=== PATIENT | female | born 1985 | race Caucasian/White ===

== ENCOUNTER 2018-01-29 12:08 | Emergency (ER) | payer OTHER, MEDICAID, SELFPAY ==
[2018-01-29 12:18] VITALS: BP 122/74; PULSE 92; RESP 24; TEMP 37.6; O2SAT 97
--- NOTE | 2018-01-29 12:18 | ED_ITS ---
HPI - Female Genitourinary <GALDINO Jason - Last Filed: 01/29/18 22:24> General Chief complaint: Urogenital-Female Stated complaint: BACK PAIN,FEVER,THINKS KIDNEY ISSUE Time Seen by Provider: 01/29/18 12:19 Source: patient Mode of arrival: ambulatory Limitations: no limitations History of Present Illness HPI Narrative: 32-year-old female with history of depression and is an every day smoker here for complaint of left flank pain and generalized abdominal pain over the last 4 days. She also reports that she has had low-grade fever and increased urinary frequency. Positive p.o. intake. Last bowel movement was One week ago. She states that this is not normal for her. she reports she has been using heroin Intravenously over the past couple of weeks. She denies any blood in her urine. She denies any trauma to the abdomen or the flank area. Related Data Previous Rx's Medication Instructions Recorded sertraline [Zoloft] 150 mg PO Q DAY #45 tab 06/12/16 ciprofloxacin HCl 500 mg PO BID #14 tab 01/29/18 hydrocodone-acetaminophen 1 tab PO Q4-6H PRN #10 tab 01/29/18 Allergies Allergy/AdvReac Type Severity Reaction Status Date / Time SULFA Allergy Severe HIVES Uncoded 08/19/17 12:28 Review of Systems <GALDINO Jason - Last Filed: 01/29/18 22:24> Constitutional Reports fever(s) Eyes Denies change in vision, Denies eye discharge, Denies irritation and Denies loss of vision ENT Ears, Nose, Mouth, and Throat: Denies change in voice, Denies neck pain and Denies sore throat Cardiovascular Denies chest pain, Denies irregular heart rhythm, Denies lightheadedness, Denies palpitations, Denies dyspnea, Denies dyspnea on exertion and Denies orthopnea Respiratory Denies cough, Denies dyspnea, Denies dyspnea on exertion and Denies wheezing Gastrointestinal Gastrointestinal: Reports abdominal pain Genitourinary Reports flank pain and Reports urinary urgency Musculoskeletal Denies neck pain Integumentary/Breasts Denies pruritus, Denies erythema, Denies rash and Denies wounds Neurologic Denies confusion and Denies loss of vision Psychiatric Denies anxiety, Denies confusion, Denies depression, Denies homicidal ideation and Denies suicidal ideation Endocrine Denies palpitations Hematologic/Lymphatic Denies easy bruising Allergic/Immunologic Denies wheezing Exam <GALDINO Jason - Last Filed: 01/29/18 22:24> Initial Vital Signs Initial Vital Signs: Vital Signs Temperature 99.6 F 01/29/18 12:18 Pulse Rate 92 H 01/29/18 12:18 Respiratory Rate 24 01/29/18 12:18 Blood Pressure 122/74 01/29/18 12:18 Pulse Oximetry 97 01/29/18 12:18 Const General: cooperative and well developed Nutritional Appearance: well nourished Orientation: alert, awake, oriented x3 and not confused HENPA Mouth: oral mucosae normal and oropharynx normal Eyes Conjunctivae: conjunctivae normal Sclera: sclerae normal Pupils: PERRL EOM: EOM intact bilaterally Resp Effort & Inspection: normal respiratory effort, able to speak in complete sentences, no respiratory distress and no use of accessory muscles Auscultation: clear to auscultation bilaterally, no rales, no rhonchi and no wheezes Cardio Rate: regular rate Rhythm: regular rhythm Heart Sounds: no click, no gallops, no murmurs and no rubs GI Inspection: non-distended Palpation: soft, no hepatosplenomegaly, No guarding, No pulsatile mass and tender ( Generalized tenderness) Auscultation: normal bowel sounds General: CVA tenderness ( left CVA tenderness) Skin General: no rashes or lesions noted, No jaundice and No petechiae Neuro General: alert, oriented x3, gait normal and no focal motor deficits Speech: speech normal <Arnav Schneider DO - Last Filed: 02/05/18 23:12> Initial Vital Signs Initial Vital Signs: Vital Signs Temperature 99.6 F 01/29/18 12:18 Pulse Rate 92 H 01/29/18 12:18 Respiratory Rate 24 01/29/18 12:18 Blood Pressure 122/74 01/29/18 12:18 Pulse Oximetry 97 01/29/18 12:18 Course <GALDINO Jason - Last Filed: 01/29/18 22:24> Orders Ordered: Discontinued Medications Hydromorphone HCl (Dilaudid) 0.5 mg IV NOW ONE Stop: 01/29/18 12:28 Last Admin: 01/29/18 12:42 Dose: 0.5 mg Hydromorphone HCl (Dilaudid) 1 mg IV NOW ONE Stop: 01/29/18 14:00 Last Admin: 01/29/18 14:27 Dose: 1 mg Sodium Chloride (Normal Saline 0.9%) 1,000 mls @ 1,000 mls/hr IV BOLUS ONE Stop: 01/29/18 13:26 Last Infusion: 01/29/18 15:41 Dose: 0 mls/hr Admin: 01/29/18 12:41 Dose: 1,000 mls/hr Ceftriaxone Sodium/Dextrose (Rocephin) 1 gm in 50 mls @ 100 mls/hr IV NOW ONE Stop: 01/29/18 13:52 Last Infusion: 01/29/18 14:31 Dose: 0 mls/hr Admin: 01/29/18 13:35 Dose: 100 mls/hr Ketorolac Tromethamine (Toradol) 30 mg IV NOW ONE Stop: 01/29/18 12:28 Last Admin: 01/29/18 12:42 Dose: 30 mg Ondansetron HCl (Zofran) 4 mg IV NOW ONE Stop: 01/29/18 12:28 Last Admin: 01/29/18 12:42 Dose: 4 mg Vital Signs - 8 hr 01/29/18 14:37 01/29/18 15:52 Temperature 98.4 F Pulse Rate 81 90 Respiratory Rate 18 16 Blood Pressure 100/68 Pulse Oximetry 100 99 <Arnav Schneider DO - Last Filed: 02/05/18 23:12> Orders Ordered: Discontinued Medications Hydromorphone HCl (Dilaudid) 0.5 mg IV NOW ONE Stop: 01/29/18 12:28 Last Admin: 01/29/18 12:42 Dose: 0.5 mg Hydromorphone HCl (Dilaudid) 1 mg IV NOW ONE Stop: 01/29/18 14:00 Last Admin: 01/29/18 14:27 Dose: 1 mg Sodium Chloride (Normal Saline 0.9%) 1,000 mls @ 1,000 mls/hr IV BOLUS ONE Stop: 01/29/18 13:26 Last Infusion: 01/29/18 15:41 Dose: 0 mls/hr Admin: 01/29/18 12:41 Dose: 1,000 mls/hr Ceftriaxone Sodium/Dextrose (Rocephin) 1 gm in 50 mls @ 100 mls/hr IV NOW ONE Stop: 01/29/18 13:52 Last Infusion: 01/29/18 14:31 Dose: 0 mls/hr Admin: 01/29/18 13:35 Dose: 100 mls/hr Ketorolac Tromethamine (Toradol) 30 mg IV NOW ONE Stop: 01/29/18 12:28 Last Admin: 01/29/18 12:42 Dose: 30 mg Ondansetron HCl (Zofran) 4 mg IV NOW ONE Stop: 01/29/18 12:28 Last Admin: 01/29/18 12:42 Dose: 4 mg Vital Signs - 8 hr 01/29/18 14:37 01/29/18 15:52 Temperature 98.4 F Pulse Rate 81 90 Respiratory Rate 18 16 Blood Pressure 100/68 Pulse Oximetry 100 99 MDM - Female Genitourinary <GALDINO Jason - Last Filed: 01/29/18 22:24> Lab Data Result diagrams: 01/29/18 12:25 01/29/18 12:25 Lab Results 01/29/18 01/29/18 01/29/18 Range/Units 12:25 12:25 12:25 WBC 15.2 H (4.5-11.0) X10^3/uL RBC 4.14 (4.0-5.2) X10^6/uL Hgb 12.7 (12.0-16.0) g/dL Hct 36.2 (36-46) % MCV 87.6 (80-100) fL MCH 30.7 (26-34) PG MCHC 35.0 (30-36) % RDW 13.4 (11.6-14.8) % Plt Count 254 (150-400) X10^3/uL Neut % (Auto) 83.5 H (50-75) % Lymph % (Auto) 7.4 L (25-40) % [place] % (Auto) 8.9 (3-14) % Eos % (Auto) 0.1 L (2-4) % Baso % (Auto) 0.1 (0-2) % Neut # (Auto) 79183 H (7896-9043) /uL Sodium 140 (137-145) mmol/L Potassium 3.5 (3.4-5.1) mmol/L Chloride 100 (98-107) mmol/L Carbon Dioxide 26 (22-32) mmol/L BUN 9 (7-17) mg/dL Creatinine 0.80 (0.52-1.04) mg/dL Estimated GFR > 60.0 (>60) mL/min BUN/Creatinine Ratio 11.3 (6-22) Glucose 155 H (70-100) mg/dL Lactate (0.7-2.1) mmol/L Calcium 8.8 (8.4-10.2) mg/dL Total Bilirubin 0.7 (0.2-1.3) mg/dL AST 18 (14-36) IU/L ALT 32 (9-52) IU/L Alkaline Phosphatase 89 (38-126) U/L Total Protein 7.5 (6.3-8.2) g/dL Albumin 4.3 (3.5-5.0) g/dL Globulin 3.2 (1.7-4.1) g/dL Albumin/Globulin Ratio 1.3 (1.0-2.8) Lipase < 10 L (23-300) U/L Procalcitonin 0.31 (<0.5) ng/mL Urine Color Urine Appearance Urine pH (4.5-8.0) Ur Specific [place] (1.000-1.035) Urine Protein (Negative) Urine Glucose (UA) (Normal) g/dL Urine Ketones (NEGATIVE) Urine Occult Blood (Negative) Urine Nitrate (Negative) Urine Bilirubin (NEGATIVE) Urine Urobilinogen (0.2) E.U./dL Ur Leukocyte Esterase (NEGATIVE) Urine RBC (0-5/HPF) Urine WBC (0-5/HPF) Ur Squamous Epith Cells Urine Bacteria (None) Ur Culture Indicated? Micro UA Comment 01/29/18 01/29/18 Range/Units 12:25 13:21 WBC (4.5-11.0) X10^3/uL RBC (4.0-5.2) X10^6/uL Hgb (12.0-16.0) g/dL Hct (36-46) % MCV (80-100) fL MCH (26-34) PG MCHC (30-36) % RDW (11.6-14.8) % Plt Count (150-400) X10^3/uL Neut % (Auto) (50-75) % Lymph % (Auto) (25-40) % [place] % (Auto) (3-14) % Eos % (Auto) (2-4) % Baso % (Auto) (0-2) % Neut # (Auto) (9557-5763) /uL Sodium (137-145) mmol/L Potassium (3.4-5.1) mmol/L Chloride (98-107) mmol/L Carbon Dioxide (22-32) mmol/L BUN (7-17) mg/dL Creatinine (0.52-1.04) mg/dL Estimated GFR (>60) mL/min BUN/Creatinine Ratio (6-22) Glucose (70-100) mg/dL Lactate 0.9 (0.7-2.1) mmol/L Calcium (8.4-10.2) mg/dL Total Bilirubin (0.2-1.3) mg/dL AST (14-36) IU/L ALT (9-52) IU/L Alkaline Phosphatase (38-126) U/L Total Protein (6.3-8.2) g/dL Albumin (3.5-5.0) g/dL Globulin (1.7-4.1) g/dL Albumin/Globulin Ratio (1.0-2.8) Lipase (23-300) U/L Procalcitonin (<0.5) ng/mL Urine Color Yellow Urine Appearance Cloudy Urine pH 5.0 (4.5-8.0) Ur Specific [place] 1.015 (1.000-1.035) Urine Protein 2+ H (Negative) Urine Glucose (UA) Negative (Normal) g/dL Urine Ketones Trace H (NEGATIVE) Urine Occult Blood 3+ H (Negative) Urine Nitrate Positive H (Negative) Urine Bilirubin Negative (NEGATIVE) Urine Urobilinogen 0.2 (0.2) E.U./dL Ur Leukocyte Esterase 2+ H (NEGATIVE) Urine RBC 1-5/hpf (0-5/HPF) Urine WBC >100/hpf H (0-5/HPF) Ur Squamous Epith Cells 1-5 /hpf Urine Bacteria Many (>30) H (None) Ur Culture Indicated? Specimen cultured Micro UA Comment Not Reportable Point of Care Testing Test Results Negative Urine Dip Bedside Urine Glucose Negative Bedside Urine Bilirubin - Negative Bedside Urine Ketone +/- 5 Urine Specific [place] 1.020 Bedside Urine Occult Blood ++ Bedside Urine pH 6.0 Bedside Urine Protein ++ 100 Bedside Urine Urobilinogen - Negative Bedside Urine Nitrite + Positive Bedside Urine Leukocytes +++ [address] scan - abdomen: Radiologist's impression: [address] [id number] [address] Scan Report Signed Patient: Macarena Banuelos MMR#: [id number] : 1985Acct:[id number] Age/Sex: 32 / FDate of Service: 01/29/18 Loc: ED Accession Number: [id number] Procedure: CT abdomen pelvis w con Ordering Provider: Fritz Youngblood PROCEDURE: CT ABDOMEN PELVIS W CON INDICATIONS: Generalized abdominal pain and left flank pain TECHNIQUE: After the administration of oral and intravenous contrast, 5 mm thick sections acquired from the diaphragms to the symphysis. 5 mm thick coronal and sagittal reformats were performed. For radiation dose reduction, the following was used: automated exposure control, adjustment of mA and/or kV according to patient size. COMPARISON: None. FINDINGS: Image quality: Diagnostic. ABDOMEN: Lung bases: There is mild atelectasis identified within the bilateral posterior lung bases. The heart is normal in size. There is no pericardial effusion. Heart size is normal. Solid organs: The liver is normal in size. The patient has had a prior cholecystectomy. There is mild intrahepatic and extrahepatic biliary dilatation, which may be within normal limits, given the patient's prior cholecystectomy. The spleen is mildly enlarged approximately 12.5 cm in AP dimension. No focal splenic lesions are evident. The pancreas and adrenals are unremarkable. The right kidney is within normal limits. There is perinephric edema identified about the left kidney with corresponding urothelial enhancement and mild prominence of the left ureter. There is a calcification identified near the expected location of the distal vesicoureteral junction, which may represent a phlebolith. However, the possibility of a small partially obstructing left ureteral calculus is difficult to exclude. Peritoneum and bowel: Stomach, small bowel, and colon loops are normal in caliber and wall thickness. No free fluid or air. No loculated fluid collections are evident. The appendix is not definitely seen and may be surgically absent. There is a large amount of residual stool identified within the colon. Nodes and vessels: No retroperitoneal or mesenteric adenopathy. Aorta and inferior vena cava are normal in caliber. Miscellaneous: No ventral hernias. PELVIS: Genitourinary: Bladder wall thickness is normal. The uterus and ovaries do not appear to be enlarged. Miscellaneous: No inguinal hernias or adenopathy. There is no free fluid or loculated fluid collection. Bones: No suspicious bony lesions. No vertebral body compression fractures. IMPRESSION: 1. Prominent left perinephric and periureteral edema is most suspicious for an ascending urinary tract infection/developing pyelonephritis. However, there is a calcification near the expected location of the vesicoureteral junction. The possibility of partially obstructing calculus with superimposed infection is difficult to exclude. Please correlate clinically. 2. Colonic constipation. 3. Mild bibasilar atelectasis. 4. Mild intrahepatic and extrahepatic biliary dilatation likely is related to previous cholecystectomy. 5. Mild splenomegaly. Dictated by: Carlos Golden M.D. on 01/29/2018 at 12:32 Approved by: Carlos Golden M.D. on 01/29/2018 at 12:40 MDM Narrative Medical decision making narrative: CT shows elevated white count of 15 K. Chem panel and lipase were obtained were unremarkable. Urinalysis indicates urinary tract infection. CT of the abdomen was obtained and shows some fat stranding and inflammation to the left kidney. There is a possible partial obstructing small stone. Discussed case with Urology at doctor enciso who feels the patient is safe to go home on oral antibiotics with close follow- up. She is instructed to return to the emergency room right away for worsening fever. Worsening pain or other complications. Follow up with primary care provider in the next few days for re-evaluation. Plenty of fluids. She is prescribed ciprofloxacin. Zofran for any nausea vomiting. And Colbert for pain. <Arnav Schneider, DO - Last Filed: 02/05/18 23:12> Lab Data Lab Results 01/29/18 01/29/18 01/29/18 Range/Units 12:25 12:25 12:25 WBC 15.2 H (4.5-11.0) X10^3/uL RBC 4.14 (4.0-5.2) X10^6/uL Hgb 12.7 (12.0-16.0) g/dL Hct 36.2 (36-46) % MCV 87.6 (80-100) fL MCH 30.7 (26-34) PG MCHC 35.0 (30-36) % RDW 13.4 (11.6-14.8) % Plt Count 254 (150-400) X10^3/uL Neut % (Auto) 83.5 H (50-75) % Lymph % (Auto) 7.4 L (25-40) % [place] % (Auto) 8.9 (3-14) % Eos % (Auto) 0.1 L (2-4) % Baso % (Auto) 0.1 (0-2) % Neut # (Auto) 26096 H (4503-1960) /uL Sodium 140 (137-145) mmol/L Potassium 3.5 (3.4-5.1) mmol/L Chloride 100 (98-107) mmol/L Carbon Dioxide 26 (22-32) mmol/L BUN 9 (7-17) mg/dL Creatinine 0.80 (0.52-1.04) mg/dL Estimated GFR > 60.0 (>60) mL/min BUN/Creatinine Ratio 11.3 (6-22) Glucose 155 H (70-100) mg/dL Lactate (0.7-2.1) mmol/L Calcium 8.8 (8.4-10.2) mg/dL Total Bilirubin 0.7 (0.2-1.3) mg/dL AST 18 (14-36) IU/L ALT 32 (9-52) IU/L Alkaline Phosphatase 89 (38-126) U/L Total Protein 7.5 (6.3-8.2) g/dL Albumin 4.3 (3.5-5.0) g/dL Globulin 3.2 (1.7-4.1) g/dL Albumin/Globulin Ratio 1.3 (1.0-2.8) Lipase < 10 L (23-300) U/L Procalcitonin 0.31 (<0.5) ng/mL Urine Color Urine Appearance Urine pH (4.5-8.0) Ur Specific [place] (1.000-1.035) Urine Protein (Negative) Urine Glucose (UA) (Normal) g/dL Urine Ketones (NEGATIVE) Urine Occult Blood (Negative) Urine Nitrate (Negative) Urine Bilirubin (NEGATIVE) Urine Urobilinogen (0.2) E.U./dL Ur Leukocyte Esterase (NEGATIVE) Urine RBC (0-5/HPF) Urine WBC (0-5/HPF) Ur Squamous Epith Cells Urine Bacteria (None) Ur Culture Indicated? Micro UA Comment 01/29/18 01/29/18 Range/Units 12:25 13:21 WBC (4.5-11.0) X10^3/uL RBC (4.0-5.2) X10^6/uL Hgb (12.0-16.0) g/dL Hct (36-46) % MCV (80-100) fL MCH (26-34) PG MCHC (30-36) % RDW (11.6-14.8) % Plt Count (150-400) X10^3/uL Neut % (Auto) (50-75) % Lymph % (Auto) (25-40) % [place] % (Auto) (3-14) % Eos % (Auto) (2-4) % Baso % (Auto) (0-2) % Neut # (Auto) (7395-6068) /uL Sodium (137-145) mmol/L Potassium (3.4-5.1) mmol/L Chloride (98-107) mmol/L Carbon Dioxide (22-32) mmol/L BUN (7-17) mg/dL Creatinine (0.52-1.04) mg/dL Estimated GFR (>60) mL/min BUN/Creatinine Ratio (6-22) Glucose (70-100) mg/dL Lactate 0.9 (0.7-2.1) mmol/L Calcium (8.4-10.2) mg/dL Total Bilirubin (0.2-1.3) mg/dL AST (14-36) IU/L ALT (9-52) IU/L Alkaline Phosphatase (38-126) U/L Total Protein (6.3-8.2) g/dL Albumin (3.5-5.0) g/dL Globulin (1.7-4.1) g/dL Albumin/Globulin Ratio (1.0-2.8) Lipase (23-300) U/L Procalcitonin (<0.5) ng/mL Urine Color Yellow Urine Appearance Cloudy Urine pH 5.0 (4.5-8.0) Ur Specific [place] 1.015 (1.000-1.035) Urine Protein 2+ H (Negative) Urine Glucose (UA) Negative (Normal) g/dL Urine Ketones Trace H (NEGATIVE) Urine Occult Blood 3+ H (Negative) Urine Nitrate Positive H (Negative) Urine Bilirubin Negative (NEGATIVE) Urine Urobilinogen 0.2 (0.2) E.U./dL Ur Leukocyte Esterase 2+ H (NEGATIVE) Urine RBC 1-5/hpf (0-5/HPF) Urine WBC >100/hpf H (0-5/HPF) Ur Squamous Epith Cells 1-5 /hpf Urine Bacteria Many (>30) H (None) Ur Culture Indicated? Specimen cultured Micro UA Comment Not Reportable Point of Care Testing Test Results Negative Urine Dip Bedside Urine Glucose Negative Bedside Urine Bilirubin - Negative Bedside Urine Ketone +/- 5 Urine Specific [place] 1.020 Bedside Urine Occult Blood ++ Bedside Urine pH 6.0 Bedside Urine Protein ++ 100 Bedside Urine Urobilinogen - Negative Bedside Urine Nitrite + Positive Bedside Urine Leukocytes +++ 500 Esterase Discharge Plan Departure Patient Disposition: Home Clinical Impression: Pyelonephritis Discharge Date/Time: 01/29/18 15:55 Interventions: ED Discharge Assessment Last Done: 01/29/18 15:52 Instructions: DI for Kidney Infection Activity Restrictions/Additional Instructions: laboratory results indicate elevated white count and urinalysis indicates urinary tract infection. CT of the abdomen shows inflammation to the left kidney area indicating a kidney infection. You have been placed on an antibiotic called ciprofloxacin use as directed. UR also prescribed Zofran to help with any nausea also use as directed. Colbert is prescribed for pain no driving while on the Col[place]. Follow up with her primary care provider in the next couple days for re-evaluation. Plenty of fluids and rest. For any worsening symptoms return to the emergency room. Prescriptions: New hydrocodone-acetaminophen 5-325 mg tablet 1 tab PO Q4-6H PRN (Reason: pain) Qty: 10 RF: 0 ciprofloxacin HCl 500 mg tablet 500 mg PO BID Qty: 14 RF: 0 No Action sertraline [Zoloft] 100 MG tablet 150 mg PO Q DAY Qty: 45 RF: 3 Referrals: Lisa pSann PA-C [Primary Care Provider] - <Arnav Schneider DO - Last Filed: 02/05/18 23:12> Cosign ED Attending Cosignature Attestation: I was immediately available in the department for consultation. Documentation has been reviewed. I agree with assessment and plan.
[2018-01-29] MEDS: SODIUM CHLORIDE 0.9% 1,000 ML 1000 ML IV (12:41)
[2018-01-29 12:42] LABS: Add Manual Diff / Slide Review NO; Basophils Percent Auto 0.1 % (0-2); Eosinophils Percent Auto 0.1 % (2-4); Hematocrit 36.2 % (36-46); Hemoglobin 12.7 g/dL (12.0-16.0); Lymphocytes Percent Auto 7.4 % (25-40); Mean Corpuscular Hemoglobin 30.7 PG (26-34); Mean Corpuscular Volume 87.6 fL (80-100); Monocytes Percent Auto 8.9 % (3-14); Neutrophils Absolute Auto 12700 /uL (3000-5900); Neutrophils Percent Auto 83.5 % (50-75); Platelet Count 254 X10^3/uL (150-400); Red Blood Cell Count 4.14 X10^6/uL (4.0-5.2); Red Cell Distribution Width 13.4 % (11.6-14.8); White Blood Cell Count 15.2 X10^3/uL (4.5-11.0)
[2018-01-29] MEDS: KETOROLAC 60 MG/2 ML VIAL 30 MG IV (12:42)
[2018-01-29] MEDS: ONDANSETRON 4 MG/2 ML INJ IV (12:42)
[2018-01-29] MEDS: HYDROMORPHONE 1 MG INJ 0.5 MG IV (12:42)
[2018-01-29 12:58] LABS: Alanine Aminotransferase 32 IU/L (9-52); Albumin 4.3 g/dL (3.5-5.0); Albumin Globulin Ratio 1.3 (1.0-2.8); Alkaline Phosphatase 89 U/L (38-126); Aspartate Aminotransferase 18 IU/L (14-36); BUN Creatinine Ratio 11.3 (6-22); Bilirubin Total 0.7 mg/dL (0.2-1.3); Blood Urea Nitrogen 9 mg/dL (7-17); Calcium 8.8 mg/dL (8.4-10.2); Carbon Dioxide 26 mmol/L (22-32); Chloride 100 mmol/L (98-107); Estimated Glomerular Filt Rate > 60.0 mL/min (>60); Globulin 3.2 g/dL (1.7-4.1); Glucose 155 mg/dL (70-100); HEMOLYSIS < 15 (0-50); Potassium 3.5 mmol/L (3.4-5.1); Sodium 140 mmol/L (137-145); Total Protein 7.5 g/dL (6.3-8.2)
[2018-01-29 13:00] LABS: Lipase < 10 U/L (23-300)
--- NOTE | 2018-01-29 13:11 | DI.CT.S_ITS ---
PROCEDURE: CT ABDOMEN PELVIS W CON INDICATIONS: Generalized abdominal pain and left flank pain TECHNIQUE: After the administration of oral and intravenous contrast, 5 mm thick sections acquired from the diaphragms to the symphysis. 5 mm thick coronal and sagittal reformats were performed. For radiation dose reduction, the following was used: automated exposure control, adjustment of mA and/or kV according to patient size. COMPARISON: None. FINDINGS: Image quality: Diagnostic. ABDOMEN: Lung bases: There is mild atelectasis identified within the bilateral posterior lung bases. The heart is normal in size. There is no pericardial effusion. Heart size is normal. Solid organs: The liver is normal in size. The patient has had a prior cholecystectomy. There is mild intrahepatic and extrahepatic biliary dilatation, which may be within normal limits, given the patient's prior cholecystectomy. The spleen is mildly enlarged approximately 12.5 cm in AP dimension. No focal splenic lesions are evident. The pancreas and adrenals are unremarkable. The right kidney is within normal limits. There is perinephric edema identified about the left kidney with corresponding urothelial enhancement and mild prominence of the left ureter. There is a calcification identified near the expected location of the distal vesicoureteral junction, which may represent a phlebolith. However, the possibility of a small partially obstructing left ureteral calculus is difficult to exclude. Peritoneum and bowel: Stomach, small bowel, and colon loops are normal in caliber and wall thickness. No free fluid or air. No loculated fluid collections are evident. The appendix is not definitely seen and may be surgically absent. There is a large amount of residual stool identified within the colon. Nodes and vessels: No retroperitoneal or mesenteric adenopathy. Aorta and inferior vena cava are normal in caliber. Miscellaneous: No ventral hernias. PELVIS: Genitourinary: Bladder wall thickness is normal. The uterus and ovaries do not appear to be enlarged. Miscellaneous: No inguinal hernias or adenopathy. There is no free fluid or loculated fluid collection. Bones: No suspicious bony lesions. No vertebral body compression fractures. IMPRESSION: 1. Prominent left perinephric and periureteral edema is most suspicious for an ascending urinary tract infection/developing pyelonephritis. However, there is a calcification near the expected location of the vesicoureteral junction. The possibility of partially obstructing calculus with superimposed infection is difficult to exclude. Please correlate clinically. 2. Colonic constipation. 3. Mild bibasilar atelectasis. 4. Mild intrahepatic and extrahepatic biliary dilatation likely is related to previous cholecystectomy. 5. Mild splenomegaly. Dictated by: Carlos Golden M.D. on 01/29/2018 at 12:32 Approved by: Carlos Golden M.D. on 01/29/2018 at 12:40
[2018-01-29 13:32] LABS: Appearance Urine UA CLOUDY; Bilirubin Urine UA NEGATIVE (NEGATIVE); Color Urine UA YELLOW; Glucose Urine UA NEGATIVE (Normal); Ketones Urine UA TRACE (NEGATIVE); Leukocyte Esterase Urine UA 2+ (NEGATIVE); Nitrite Urine UA POSITIVE (Negative); Occult Blood Urine UA 3+ (Negative); Protein Urine UA 2+ (Negative); Specific Gravity Urine UA 1.015 (1.000-1.035); Urobilinogen Urine UA 0.2 E.U./dL (0.2)
[2018-01-29] MEDS: CEFTRIAXONE 1 GM/50 ML FROZ.PIGGY IV (13:35)
[2018-01-29 13:42] LABS: Bacteria Urine Many (>30); Culture Indicated Urine Specimen Cultured; RBC Urine 1-5/HPF (0-5/HPF); Squamous Epithelial Cell Urine 1-5 /HPF; WBC Urine >100/HPF (0-5/HPF)
[2018-01-29 13:42] LABS: Lactate (Lactic Acid) 0.9 mmol/L (0.7-2.1)
[2018-01-29 13:57] LABS: Procalcitonin 0.31 ng/mL (<0.5)
[2018-01-29] MEDS: HYDROMORPHONE 1 MG INJ IV (14:27)
[2018-01-29 14:37] VITALS: PULSE 81; RESP 18; O2SAT 100
[2018-01-29 15:52] VITALS: BP 100/68; PULSE 90; RESP 16; TEMP 36.9; O2SAT 99
== END 2018-01-29 15:55 | disposition home or self-care (01) ==
PROVIDERS: Emergency Provider Nurse Practitioner Family; Family Provider Nurse Practitioner Family; PCP Physician Assistant
DX: N12 Tubulo-interstitial nephritis, not specified as acute or chronic (principal)
CPT/HCPCS: 36415; 36591; 74177; 80053; 81001; 81003; 81025; 83605; 83690; 84145; 85025; 87040; 87077; 87086; 87186; 96361; 96365; 96375; 96376; 99283; 99285; J1170; J1885; J2405; Q9967

== ENCOUNTER 2018-02-12 04:19 | Emergency (ER) | payer OTHER, MEDICAID, SELFPAY ==
[2018-02-12 04:29] VITALS: BP 139/90; PULSE 95; RESP 18; TEMP 36.6; O2SAT 97; BMI 29.2
--- NOTE | 2018-02-12 04:58 | ED.SKABFB ---
HPI - Skin/Abscess/Foreign Bdy General Chief complaint: Skin/Abscess/Foreign Body Stated complaint: right forearm swollen, abscess Time Seen by Provider: 02/12/18 04:25 Source: patient Mode of arrival: ambulatory Limitations: no limitations History of Present Illness HPI narrative: patient is a 32-year-old female here for evaluation of which he thinks is an abscess on her right forearm and also in her genital area. She states that the abscess in the right forearm has been there for approximately 4 days. She does admit to be a IV drug user and did inject herself at that site. Has never had an abscess that has needed to be drained in the past. She states that the abscess in her groin has been there for the past couple days. She states that this is unrelated to any injections. She states that this abscess has been draining green material for the past day or so. No fevers. Related Data Previous Rx's Medication Instructions Recorded sertraline [Zoloft] 150 mg PO Q DAY #45 tab 06/12/16 ciprofloxacin HCl 500 mg PO BID #14 tab 01/29/18 hydrocodone-acetaminophen 1 tab PO Q4-6H PRN #10 tab 01/29/18 doxycycline monohydrate 100 mg PO BID 7 Days #14 cap 02/12/18 Allergies Allergy/AdvReac Type Severity Reaction Status Date / Time SULFA Allergy Severe HIVES Uncoded 08/19/17 12:28 Review of Systems Constitutional Denies fever(s) and Denies headache(s) ENT Ears, Nose, Mouth, and Throat: Denies headache(s) Cardiovascular Denies chest pain and Denies dyspnea Respiratory Denies dyspnea Gastrointestinal Gastrointestinal: Denies abdominal pain, Denies nausea and Denies vomiting Genitourinary Denies dysuria and Denies vaginal discharge Musculoskeletal Denies myalgias and Denies arthralgias Integumentary/Breasts Comments: Abscess and redness to the right forearm and also to the groin Neurologic Denies headache(s) Hematologic/Lymphatic Denies easy bleeding and Denies easy bruising [facility] Medical History Drug abuse (Acute) Surgical History No pertinent past surgical history (Acute) Social History (Reviewed 02/12/18 @ 05:00 by KATHARINE Judge Smoking Status: Current every day smoker Exam Initial Vital Signs Initial Vital Signs: Vital Signs Temperature 98 F 02/12/18 04:29 Pulse Rate 95 H 02/12/18 04:29 Respiratory Rate 18 02/12/18 04:29 Blood Pressure 139/90 02/12/18 04:29 Pulse Oximetry 97 02/12/18 04:29 Const General: cooperative, comfortable, well developed, well groomed and No acute distress Orientation: alert, awake and oriented x3 Resp Effort & Inspection: normal respiratory effort Skin Other: patient with a 3 cm round indurated red area on the volar aspect of the right forearm just distal to the elbow. Has a 20-25 cm area of surrounding erythema. Patient with a 4 cm area of induration on the right labia majora. Has a 0.5 cm area that is spontaneously draining. No surrounding erythema. Procedures Abscess I/D Site: upper extremity Side (if applicable): right Sedation/analgesia: none Local Anesthetic: lidocaine 1% and with epi Amount of anesthesia used (mL): 6 Technique: other ( Fifteen blade) Amount of fluid expressed (mL): 20 Irrigation: No Packing used?: iodoform Complications: pain Course Vital Signs - 8 hr 02/12/18 04:29 Temperature 98 F Pulse Rate 95 H Respiratory Rate 18 Blood Pressure 139/90 Pulse Oximetry 97 MDM - Skin/Abscess/Foreign Bdy MDM Narrative Medical decision making narrative: bedside ultrasound shows the right forearm abscess. This was incised and drained as described above. Patient tolerated procedure well. The right labia majora abscess was also incised with a 15 blade. Only a small amount of purulent material returned. No packing was used in this area. Patient tolerated this procedure well. This was anesthetized with approximately 3 cc of 1% lidocaine with epinephrine. Secondary to the surrounding cellulitis of the right forearm abscess will start the patient on antibiotics. Also sent home with the short course of pain medication. Patient was given care instructions. She was instructed she needed to contact her primary care doctor for a follow-up. She was given return instructions. She expressed understanding and agreement with plan. Discharge Plan Departure Patient Disposition: Home Clinical Impression: Abscess of skin or subcutaneous tissue Instructions: Drug Abuse and Drug Addiction, Incision and Drainage of a Skin Abscess Activity Restrictions/Additional Instructions: the packing in the incision of her right forearm does need to be removed/ changed in 48 hr. This can be done by her primary doctor. Call your primary doctor for a follow-up. You can shower like normal. You can use soap and water like normal. Take all the medications as directed. Return to the emergency department for any new or worsening symptoms Prescriptions: New doxycycline monohydrate 100 mg capsule 100 mg PO BID 7 Days Qty: 14 RF: 0 No Action sertraline [Zoloft] 100 MG tablet 150 mg PO Q DAY Qty: 45 RF: 3 hydrocodone-acetaminophen 5-325 mg tablet 1 tab PO Q4-6H PRN (Reason: pain) Qty: 10 RF: 0 ciprofloxacin HCl 500 mg tablet 500 mg PO BID Qty: 14 RF: 0
[2018-02-12] MEDS: HYDROCODONE/ACET 5/325 PREPACK 1 BOTTLE MISC (05:13)
--- NOTE | 2018-02-18 15:37 | PC.NURSE ---
Pt called for follow up,pts condition improving. Pt did not feel like we could have done anything to improve visit.
== END 2018-02-12 05:18 | disposition home or self-care (01) ==
PROVIDERS: Emergency Provider Emergency Medicine; Family Provider Nurse Practitioner Family; PCP Physician Assistant
DX: L02.413 Cutaneous abscess of right upper limb (principal)
CPT/HCPCS: 10060; 99282

== ENCOUNTER 2018-03-23 16:50 | Emergency (ER) | payer OTHER, MEDICAID, SELFPAY ==
[2018-03-23 16:57] VITALS: BP 121/82; PULSE 111; RESP 20; TEMP 37.1; O2SAT 99; BMI 26.6
--- NOTE | 2018-03-23 18:26 | PC.NURSE ---
pt given ice pack for arm in waiting room.
--- NOTE | 2018-03-23 19:15 | PC.NURSE ---
pt not in waiting room, walked out to parking lot no sign of pt. pin attacher aware.
--- NOTE | 2018-03-23 19:59 | PC.NURSE ---
pt returned to ER, explained to pt in order to be seen they must be present in waiting room when called. Pt verbalized understanding. hot metal charger aware.
[2018-03-23 21:12] LABS: Alanine Aminotransferase 40 IU/L (9-52); Albumin 3.9 g/dL (3.5-5.0); Albumin Globulin Ratio 1.3 (1.0-2.8); Alkaline Phosphatase 88 U/L (38-126); Aspartate Aminotransferase 43 IU/L (14-36); Bilirubin Total 0.5 mg/dL (0.2-1.3); Blood Urea Nitrogen 6 mg/dL (7-17); Calcium 8.5 mg/dL (8.4-10.2); Carbon Dioxide 27 mmol/L (22-32); Chloride 100 mmol/L (98-107); Estimated Glomerular Filt Rate > 60.0 mL/min (>60); Glucose 87 mg/dL (70-100); HEMOLYSIS 31 (0-50); Potassium 3.8 mmol/L (3.4-5.1); Sodium 140 mmol/L (137-145); Total Protein 6.9 g/dL (6.3-8.2)
[2018-03-23 21:14] LABS: Add Manual Diff / Slide Review NO; Basophils Percent Auto 0.6 % (0-2); Eosinophils Percent Auto 1.4 % (2-4); Hematocrit 35.9 % (36-46); Lymphocytes Percent Auto 17.4 % (25-40); Mean Corpuscular HGB Conc 33.4 % (30-36); Mean Corpuscular Hemoglobin 29.4 PG (26-34); Mean Corpuscular Volume 88.1 fL (80-100); Monocytes Percent Auto 7.8 % (3-14); Neutrophils Absolute Auto 8800 /uL (3000-5900); Neutrophils Percent Auto 72.8 % (50-75); Platelet Count 338 X10^3/uL (150-400); Red Blood Cell Count 4.08 X10^6/uL (4.0-5.2); Red Cell Distribution Width 13.8 % (11.6-14.8)
--- NOTE | 2018-03-23 22:08 | DI.US.S_ITS ---
PROCEDURE: US EXTREMELY NONVASC UPPER RT INDICATIONS: abscess, appears over vascular area TECHNIQUE: Real-time scanning was performed of the right antecubital fossa, with image documentation. COMPARISON: [facility], US, US EXTREMITY NONVASC UPPER LT, 03/23/2018, 23:30. FINDINGS: 3.9 x 1.5 x 4.1 cm region of ill-defined heterogeneous mass within the right antecubital fossa corresponding to the palpable abnormality. Color flow Doppler demonstrates internal vascularity. IMPRESSION: Findings suggestive of right antecubital fossa phlegmon and no drainable fluid collection seen at this time. Note: These findings are concordant with the preliminary interpretation. Dictated by: Torito COLLINS Interpreted: Parisa Garcia MD on 03/24/2018 at 8:04 Approved by: Parisa Garcia M.D. on 03/24/2018 at 15:38
--- NOTE | 2018-03-23 22:08 | DI.US.S_ITS ---
PROCEDURE: US EXTREMITY NONVASC UPPER LT INDICATIONS: ANTECUBITAL FOSSA MASS; POSSIBLE ABSCESS TECHNIQUE: Real-time scanning was performed of the left antecubital fossa, with image documentation. COMPARISON: [facility], US, US EXTREMELY NONVASC UPPER RT, 03/23/2018, 23:33. [facility], CT, CT ABDOMEN PELVIS W CON, 01/29/2018, 13:04. FINDINGS: 5.5 x 2.5 x 4.4 cm complex, ill-defined soft tissue mass present corresponding to the palpable abnormality. Color Doppler demonstrates internal vascularity. IMPRESSION: Findings suggesting phlegmon involving the left antecubital fossa and no drainable fluid collection is seen at this time. Note: These findings are concordant with the preliminary interpretation. Dictated by: Torito COLLINS Interpreted: Parisa Garcia MD on 03/24/2018 at 8:02 Approved by: Praisa Garcia M.D. on 03/24/2018 at 15:38
--- NOTE | 2018-03-23 22:09 | ED.SKABFB ---
HPI - Skin/Abscess/Foreign Bdy General Chief complaint: Skin/Abscess/Foreign Body Stated complaint: STATES ABSCESSES ON BOTH ARMS Time Seen by Provider: 03/23/18 21:58 Source: patient Mode of arrival: ambulatory Limitations: no limitations History of Present Illness HPI narrative: This is a 32-year-old female comes to the emergency department with complaint of abscesses in her bilateral upper extremities. Patient states that she injected about 4 5 days ago on both sides. She started having swelling signs of infection. She may have had some fevers, she has had some nausea and vomiting. No chest pain, no shortness of breath. No new GI or urinary symptoms. She is having quite a bit of pain in her upper extremities and in the area of the swelling. No numbness or tingling, no weakness or difficulty with litigation services manager. She denies any other medical history. She denies any prior surgeries. She has an allergy to sulfa antibiotics. Related Data Previous Rx's Medication Instructions Recorded sertraline [Zoloft] 150 mg PO Q DAY #45 tab 06/12/16 clindamycin HCl 300 mg PO QID #40 cap 03/24/18 meloxicam [Mobic] 7.5 mg PO BID #10 tab 03/24/18 Allergies Allergy/AdvReac Type Severity Reaction Status Date / Time Sulfa (Sulfonamide Allergy Verified 03/23/18 17:00 Antibiotics) Review of Systems Review of Systems All systems reviewed & are unremarkable except as noted in HPI and below Constitutional Reports chills, Denies fever(s) and Denies weakness Cardiovascular Denies chest pain and Denies dyspnea Respiratory Denies dyspnea Gastrointestinal Gastrointestinal: Denies abdominal pain, Reports nausea and Reports vomiting Genitourinary Denies urinary frequency Musculoskeletal Denies tingling Integumentary/Breasts Reports erythema, Reports skin swelling and Reports wounds Neurologic Denies focal weakness, Denies tingling and Denies weakness [facility] Medical History Drug abuse (Acute) Surgical History No pertinent past surgical history (Acute) Social History Smoking Status: Current every day smoker Exam Narrative Exam Narrative: GENERAL: Alert and oriented x three, Obese, well-appearing female in moderate distress. HEENT: Head normocephalic, atraumatic, EOMI, pupils reactive, face symmetric, moist mucous membranes NECK: Supple, full range of motion CARDIOVASCULAR: Regular rate and rhythm without murmurs, rubs or gallops. RESPIRATORY: Breath sounds equal bilaterally, no wheezes rales or rhonchi. ABDOMEN: Soft, nontender. Normoactive bowel sounds all 4 quadrants. No guarding or rebound, rigidity, no mass : No CVA tenderness EXTREMITIES: Normal range of motion, no clubbing, Patient has a a large abscess on both the right and left inner elbow, Um over the area where her brachial artery would be. It is erythematous, both or fluctuant, the Um left has some skin breakdown adjacent, there is no circumferential erythema but it is extending about 4 5 cm out. Um on the right patient has a small area of 4 cm, there is fluctuance also over the area where the brachial artery would be.. Neurovascularly intact. Patient has 2+ radial pulses bilaterally. She has full range of motion although she does not wish to flex and bend her elbows. NEUROLOGICAL: Cranial nerves II through XII grossly intact. Moving all extremities SKIN: Warm, dry, no petechiae, no rashes or lesions. Initial Vital Signs Initial Vital Signs: Vital Signs Temperature 98.7 F 03/23/18 16:57 Pulse Rate 111 H 03/23/18 16:57 Respiratory Rate 20 03/23/18 16:57 Blood Pressure 121/82 03/23/18 16:57 Pulse Oximetry 99 03/23/18 16:57 Procedures Abscess I/D Site: upper extremity (left forearm) Side (if applicable): left Local Anesthetic: lidocaine 1% Amount of anesthesia used (mL): 6 Technique: incised with #11 blade Amount of fluid expressed (mL): 15 Packing used?: iodoform [facility] Procedure Name of Procedure: I and D #2. right forearm/elbow. Area was prepped. 4 cc of lidocaine was injected into the site. No blood was aspirated prior to injection. Abscess was incised with a[11] blade. There was moderate purulent drainage. Area was probed to break up loculations, abscess was packed with iodoform cultures were obtained. Hemostasis was achieved. Course Orders Ordered: ED Orders 03/23/18 20:50 Complete Blood Count AUTO DIFF Stat Comprehensive Metabolic Panel Stat 03/23/18 22:08 US extremity nonvasc upper lt Stat US extremity nonvasc upper rt Stat 03/24/18 02:44 Abscess Culture Stat Discontinued Medications Clindamycin HCl (Cleocin) 300 mg PO NOW ONE Stop: 03/24/18 01:56 Last Admin: 03/24/18 02:03 Dose: 300 mg Diphtheria/Tetanus/Acell Pertussis (Adacel) 0.5 ml IM .ONCE ONE Stop: 03/24/18 01:56 Last Admin: 03/24/18 02:03 Dose: 0.5 ml Hydromorphone HCl (Dilaudid) 1 mg IV NOW ONE Stop: 03/23/18 22:08 Last Admin: 03/23/18 22:36 Dose: 1 mg Hydromorphone HCl (Dilaudid) 1 mg IV NOW ONE Stop: 03/24/18 00:11 Last Admin: 03/24/18 00:26 Dose: 1 mg Hydromorphone HCl (Dilaudid) 1 mg IV NOW ONE Stop: 03/24/18 01:56 Last Admin: 03/24/18 02:03 Dose: 1 mg Vancomycin HCl 1,500 mg/ (Sodium Chloride) 500 mls @ 333.333 mls/hr IV NOW ONE Stop: 03/23/18 22:08 Last Infusion: 03/24/18 00:47 Dose: 0 mls/hr Admin: 03/23/18 22:36 Dose: 333.333 mls/hr Vital Signs - 8 hr 03/23/18 22:57 03/23/18 23:12 Temperature 98.4 F Pulse Rate 86 Respiratory Rate 20 Blood Pressure [Right Arm] 108/65 Pulse Oximetry 96 MDM - Skin/Abscess/Foreign Bdy Lab Data Result diagrams: 03/23/18 20:50 03/23/18 20:50 Lab Results 03/23/18 03/23/18 Range/Units 20:50 20:50 WBC 12.0 H (4.5-11.0) X10^3/uL RBC 4.08 (4.0-5.2) X10^6/uL Hgb 12.0 (12.0-16.0) g/dL Hct 35.9 L (36-46) % MCV 88.1 (80-100) fL MCH 29.4 (26-34) PG MCHC 33.4 (30-36) % RDW 13.8 (11.6-14.8) % Plt Count 338 (150-400) X10^3/uL Neut % (Auto) 72.8 (50-75) % Lymph % (Auto) 17.4 L (25-40) % [place] % (Auto) 7.8 (3-14) % Eos % (Auto) 1.4 L (2-4) % Baso % (Auto) 0.6 (0-2) % Neut # (Auto) 8800 H (4862-1351) /uL Sodium 140 (137-145) mmol/L Potassium 3.8 (3.4-5.1) mmol/L Chloride 100 (98-107) mmol/L Carbon Dioxide 27 (22-32) mmol/L BUN 6 L (7-17) mg/dL Creatinine 0.50 L (0.52-1.04) mg/dL Estimated GFR > 60.0 (>60) mL/min BUN/Creatinine Ratio 12.0 (6-22) Glucose 87 (70-100) mg/dL Calcium 8.5 (8.4-10.2) mg/dL Total Bilirubin 0.5 (0.2-1.3) mg/dL AST 43 H (14-36) IU/L ALT 40 (9-52) IU/L Alkaline Phosphatase 88 (38-126) U/L Total Protein 6.9 (6.3-8.2) g/dL Albumin 3.9 (3.5-5.0) g/dL Globulin 3.0 (1.7-4.1) g/dL Albumin/Globulin Ratio 1.3 (1.0-2.8) Imaging Data upper ext US b/l: Radiologist's impression: right upper extremity has a 3.9 x 1.5 x 4.1 cm complex mixed echo focus with increased vascularity may represent earlier forming abscess or phlegmon. Left forearm shows a 5.5 x 2.5 x 4.4 cm mixed echo focus in the antecubital fossa with increased vascularity may representing early or forming abscess. MDM Narrative Medical decision making narrative: Patient started on vancomycin here in the emergency department. Ultrasound was ordered as the abscesses appear over the area of the brachial artery and when she do an incision and drainage if she has a blood vessel through the abscess. Patient has not had fever, no signs of sepsis at this time. WBC is 12. Patient has bilateral abscess with surrounding cellulitis but not extensive. Plan for recheck in 6-8 hours and will re-assess regarding continued IV abx and/or further treatment of abscess. Culture was sent. Patient given first dose of clindamycin to take this morning and rx for antibiotics and mobic sent to pharmacy. Discharge Plan Departure Patient Disposition: Home Clinical Impression: Abscess of multiple sites Instructions: DI for Skin Abscess Activity Restrictions/Additional Instructions: Return between 8 and 9:00 a.m. today for recheck and possible additional IV antibiotics. Wound Care: Keep wound(s) clean and dry. Wash daily with soap and water only. Do not use over the counter products (alcohol or peroxide)on the wounds unless instructed by a physician. If wound condition worsens (increased/expanding redness, developing fluid blisters, or worsening pain), either contact your doctor for an urgent re-assessment , or return to the Emergency Department. Return to the Emergency Department for any new or worsening symptoms. Return to the ED, urgent care, or vist a primary care doctor for removal packing removal. Return if fever greater than 100.4 Fahrenheit, increased swelling, increasing pain or worsening symptoms such as increased discharge or spreading redness. Use warm compresses 3 times daily for 20 minutes to the affected area. If there is packing in place do not pull it out, if it falls out do not try to replace it. return for rapidly increasing swelling, new numbness, weakness or inability to litigation services manager remove your arms, rapidly increasing pain or other new or concerning symptoms. Prescriptions: New clindamycin HCl 300 mg capsule 300 mg PO QID Qty: 40 RF: 0 meloxicam [Mobic] 7.5 mg tablet 7.5 mg PO BID Qty: 10 RF: 0 No Action sertraline [Zoloft] 100 MG tablet 150 mg PO Q DAY Qty: 45 RF: 3
--- NOTE | 2018-03-23 22:12 | ED_ITS ---
HPI - Skin/Abscess/Foreign Bdy General Chief complaint: Skin/Abscess/Foreign Body Stated complaint: STATES ABSCESSES ON BOTH ARMS Time Seen by Provider: 03/23/18 21:58 Source: patient Mode of arrival: ambulatory Limitations: no limitations History of Present Illness HPI narrative: This is a 32-year-old female comes to the emergency department with complaint of abscesses in her bilateral upper extremities. Patient states that she injected about 4 5 days ago on both sides. She started having swelling signs of infection. She may have had some fevers, she has had some nausea and vomiting. No chest pain, no shortness of breath. No new GI or urinary symptoms. She is having quite a bit of pain in her upper extremities and in the area of the swelling. No numbness or tingling, no weakness or difficulty with group care worker. She denies any other medical history. She denies any prior surgeries. She has an allergy to sulfa antibiotics. Related Data Previous Rx's Medication Instructions Recorded sertraline [Zoloft] 150 mg PO Q DAY #45 tab 06/12/16 clindamycin HCl 300 mg PO QID #40 cap 03/24/18 meloxicam [Mobic] 7.5 mg PO BID #10 tab 03/24/18 Allergies Allergy/AdvReac Type Severity Reaction Status Date / Time Sulfa (Sulfonamide Allergy Verified 03/23/18 17:00 Antibiotics) Review of Systems Review of Systems All systems reviewed & are unremarkable except as noted in HPI and below Constitutional Reports chills, Denies fever(s) and Denies weakness Cardiovascular Denies chest pain and Denies dyspnea Respiratory Denies dyspnea Gastrointestinal Gastrointestinal: Denies abdominal pain, Reports nausea and Reports vomiting Genitourinary Denies urinary frequency Musculoskeletal Denies tingling Integumentary/Breasts Reports erythema, Reports skin swelling and Reports wounds Neurologic Denies focal weakness, Denies tingling and Denies weakness ON LICENSE OF [facility] Medical History Drug abuse (Acute) Surgical History No pertinent past surgical history (Acute) Social History Smoking Status: Current every day smoker Exam Narrative Exam Narrative: GENERAL: Alert and oriented x three, Obese, well-appearing female in moderate distress. HEENT: Head normocephalic, atraumatic, EOMI, pupils reactive, face symmetric, moist mucous membranes NECK: Supple, full range of motion CARDIOVASCULAR: Regular rate and rhythm without murmurs, rubs or gallops. RESPIRATORY: Breath sounds equal bilaterally, no wheezes rales or rhonchi. ABDOMEN: Soft, nontender. Normoactive bowel sounds all 4 quadrants. No guarding or rebound, rigidity, no mass : No CVA tenderness EXTREMITIES: Normal range of motion, no clubbing, Patient has a a large abscess on both the right and left inner elbow, Um over the area where her brachial artery would be. It is erythematous, both or fluctuant, the Um left has some skin breakdown adjacent, there is no circumferential erythema but it is extending about 4 5 cm out. Um on the right patient has a small area of 4 cm , there is fluctuance also over the area where the brachial artery would be.. Neurovascularly intact. Patient has 2+ radial pulses bilaterally. She has full range of motion although she does not wish to flex and bend her elbows. NEUROLOGICAL: Cranial nerves II through XII grossly intact. Moving all extremities SKIN: Warm, dry, no petechiae, no rashes or lesions. Initial Vital Signs Initial Vital Signs: Vital Signs Temperature 98.7 F 03/23/18 16:57 Pulse Rate 111 H 03/23/18 16:57 Respiratory Rate 20 03/23/18 16:57 Blood Pressure 121/82 03/23/18 16:57 Pulse Oximetry 99 03/23/18 16:57 Procedures Abscess I/D Site: upper extremity (left forearm) Side (if applicable): left Local Anesthetic: lidocaine 1% Amount of anesthesia used (mL): 6 Technique: incised with #11 blade Amount of fluid expressed (mL): 15 Packing used?: iodoform [facility] [place] Procedure Name of Procedure: I and D #2. right forearm/elbow. Area was prepped. 4 cc of lidocaine was injected into the site. No blood was aspirated prior to injection. Abscess was incised with a[11] blade. There was moderate purulent drainage. Area was probed to break up loculations, abscess was packed with iodoform cultures were obtained. Hemostasis was achieved. Course Orders Ordered: ED Orders 03/23/18 20:50 Complete Blood Count AUTO DIFF Stat Comprehensive Metabolic Panel Stat 03/23/18 22:08 US extremity nonvasc upper lt Stat US extremity nonvasc upper rt Stat 03/24/18 02:44 Abscess Culture Stat Discontinued Medications Clindamycin HCl (Cleocin) 300 mg PO NOW ONE Stop: 03/24/18 01:56 Last Admin: 03/24/18 02:03 Dose: 300 mg Diphtheria/Tetanus/Acell Pertussis (Adacel) 0.5 ml IM .ONCE ONE Stop: 03/24/18 01:56 Last Admin: 03/24/18 02:03 Dose: 0.5 ml Hydromorphone HCl (Dilaudid) 1 mg IV NOW ONE Stop: 03/23/18 22:08 Last Admin: 03/23/18 22:36 Dose: 1 mg Hydromorphone HCl (Dilaudid) 1 mg IV NOW ONE Stop: 03/24/18 00:11 Last Admin: 03/24/18 00:26 Dose: 1 mg Hydromorphone HCl (Dilaudid) 1 mg IV NOW ONE Stop: 03/24/18 01:56 Last Admin: 03/24/18 02:03 Dose: 1 mg Vancomycin HCl 1,500 mg/ (Sodium Chloride) 500 mls @ 333.333 mls/hr IV NOW ONE Stop: 03/23/18 22:08 Last Infusion: 03/24/18 00:47 Dose: 0 mls/hr Admin: 03/23/18 22:36 Dose: 333.333 mls/hr Vital Signs - 8 hr 03/23/18 22:57 03/23/18 23:12 Temperature 98.4 F Pulse Rate 86 Respiratory Rate 20 Blood Pressure [Right Arm] 108/65 Pulse Oximetry 96 MDM - Skin/Abscess/Foreign Bdy Lab Data Result diagrams: 03/23/18 20:50 03/23/18 20:50 Lab Results 03/23/18 03/23/18 Range/Units 20:50 20:50 WBC 12.0 H (4.5-11.0) X10^3/uL RBC 4.08 (4.0-5.2) X10^6/uL Hgb 12.0 (12.0-16.0) g/dL Hct 35.9 L (36-46) % MCV 88.1 (80-100) fL MCH 29.4 (26-34) PG MCHC 33.4 (30-36) % RDW 13.8 (11.6-14.8) % Plt Count 338 (150-400) X10^3/uL Neut % (Auto) 72.8 (50-75) % Lymph % (Auto) 17.4 L (25-40) % [place] % (Auto) 7.8 (3-14) % Eos % (Auto) 1.4 L (2-4) % Baso % (Auto) 0.6 (0-2) % Neut # (Auto) 8800 H (6110-1399) /uL Sodium 140 (137-145) mmol/L Potassium 3.8 (3.4-5.1) mmol/L Chloride 100 (98-107) mmol/L Carbon Dioxide 27 (22-32) mmol/L BUN 6 L (7-17) mg/dL Creatinine 0.50 L (0.52-1.04) mg/dL Estimated GFR > 60.0 (>60) mL/min BUN/Creatinine Ratio 12.0 (6-22) Glucose 87 (70-100) mg/dL Calcium 8.5 (8.4-10.2) mg/dL Total Bilirubin 0.5 (0.2-1.3) mg/dL AST 43 H (14-36) IU/L ALT 40 (9-52) IU/L Alkaline Phosphatase 88 (38-126) U/L Total Protein 6.9 (6.3-8.2) g/dL Albumin 3.9 (3.5-5.0) g/dL Globulin 3.0 (1.7-4.1) g/dL Albumin/Globulin Ratio 1.3 (1.0-2.8) Imaging Data upper ext US b/l: Radiologist's impression: right upper extremity has a 3.9 x 1.5 x 4.1 cm complex mixed echo focus with increased vascularity may represent earlier forming abscess or phlegmon. Left forearm shows a 5.5 x 2.5 x 4.4 cm mixed echo focus in the antecubital fossa with increased vascularity may representing early or forming abscess. MDM Narrative Medical decision making narrative: Patient started on vancomycin here in the emergency department. Ultrasound was ordered as the abscesses appear over the area of the brachial artery and when she do an incision and drainage if she has a blood vessel through the abscess. Patient has not had fever, no signs of sepsis at this time. WBC is 12. Patient has bilateral abscess with surrounding cellulitis but not extensive. Plan for recheck in 6-8 hours and will re-assess regarding continued IV abx and/or further treatment of abscess. Culture was sent. Patient given first dose of clindamycin to take this morning and rx for antibiotics and mobic sent to pharmacy. Discharge Plan Departure Patient Disposition: Home Clinical Impression: Abscess of multiple sites Instructions: DI for Skin Abscess Activity Restrictions/Additional Instructions: Return between 8 and 9:00 a.m. today for recheck and possible additional IV antibiotics. Wound Care: Keep wound(s) clean and dry. Wash daily with soap and water only. Do not use over the counter products (alcohol or peroxide)on the wounds unless instructed by a physician. If wound condition worsens (increased/expanding redness, developing fluid blisters, or worsening pain), either contact your doctor for an urgent re- assessment , or return to the Emergency Department. Return to the Emergency Department for any new or worsening symptoms. Return to the ED, urgent care, or vist a primary care doctor for removal packing removal. Return if fever greater than 100.4 Fahrenheit, increased swelling, increasing pain or worsening symptoms such as increased discharge or spreading redness. Use warm compresses 3 times daily for 20 minutes to the affected area. If there is packing in place do not pull it out, if it falls out do not try to replace it. return for rapidly increasing swelling, new numbness, weakness or inability to group care worker remove your arms, rapidly increasing pain or other new or concerning symptoms. Prescriptions: New clindamycin HCl 300 mg capsule 300 mg PO QID Qty: 40 RF: 0 meloxicam [Mobic] 7.5 mg tablet 7.5 mg PO BID Qty: 10 RF: 0 No Action sertraline [Zoloft] 100 MG tablet 150 mg PO Q DAY Qty: 45 RF: 3
[2018-03-23] MEDS: VANCOMYCIN 1,500 MG in SODIUM CHLORIDE 0.9% 500 ML 333.333 ML IV (22:36)
[2018-03-23] MEDS: HYDROMORPHONE 1 MG INJ IV (22:36)
[2018-03-23 22:57] VITALS: PULSE 86; RESP 20; O2SAT 96
--- NOTE | 2018-03-23 23:03 | PC.NURSE ---
bilat AC/forearm pain/redness/swelling r/t recent IV heroin use, reports worsening over 5 days with chills, body aches, distal cms intact to bilat upper ext with strong radial pulses, multiple healing scabs to both arms
[2018-03-23 23:12] VITALS: BP 108/65; TEMP 36.9
[2018-03-24] MEDS: HYDROMORPHONE 1 MG INJ IV ×2 (00:26→02:03)
[2018-03-24] MEDS: CLINDAMYCIN 150 MG CAPSULE 300 MG PO (02:03)
[2018-03-24] MEDS: TET,DIPH,PERTUSS(ACELL),VAC/PF 0.5 ML SYRINGE IM (02:03)
[2018-03-24 03:01] VITALS: BP 118/79; PULSE 80; RESP 18; TEMP 36.6; O2SAT 97
--- NOTE | 2018-03-24 03:04 | PC.NURSE ---
DR Hua performed I&d on both left and right arm abscesses with packing after.DR hua appled 4by 4 dressing with kerlix then coban to sites.
== END 2018-03-24 02:25 | disposition home or self-care (01) ==
PROVIDERS: Nurse Practitioner Family; Emergency Provider Emergency Medicine
DX: L02.91 Cutaneous abscess, unspecified (principal)
CPT/HCPCS: 10061; 76882; 80053; 85025; 87070; 87075; 87077; 87147; 87186; 87205; 90471; 96365; 96366; 96375; 96376; 99283; 99284; 90715; J1170

== ENCOUNTER 2018-04-06 10:38 | Emergency (ER) | payer OTHER, MEDICAID, SELFPAY ==
[2018-04-06 10:51] VITALS: BP 158/100; PULSE 100; RESP 14; TEMP 37.7; O2SAT 100
[2018-04-06 11:19] VITALS: BP 119/76; PULSE 90
[2018-04-06 11:24] LABS: Bacteria Urine None Seen
[2018-04-06 11:27] LABS: Appearance Urine UA CLOUDY; Bilirubin Urine UA NEGATIVE (NEGATIVE); Color Urine UA YELLOW; Glucose Urine UA NEGATIVE (Normal); Ketones Urine UA NEGATIVE (NEGATIVE); Leukocyte Esterase Urine UA 3+ (NEGATIVE); Nitrite Urine UA POSITIVE (Negative); Occult Blood Urine UA 1+ (Negative); Protein Urine UA 2+ (Negative); Urobilinogen Urine UA 0.2 E.U./dL (0.2)
[2018-04-06 11:34] LABS: Culture Indicated Urine Specimen Cultured; RBC Urine 5-10/HPF (0-5/HPF); Squamous Epithelial Cell Urine 0-1 /HPF; WBC Urine 30-100/HPF (0-5/HPF)
--- NOTE | 2018-04-06 11:34 | ED.FEMALEGU ---
HPI - Female Genitourinary General Chief complaint: Urogenital-Female Stated complaint: Back Pain Time Seen by Provider: 04/06/18 11:30 Source: EMS Mode of arrival: ambulatory Limitations: no limitations History of Present Illness HPI Narrative: Patient is a 33-year-old female who has a history of pyelonephritis. She is currently complaining of right flank pain. She thinks this started yesterday. She does admit to using heroin yesterday but none today. She does not think she has had a fever but she has low-grade here. She was seen here recently for right elbow abscess after heroin use she was put on clindamycin at that time MD Complaint: dysuria Related Data Home Medications Medication Instructions Recorded Confirmed sertraline [Zoloft] 150 mg PO QAM 04/06/18 04/06/18 Previous Rx's Medication Instructions Recorded nitrofurantoin monohyd/m-cryst 100 mg PO BID #14 cap 04/06/18 [Macrobid] Allergies Allergy/AdvReac Type Severity Reaction Status Date / Time Sulfa (Sulfonamide Allergy Verified 03/23/18 17:00 Antibiotics) Review of Systems Review of Systems GENERAL: Denies chills, fatigue, malaise, fever, sweats, travel HEENT: Denies sinus pain, ear pain, sore throat, difficulty swallowing, neck pain RESPIRATORY: Denies dyspnea, cough, wheezing, hemoptysis, sputum. CARDIOVASCULAR: Denies chest pain, palpitations, orthopnea, edema GASTROINTESTINAL: Denies nausea, vomiting, abdominal pain, diarrhea, constipation, melena. : Right flank pain MUSCULOSKELETAL: Denies weakness, joint pain, or bony pain SKIN: No rash, no erythema, no pruritus NEUROLOGIC: Denies weakness, dizziness, headache, numbness, change in speech, confusion PSYCHIATRIC: Substance abuse 12 point review of systems is negative except for those stated above and HPI PFSH Social History Smoking Status: Current every day smoker Exam Initial Vital Signs Initial Vital Signs: Vital Signs Temperature 100 F H 04/06/18 10:51 Pulse Rate 100 H 04/06/18 10:51 Respiratory Rate 14 04/06/18 10:51 Blood Pressure 158/100 H 04/06/18 10:51 Pulse Oximetry 100 04/06/18 10:51 GENERAL: Crying anxious curledon left side HEENT: Head atraumatic,EOMI, pupils reactive, face symmetric, [moist] mucous membranes CARDIOVASCULAR: Regular rate and rhythm without murmurs, rubs or gallops. RESPIRATORY: Breath sounds equal bilaterally, no wheezes rales or rhonchi. ABDOMEN: Soft, nontender. No right lower quadrant pain Normoactive bowel sounds all 4 quadrants. No guarding or rebound. : Right CVA tenderness with minimal palpation EXTREMITIES: Normal range of motion, no clubbing or edema. Neurovascularly intact NEUROLOGICAL: Alert and oriented x4.Normal gait and speech. Cranial nerves II through XII grossly intact. SKIN: Healing abscess other track mahoney noted no new abscesses Course Orders Ordered: ED Orders 04/06/18 11:10 Urinalysis and Microscopic Stat Urine Culture Stat 04/06/18 11:25 Basic Metabolic Panel Stat Complete Blood Count AUTO DIFF Stat Discontinued Medications Sodium Chloride (Normal Saline 0.9%) 1,000 mls @ 1,000 mls/hr IV BOLUS ONE Stop: 04/06/18 12:29 Last Infusion: 04/06/18 13:03 Dose: 0 mls/hr Admin: 04/06/18 12:01 Dose: 1,000 mls/hr Ketorolac Tromethamine (Toradol) 30 mg IV NOW ONE Stop: 04/06/18 11:31 Last Admin: 04/06/18 12:00 Dose: 30 mg Ondansetron HCl (Zofran) 4 mg IV NOW ONE Stop: 04/06/18 11:31 Last Admin: 04/06/18 12:00 Dose: 4 mg Vital Signs - 8 hr 04/06/18 10:51 04/06/18 11:19 04/06/18 12:31 Temperature 100 F H Pulse Rate 100 H 90 94 H Respiratory Rate 14 18 Blood Pressure 158/100 H Blood Pressure [Right Arm] 119/76 95/60 Pulse Oximetry 100 96 04/06/18 13:17 Temperature Pulse Rate 91 H Respiratory Rate 20 Blood Pressure 114/64 Blood Pressure [Right Arm] Pulse Oximetry 97 MDM - Female Genitourinary Lab Data Result diagrams: 04/06/18 11:25 04/06/18 11:25 Lab Results 04/06/18 04/06/18 04/06/18 Range/Units 11:10 11:25 11:25 WBC 14.3 H (4.5-11.0) X10^3/uL RBC 4.71 (4.0-5.2) X10^6/uL Hgb 13.7 (12.0-16.0) g/dL Hct 40.5 (36-46) % MCV 86.0 (80-100) fL MCH 29.0 (26-34) PG MCHC 33.8 (30-36) % RDW 14.4 (11.6-14.8) % Plt Count 273 (150-400) X10^3/uL Neut % (Auto) 88.6 H (50-75) % Lymph % (Auto) 5.9 L (25-40) % [place] % (Auto) 4.9 (3-14) % Eos % (Auto) 0.2 L (2-4) % Baso % (Auto) 0.4 (0-2) % Neut # (Auto) 13703 H (2330-9487) /uL Sodium 141 (137-145) mmol/L Potassium 4.5 (3.4-5.1) mmol/L Chloride 104 (98-107) mmol/L Carbon Dioxide 22 (22-32) mmol/L BUN 10 (7-17) mg/dL Creatinine 0.60 (0.52-1.04) mg/dL Estimated GFR > 60.0 (>60) mL/min BUN/Creatinine Ratio 16.7 (6-22) Glucose 100 (70-100) mg/dL Calcium 9.3 (8.4-10.2) mg/dL Urine Color Yellow Urine Appearance Cloudy Urine pH 6.0 (4.5-8.0) Ur Specific [place] 1.010 (1.000-1.035) Urine Protein 2+ H (Negative) Urine Glucose (UA) Negative (Normal) g/dL Urine Ketones Negative (NEGATIVE) Urine Occult Blood 1+ H (Negative) Urine Nitrate Positive H (Negative) Urine Bilirubin Negative (NEGATIVE) Urine Urobilinogen 0.2 (0.2) E.U./dL Ur Leukocyte Esterase 3+ H (NEGATIVE) Urine RBC 5-10/hpf H (0-5/HPF) Urine WBC 30-100/hpf H (0-5/HPF) Ur Squamous Epith Cells 0-1 /hpf Urine Bacteria None seen (None) Ur Culture Indicated? Specimen cultured Micro UA Comment Not Reportable Point of Care Testing Test Results Negative MDM Narrative Medical decision making narrative: She does have leukocytosis with positive urine. Feeling much better after fluids and Toradol. Feels ready and able to go home. Previous cultures were sensitive to it Discharge Plan Departure Patient Disposition: Home Clinical Impression: UTI (urinary tract infection) Discharge Date/Time: 04/06/18 13:17 Interventions: ED Discharge Assessment Last Done: 04/06/18 13:17 Instructions: Kidney Infection Activity Restrictions/Additional Instructions: *You have been diagnosed with kidney infection *What to do: Increase fluid intake *Continue to take medications as directed: FAXED TO [facility] [place] [employer] Bactrim 1 tab twice a day for 7 days Motrin 800 mg every 8 hr if needed for pain *Follow up with your primary care provider in 2-3 days *Return to ER if you should have worsening pain, persistent fever inability to take antibiotics or any new, worsening or concerning symptoms Prescriptions: New nitrofurantoin monohyd/m-cryst [Macrobid] 100 mg capsule 100 mg PO BID Qty: 14 RF: 0 No Action sertraline [Zoloft] 100 MG tablet 150 mg PO QAM RF: 0
[2018-04-06 11:40] LABS: Add Manual Diff / Slide Review NO; Basophils Percent Auto 0.4 % (0-2); Eosinophils Percent Auto 0.2 % (2-4); Hematocrit 40.5 % (36-46); Hemoglobin 13.7 g/dL (12.0-16.0); Lymphocytes Percent Auto 5.9 % (25-40); Mean Corpuscular HGB Conc 33.8 % (30-36); Monocytes Percent Auto 4.9 % (3-14); Neutrophils Absolute Auto 12600 /uL (3000-5900); Neutrophils Percent Auto 88.6 % (50-75); Platelet Count 273 X10^3/uL (150-400); Red Blood Cell Count 4.71 X10^6/uL (4.0-5.2); Red Cell Distribution Width 14.4 % (11.6-14.8); White Blood Cell Count 14.3 X10^3/uL (4.5-11.0)
[2018-04-06 11:49] LABS: BUN Creatinine Ratio 16.7 (6-22); Blood Urea Nitrogen 10 mg/dL (7-17); Calcium 9.3 mg/dL (8.4-10.2); Carbon Dioxide 22 mmol/L (22-32); Chloride 104 mmol/L (98-107); Estimated Glomerular Filt Rate > 60.0 mL/min (>60); Glucose 100 mg/dL (70-100); Potassium 4.5 mmol/L (3.4-5.1); Sodium 141 mmol/L (137-145)
[2018-04-06 11:54] LABS: HEMOLYSIS 103 (0-50)
[2018-04-06] MEDS: ONDANSETRON 4 MG/2 ML INJ IV (12:00)
[2018-04-06] MEDS: KETOROLAC 60 MG/2 ML VIAL 30 MG IV (12:00)
[2018-04-06] MEDS: SODIUM CHLORIDE 0.9% 1,000 ML 1000 ML IV (12:01)
[2018-04-06 12:31] VITALS: BP 95/60; PULSE 94; RESP 18; O2SAT 96
[2018-04-06 13:17] VITALS: BP 114/64; PULSE 91; RESP 20; O2SAT 97
== END 2018-04-06 13:17 | disposition home or self-care (01) ==
PROVIDERS: Emergency Provider Emergency Medicine
DX: N39.0 Urinary tract infection, site not specified (principal)
CPT/HCPCS: 36591; 80048; 81001; 81025; 85025; 87077; 87086; 87186; 96361; 96374; 96375; 99283; 99284; J1885; J2405

== ENCOUNTER 2018-05-22 18:54 | Emergency (ER) | payer OTHER, MEDICAID, SELFPAY ==
[2018-05-22 19:26] VITALS: BP 112/75; PULSE 106; RESP 18
--- NOTE | 2018-05-22 19:49 | ED.FEMALEGU ---
HPI - Female Genitourinary <GALDINO Jason - Last Filed: 05/22/18 21:55> General Chief complaint: Urogenital-Female Stated complaint: states kidney infection Time Seen by Provider: 05/22/18 19:49 Source: patient Mode of arrival: ambulatory Limitations: no limitations History of Present Illness HPI Narrative: 33-year-old female with history of IV drug use is an everyday smoker here for complaint of flank pain and dysuria along with suprapubic pain over the past 3-4 days. She also reports having a fever. She says she thinks she has urinary tract infection. She denies any nausea vomiting. Positive p.o. intake. She reports that symptoms are similar to the other times she has had urinary tract infection/kidney infection. She denies any other concerns or complaints at this timeframe. Complaint: dysuria Related Data Home Medications Medication Instructions Recorded Confirmed sertraline [Zoloft] 150 mg PO QAM 04/06/18 04/06/18 Previous Rx's Medication Instructions Recorded nitrofurantoin monohyd/m-cryst 100 mg PO BID #14 cap 04/06/18 [Macrobid] acetaminophen 500 mg PO Q6H PRN #30 tab 05/22/18 ciprofloxacin HCl 500 mg PO BID #14 tab 05/22/18 Allergies Allergy/AdvReac Type Severity Reaction Status Date / Time Sulfa (Sulfonamide Allergy Verified 03/23/18 17:00 Antibiotics) Review of Systems <GALDINO Jason - Last Filed: 05/22/18 21:55> Constitutional Denies chills, Denies fever(s), Denies lethargy and Denies weakness Eyes Denies change in vision, Denies eye discharge, Denies irritation and Denies loss of vision ENT Ears, Nose, Mouth, and Throat: Denies change in voice, Denies neck pain and Denies sore throat Cardiovascular Denies chest pain, Denies irregular heart rhythm, Denies lightheadedness, Denies palpitations, Denies dyspnea, Denies dyspnea on exertion and Denies orthopnea Respiratory Denies cough, Denies dyspnea, Denies dyspnea on exertion and Denies wheezing Gastrointestinal Gastrointestinal: Denies abdominal pain, Denies change in bowel habits, Denies diarrhea, Denies nausea and Denies vomiting Genitourinary Denies hematuria, Reports dysuria, Reports flank pain, Denies urinary incontinence and Denies urinary urgency Musculoskeletal Denies neck pain Integumentary/Breasts Denies pruritus, Denies erythema, Denies rash and Denies wounds Neurologic Denies confusion, Denies loss of vision and Denies weakness Psychiatric Denies anxiety, Denies confusion, Denies depression, Denies homicidal ideation and Denies suicidal ideation Endocrine Denies palpitations Hematologic/Lymphatic Denies easy bruising Allergic/Immunologic Denies wheezing Exam <GALDINO Jason - Last Filed: 05/22/18 21:55> Initial Vital Signs Initial Vital Signs: Vital Signs Pulse Rate 106 H 05/22/18 19:26 Respiratory Rate 18 05/22/18 19:26 Blood Pressure 112/75 05/22/18 19:26 Const General: cooperative and well developed Nutritional Appearance: well nourished Orientation: alert, awake, oriented x3 and not confused HENMT Mouth: oral mucosae normal and moist mucous membranes Eyes General: appearance normal, both eyes and all related structures Eyelids: eyelids normal Conjunctivae: conjunctivae normal Sclera: sclerae normal Pupils: PERRL EOM: EOM intact bilaterally Resp Effort & Inspection: normal respiratory effort, able to speak in complete sentences, no respiratory distress and no use of accessory muscles Auscultation: clear to auscultation bilaterally, no rales, no rhonchi and no wheezes Cardio Rate: regular rate Rhythm: regular rhythm Heart Sounds: no click, no gallops, no murmurs and no rubs Pulses: normal peripheral pulses GI Inspection: non-distended Palpation: soft, no hepatosplenomegaly, No guarding, No pulsatile mass and tender (Tenderness of suprapubic region) Auscultation: normal bowel sounds General: CVA tenderness Skin General: no rashes or lesions noted, No jaundice and No petechiae Neuro General: alert, oriented x3, gait normal and no focal motor deficits Speech: speech normal <Arnav Schneider DO - Last Filed: 05/23/18 04:04> Initial Vital Signs Initial Vital Signs: Vital Signs Pulse Rate 106 H 05/22/18 19:26 Respiratory Rate 18 05/22/18 19:26 Blood Pressure 112/75 05/22/18 19:26 Course <GALDINO Jason - Last Filed: 05/22/18 21:55> Orders Ordered: ED Orders 05/22/18 19:35 Urine Culture Stat Urine Microscopic Stat Discontinued Medications Ceftriaxone Sodium (Rocephin) 1,000 mg IM NOW ONE Stop: 05/22/18 20:21 Last Admin: 05/22/18 20:35 Dose: 1,000 mg Ibuprofen (Advil) 800 mg PO NOW ONE Stop: 05/22/18 20:21 Last Admin: 05/22/18 20:34 Dose: 800 mg Vital Signs - 8 hr 05/22/18 20:22 05/22/18 21:04 Temperature 99.6 F 98.8 F Pulse Rate 90 Respiratory Rate 18 Blood Pressure 121/78 Pulse Oximetry 99 <Arnav Schneider DO - Last Filed: 05/23/18 04:04> Orders Ordered: ED Orders 05/22/18 19:35 Urine Culture Stat Urine Microscopic Stat Discontinued Medications Ceftriaxone Sodium (Rocephin) 1,000 mg IM NOW ONE Stop: 05/22/18 20:21 Last Admin: 05/22/18 20:35 Dose: 1,000 mg Ibuprofen (Advil) 800 mg PO NOW ONE Stop: 05/22/18 20:21 Last Admin: 05/22/18 20:34 Dose: 800 mg Vital Signs - 8 hr 05/22/18 20:22 05/22/18 21:04 Temperature 99.6 F 98.8 F Pulse Rate 90 Respiratory Rate 18 Blood Pressure 121/78 Pulse Oximetry 99 MDM - Female Genitourinary <GALDINO Jason - Last Filed: 05/22/18 21:55> Lab Data Lab Results 05/22/18 Range/Units 19:35 Urine RBC 5-10/hpf H (0-5/HPF) Urine WBC 10-30/hpf H (0-5/HPF) Amorphous Sediment 2+ Urine Bacteria Many (>30) H (None) Ur Culture Indicated? Specimen cultured Point of Care Testing Test Results Negative Urine Dip Bedside Urine Glucose Negative Bedside Urine Bilirubin - Negative Bedside Urine Ketone - Negative Urine Specific [place] 1.015 Bedside Urine Occult Blood ++ Bedside Urine pH 6.0 Bedside Urine Protein + 30 Bedside Urine Urobilinogen +/- 1mg Bedside Urine Nitrite + Positive Bedside Urine Leukocytes +++ 500 Esterase MDM Narrative Medical decision making narrative: Urinalysis indicates urinary tract infection/pyelonephritis. She was given Rocephin IM in the emergency room. She is placed on ciprofloxacin. [id number] ibuprofen as needed for any discomfort. Plenty of fluids. Follow up with primary care provider. Return emergency room for any worsening symptoms. <Arnav Schneider DO - Last Filed: 05/23/18 04:04> Lab Data Lab Results 05/22/18 Range/Units 19:35 Urine RBC 5-10/hpf H (0-5/HPF) Urine WBC 10-30/hpf H (0-5/HPF) Amorphous Sediment 2+ Urine Bacteria Many (>30) H (None) Ur Culture Indicated? Specimen cultured Point of Care Testing Test Results Negative Urine Dip Bedside Urine Glucose Negative Bedside Urine Bilirubin - Negative Bedside Urine Ketone - Negative Urine Specific [place] 1.015 Bedside Urine Occult Blood ++ Bedside Urine pH 6.0 Bedside Urine Protein + 30 Bedside Urine Urobilinogen +/- 1mg Bedside Urine Nitrite + Positive Bedside Urine Leukocytes +++ 500 Esterase Discharge Plan Departure Patient Disposition: Home Clinical Impression: Pyelonephritis, Obsessive-compulsive disorder Discharge Date/Time: 05/22/18 21:06 Interventions: ED Discharge Assessment Last Done: 05/22/18 21:04 Instructions: DI for Kidney Infection Activity Restrictions/Additional Instructions: Signs and symptoms presents as urinary tract infection/kidney infection. You are placed on antibiotics use as directed. [id number] Tylenol or Motrin as needed for any discomfort. Follow up with her primary care provider in the next couple days for re-evaluation. For any worsening symptoms return to the emergency room. Plenty of fluids. Prescriptions: New ciprofloxacin HCl 500 mg tablet 500 mg PO BID Qty: 14 RF: 0 acetaminophen 500 mg tablet 500 mg PO Q6H PRN (Reason: pain) Qty: 30 RF: 0 No Action sertraline [Zoloft] 100 MG tablet 150 mg PO QAM RF: 0 nitrofurantoin monohyd/m-cryst [Macrobid] 100 mg capsule 100 mg PO BID Qty: 14 RF: 0 Referrals: [facility] [Provider Group] <Arnav Schneider DO - Last Filed: 05/23/18 04:04> Cosign ED Attending Javi Attestation: I was immediately available in the department for consultation. Documentation has been reviewed. I agree with assessment and plan.
[2018-05-22 19:59] LABS: RBC Urine 5-10/HPF (0-5/HPF); WBC Urine 10-30/HPF (0-5/HPF)
[2018-05-22 20:00] LABS: Amorphous Sediment Urine 2+; Bacteria Urine Many (>30); Culture Indicated Urine Specimen Cultured
--- NOTE | 2018-05-22 20:08 | PC.NURSE ---
Pt requesting pain medication, provider notified, Provider stated I will get in to see her now
[2018-05-22 20:22] VITALS: TEMP 37.6
[2018-05-22] MEDS: IBUPROFEN 400 MG TABLET 800 MG PO (20:34)
[2018-05-22] MEDS: cefTRIAXone 2,000 MG VIAL 1000 MG IM (20:35)
--- NOTE | 2018-05-22 20:36 | PC.NURSE ---
gabe HOLLINS from [facility] 1000mg. Verified with Jennifer COLLINS.
[2018-05-22 21:04] VITALS: BP 121/78; PULSE 90; RESP 18; TEMP 37.1; O2SAT 99
--- NOTE | 2018-05-23 20:39 | PC.NURSE ---
Pt called in to check culture results and appropriateness of abx. Per pelp and lanm abx is appropriate for gram neg bacilli bacteria.
== END 2018-05-22 21:06 | disposition home or self-care (01) ==
PROVIDERS: Emergency Medicine; Emergency Provider Nurse Practitioner Family
DX: N12 Tubulo-interstitial nephritis, not specified as acute or chronic (principal)
CPT/HCPCS: 81003; 81015; 81025; 87077; 87086; 87186; 96372; 99282; 99283; J0696

== ENCOUNTER 2018-07-06 05:23 | Emergency (ER) | payer OTHER, MEDICAID, SELFPAY ==
[2018-07-06 05:32] VITALS: BP 139/98; PULSE 91; RESP 18; TEMP 36.4; O2SAT 98
[2018-07-06] MEDS: DOXYCYCLINE HYCLATE 100 MG TABLET PO (05:42)
--- NOTE | 2018-07-06 05:57 | ED.SKABFB ---
HPI - Skin/Abscess/Foreign Bdy General Chief complaint: Skin/Abscess/Foreign Body Stated complaint: SWELLING, LUMP LEFT ARMPIT Time Seen by Provider: 07/06/18 05:25 Source: patient Mode of arrival: ambulatory Limitations: no limitations History of Present Illness HPI narrative: 33-year-old female smoker, drinker and IV drug abuser of heroin presents with a painful bump in her left axilla for the past week or so. She's had no systemic findings such as fever, chills, N/V or other. She did not inject in her axilla. She's had skin infections before, but never in her axilla. She is otherwise well and free of complaint. MD complaint: abscess/boil Onset (ago): day(s) Tetanus up to date: yes Location: LUE Severity: mild Quality: burning and aching Pain Consistency: constant Relieving factors: none Exacerbating factors: movement Context: none Treatments prior to arrival: none Related Data Home Medications Medication Instructions Recorded Confirmed sertraline [Zoloft] 150 mg PO QAM 04/06/18 04/06/18 Previous Rx's Medication Instructions Recorded nitrofurantoin monohyd/m-cryst 100 mg PO BID #14 cap 04/06/18 [Macrobid] acetaminophen 500 mg PO Q6H PRN #30 tab 05/22/18 ciprofloxacin HCl 500 mg PO BID #14 tab 05/22/18 doxycycline hyclate 100 mg PO BID #20 tab 07/06/18 Allergies Allergy/AdvReac Type Severity Reaction Status Date / Time Sulfa (Sulfonamide Allergy Verified 03/23/18 17:00 Antibiotics) Review of Systems Constitutional Denies chills, Denies fever(s), Denies lethargy and Denies weakness Eyes Denies change in vision, Denies eye discharge, Denies irritation and Denies loss of vision ENT Ears, Nose, Mouth, and Throat: Denies change in voice, Denies neck pain and Denies sore throat Cardiovascular Denies chest pain, Denies irregular heart rhythm, Denies lightheadedness, Denies palpitations, Denies dyspnea, Denies dyspnea on exertion and Denies orthopnea Respiratory Denies cough, Denies dyspnea, Denies dyspnea on exertion and Denies wheezing Gastrointestinal Gastrointestinal: Denies abdominal pain, Denies change in bowel habits, Denies diarrhea, Denies nausea and Denies vomiting Genitourinary Denies hematuria, Denies flank pain, Denies urinary incontinence and Denies urinary urgency Musculoskeletal Denies neck pain Integumentary/Breasts Denies pruritus, Reports erythema, Denies rash, Reports skin pain, Reports skin swelling and Denies wounds Neurologic Denies confusion, Denies loss of vision and Denies weakness Psychiatric Denies anxiety, Denies confusion, Denies depression, Denies homicidal ideation and Denies suicidal ideation Endocrine Denies palpitations Hematologic/Lymphatic Denies easy bruising Allergic/Immunologic Denies wheezing [facility] Medical History Drug abuse (Acute) Surgical History No pertinent past surgical history (Acute) Social History Smoking Status: Current every day smoker Social History Smoking Status: Current every day smoker Exam Narrative Exam Narrative: GEN: AOx3 and in mild distress EYES: Pupils are equal, round, and reactive to light and accommodation. Extraoccular muscles are intact bilaterally. There is no subconjunctival hemorrhage or exudate. CHEST: Lungs are clear to auscultation bilaterally and free of wheezes, rales, or rhonchi. Heart rate is regular rhythm, there are no murmurs, clicks, rubs, or gallops. There is no chest wall tenderness. ABD: Abdomen is soft and nontender. There is no guarding or rebound. Bowel sounds are normal in all 4 quadrants. There is no mass or organomegaly. EXT: Full painless ROM of all extremities with no loss of sensation or strength. SKIN: Very small tender injury rated erythematous lesion in left axilla perhaps 1 cm across minimal fluctuance. Initial Vital Signs Initial Vital Signs: Vital Signs Temperature 97.6 F 07/06/18 05:32 Pulse Rate 91 H 07/06/18 05:32 Respiratory Rate 18 07/06/18 05:32 Blood Pressure 139/98 H 07/06/18 05:32 Pulse Oximetry 98 07/06/18 05:32 Procedures Abscess I/D Site: upper extremity Side (if applicable): left Local Anesthetic: lidocaine 1% and with bicarb Amount of anesthesia used (mL): 3 Technique: needle aspiration Amount of fluid expressed (mL): 2 Irrigation: No Packing used?: none Course Orders Ordered: Discontinued Medications Doxycycline Hyclate (Vibramycin) 100 mg PO NOW ONE Stop: 07/06/18 05:37 Last Admin: 07/06/18 05:42 Dose: 100 mg Vital Signs - 8 hr 07/06/18 05:32 Temperature 97.6 F Pulse Rate 91 H Respiratory Rate 18 Blood Pressure 139/98 H Pulse Oximetry 98 Discharge Plan Departure Patient Disposition: Home Clinical Impression: Abscess of skin or subcutaneous tissue Qualifiers: Site of cutaneous abscess: extremity Site of cutaneous abscess of extremity: axilla Laterality: left Qualified Code(s): L02.412 - Cutaneous abscess of left axilla Instructions: DI for Skin Abscess Activity Restrictions/Additional Instructions: *You have been diagnosed with [ left axillary abscess ] *What to do: *Take medications as directed *Follow up with your primary care provider in 2-3 days, call for an appointment. Let them know you were seen in the Emergency Department and that we ask that you be seen in follow up *Return to ER if you should have any new, worsening or concerning symptoms Prescriptions: New doxycycline hyclate 100 mg tablet 100 mg PO BID Qty: 20 RF: 0 No Action sertraline [Zoloft] 100 MG tablet 150 mg PO QAM RF: 0 nitrofurantoin monohyd/m-cryst [Macrobid] 100 mg capsule 100 mg PO BID Qty: 14 RF: 0 ciprofloxacin HCl 500 mg tablet 500 mg PO BID Qty: 14 RF: 0 acetaminophen 500 mg tablet 500 mg PO Q6H PRN (Reason: pain) Qty: 30 RF: 0
== END 2018-07-06 06:08 | disposition home or self-care (01) ==
PROVIDERS: Emergency Provider Emergency Medicine
DX: L02.412 Cutaneous abscess of left axilla (principal)
CPT/HCPCS: 10060; 99282; 99283

== ENCOUNTER 2018-07-23 11:54 | Emergency (ER) | payer OTHER, MEDICAID, SELFPAY ==
[2018-07-23 12:18] VITALS: PULSE 79; RESP 17; TEMP 36.2; O2SAT 100; BMI 26.8
--- NOTE | 2018-07-23 14:56 | ED.SKABFB ---
HPI - Skin/Abscess/Foreign Bdy General Chief complaint: Skin/Abscess/Foreign Body Stated complaint: states Abcess arms bilat,fever Time Seen by Provider: 07/23/18 14:55 Source: patient Mode of arrival: ambulatory Limitations: no limitations History of Present Illness HPI narrative: this is a 33-year-old female comes to the emergency department with complaint of swelling/abscess on both arms. Patient states she has 1 over the left AC that feels sort of hard. She also has a bump over her left forearm. This also feels hard. They both been slightly increased in size and painful. She also has 1 on her right forearm that has been soft and painful. Patient states no fevers she has felt chilled occasionally. She denies any chest pain or shortness of breath. She has had a little nausea and vomiting. She denies any diarrhea or constipation. She denies any urinary symptoms. Patient has had similar symptoms in the past and had I and D's before. Her boyfriend was helping her shoot up and states that they missed. They states there have not been any broken needles. Related Data Home Medications Medication Instructions Recorded Confirmed sertraline [Zoloft] 150 mg PO QAM 04/06/18 04/06/18 buprenorphine-naloxone [Suboxone] 2 film SUBLINGUAL [id number] 07/23/18 07/23/18 Previous Rx's Medication Instructions Recorded acetaminophen 500 mg PO Q6H PRN #30 tab 05/22/18 doxycycline hyclate 100 mg PO BID #20 tab 07/06/18 clindamycin HCl 300 mg PO QID #40 cap 07/23/18 meloxicam [Mobic] 7.5 mg PO DAILY #10 tab 07/23/18 Allergies Allergy/AdvReac Type Severity Reaction Status Date / Time Sulfa (Sulfonamide Allergy Verified 03/23/18 17:00 Antibiotics) Review of Systems Review of Systems ROS Unobtainable: All systems reviewed & are unremarkable except as noted in HPI and below Constitutional Reports chills, Denies fever(s), Denies lethargy and Denies weakness Cardiovascular Denies chest pain, Denies edema, Denies dyspnea and Denies dyspnea on exertion Respiratory Denies dyspnea and Denies dyspnea on exertion Gastrointestinal Gastrointestinal: Denies abdominal pain, Denies change in bowel habits, Denies diarrhea, Reports nausea and Reports vomiting Musculoskeletal Denies arthralgias and Reports other ( Lumps, pain in both arms.) Integumentary/Breasts Reports as per HPI and Reports skin swelling Neurologic Denies focal weakness, Denies sensory deficit, Denies paresthesias and Denies weakness [facility] Medical History Drug abuse (Acute) Surgical History No pertinent past surgical history (Acute) Social History Smoking Status: Current every day smoker Social History Smoking Status: Current every day smoker alcohol intake: current substance use type: heroin and IV drugs Exam Narrative Exam Narrative: GENERAL: Alert and oriented x three, Well-nourished, well-appearing female in mild distress. HEENT: Head normocephalic, atraumatic, EOMI, pupils reactive, face symmetric, moist mucous membranes NECK: Supple, full range of motion CARDIOVASCULAR: Regular rate and rhythm without murmurs, rubs or gallops. RESPIRATORY: Breath sounds equal bilaterally, no wheezes rales or rhonchi. ABDOMEN: Soft, nontender. Normoactive bowel sounds all 4 quadrants. No guarding or rebound, rigidity, no mass : No CVA tenderness EXTREMITIES: Normal range of motion, no clubbing. Patient has a large area of fluctuance over the right flexor side of the forearm proximally. Patient does not have much erythema but it does feel fluctuant and tender. Patient has area of induration swelling over left AC as well. No fluctuance noted here. Patient also has a nodule on her extensor side of her left forearm approximately that is indurated with no fluctuance. This was about a cm in size. Patient has no redness or streaking other than in the left AC. She does have full range of motion equal travertine installer bilaterally. 2+ radial pulse bilaterally. Muscle strength is 5/5 in upper and lower extremities.. Neurovascularly intact NEUROLOGICAL: Cranial nerves II through XII grossly intact. Moving all extremities SKIN: Warm, dry, no petechiae, no rashes or lesions. Initial Vital Signs Initial Vital Signs: Vital Signs Temperature 97.2 F L 07/23/18 12:18 Pulse Rate 79 07/23/18 12:18 Respiratory Rate 17 07/23/18 12:18 Pulse Oximetry 100 07/23/18 12:18 Procedures Abscess I/D Site: upper extremity Side (if applicable): right Sedation/analgesia: other (Toradol IM) Local Anesthetic: lidocaine 1% Amount of anesthesia used (mL): 5 Technique: needle aspiration and incised with #11 blade Amount of fluid expressed (mL): 4.5 Irrigation: Yes Packing used?: iodoform Complications: bleeding (scant, bandage placed. Patient tolerated procedure well.) Course Orders Ordered: ED Orders 07/23/18 15:29 US extremity nonvasc upper lt Stat 07/23/18 19:30 Wound Culture and Gram Stain Stat Discontinued Medications Clindamycin HCl (Cleocin) 300 mg PO NOW ONE Stop: 07/23/18 17:59 Last Admin: 07/23/18 18:28 Dose: 300 mg Ketorolac Tromethamine (Toradol) 60 mg IM NOW ONE Stop: 07/23/18 15:14 Last Admin: 07/23/18 15:35 Dose: 60 mg Vital Signs - 8 hr 07/23/18 12:18 07/23/18 17:12 07/23/18 18:45 Temperature 97.2 F L Pulse Rate 79 60 63 Respiratory Rate 17 20 18 Blood Pressure [Left Wrist] 101/53 L Blood Pressure [Right Arm] 93/57 L Pulse Oximetry 100 97 100 MDM - Skin/Abscess/Foreign Bdy Imaging Data upper extremity US left: Radiologist's impression: [address] [address] Ultrasound Report Signed Patient: Macarena Banuelos [facility]#: [id number] : 1985Acct:[id number] Age/Sex: 33 / FDate of Service: 07/23/18 Loc: ED Accession Number: [id number] Procedure: US extremity nonvasc upper lt Ordering Provider: Katherin Hussein D.O. PROCEDURE: US EXTREMITY NONVASC UPPER LT INDICATIONS: ABSCESS OVER LEFT ANTECUBITAL FOSSA, VASCULAR INVOLVEMENT? TECHNIQUE: Real-time scanning was performed of the left antecubital fossa, with image documentation. COMPARISON: Merged with [facility], US EXTREMELY NONVASC UPPER RT, 03/23/2018, 23:33. Merged with [facility], US EXTREMITY NONVASC UPPER LT, 03/23/2018, 23:30. FINDINGS: There is a complex fluid collection at the left antecubital fossa in the area of current clinical concern, with associated adjacent hyperemia. This area measures up to 1.8 x 2.9 x 4.8 cm. There is an occluded antecubital vein immediately adjacent. IMPRESSION: Phlegmon measuring up to 4.8 x 1.8 x 2.9 cm left antecubital fossa with adjacent occluded left antecubital vein likely inflammatory in origin. A formed drainable abscess is not identified as a discrete liquid containing entity. Thick viscous abscess content conceivably could be present within this area, however. Dictated by: Lenin Walker M.D. on 07/23/2018 at 15:45 Approved by: Lenin Walker M.D. on 07/23/2018 at 15:47 MDM Narrative Medical decision making narrative: Patient has some ultrasound of the left upper extremity over the AC shows phlegmon with no clear fluid collection that could easily be drained. this area is 4.8 x 1.8 x 2.9 cm. There is also an adjacent occluded left antecubital vein likely inflammatory in her origin. I discussed this with Dr. Camacho per medical laboratory technician patient had good flow above and below but not at this site. He feels that trying to drain this would not be helpful at this time but does recommend antibiotics. He would not start patient on any blood thinners at this time as it is a localized thrombophlebitis. I discussed with patient we did do an I and D on her right upper extremity as that was soft and fluctuant and was easily drainable with purulent fluid. This was sent for culture. The patient was asked return tomorrow for re-evaluation recheck some and to continue with warm compresses as well as clindamycin orally. Discharge Plan Departure Patient Disposition: Home Clinical Impression: Abscess of multiple sites Discharge Date/Time: 07/23/18 18:53 Interventions: ED Discharge Assessment Last Done: 07/23/18 18:53 Instructions: DI for Skin Abscess Activity Restrictions/Additional Instructions: Return tomorrow for re-evaluation, return in the next 12-24 hours. Take antibiotics until they are completely gone. You may take pain medications once twice daily as needed. Wound Care: Keep wound(s) clean and dry. Wash daily with soap and water only. Do not use over the counter products (alcohol or peroxide)on the wounds unless instructed by a physician. If wound condition worsens (increased/expanding redness, developing fluid blisters, or worsening pain), either contact your doctor for an urgent re-assessment , or return to the Emergency Department. Return to the Emergency Department for any new or worsening symptoms. Return if fever greater than 100.4 Fahrenheit, increased swelling, increasing pain or worsening symptoms such as increased discharge or spreading redness. Use warm compresses 3 times daily for 20 minutes to the affected area. If there is packing in place do not pull it out, if it falls out do not try to replace it. Prescriptions: New clindamycin HCl 300 mg capsule 300 mg PO QID Qty: 40 RF: 0 meloxicam [Mobic] 7.5 mg tablet 7.5 mg PO DAILY Qty: 10 RF: 0 No Action doxycycline hyclate 100 mg tablet 100 mg PO BID Qty: 20 RF: 0 buprenorphine-naloxone [Suboxone] 8-2 mg film 2 film Sublingual [id number] RF: 0 sertraline [Zoloft] 100 MG tablet 150 mg PO QAM RF: 0 acetaminophen 500 mg tablet 500 mg PO Q6H PRN (Reason: pain) Qty: 30 RF: 0
--- NOTE | 2018-07-23 14:57 | CM.SWNOTE ---
PAPER GLUING OPERATOR Note Description: substance abuse/arm abscesses due to heroin use Activity: PAPER GLUING OPERATOR met with patient to assess immediate resource/support needs. Pt has several large, infected abscesses along both arms, appearing infected. Pt's boyfriend told ED fabrication and assembly supervisor that he knows that he has missed when injecting her with heroin. They have been long-time users. In meeting with pt, she presents as very tired, weak, and wanting to only minimally engage. PAPER GLUING OPERATOR offered to help her with assistance, resources or counseling. Pt decided that she did want information on substance abuse treatment/counseling. PAPER GLUING OPERATOR provided her the information for [facility], and explained that they also offer counseling and coordination assistance. PAPER GLUING OPERATOR further encouraged her to ask for me if she would like to talk some more while in the ED. No further needs indicated at this time.
--- NOTE | 2018-07-23 15:19 | ED_ITS ---
HPI - Skin/Abscess/Foreign Bdy General Chief complaint: Skin/Abscess/Foreign Body Stated complaint: states Abcess arms bilat,fever Time Seen by Provider: 07/23/18 14:55 Source: patient Mode of arrival: ambulatory Limitations: no limitations History of Present Illness HPI narrative: this is a 33-year-old female comes to the emergency department with complaint of swelling/abscess on both arms. Patient states she has 1 over the left AC that feels sort of hard. She also has a bump over her left forearm. This also feels hard. They both been slightly increased in size and painful. She also has 1 on her right forearm that has been soft and painful. Patient states no fevers she has felt chilled occasionally. She denies any chest pain or shortness of breath. She has had a little nausea and vomiting. She denies any diarrhea or constipation. She denies any urinary symptoms. Patient has had similar symptoms in the past and had I and D's before. Her boyfriend was helping her shoot up and states that they missed. They states there have not been any broken needles. Related Data Home Medications Medication Instructions Recorded Confirmed sertraline [Zoloft] 150 mg PO QAM 04/06/18 04/06/18 buprenorphine-naloxone [Suboxone] 2 film SUBLINGUAL DAILYX7 07/23/18 07/23/18 Previous Rx's Medication Instructions Recorded acetaminophen 500 mg PO Q6H PRN #30 tab 05/22/18 doxycycline hyclate 100 mg PO BID #20 tab 07/06/18 clindamycin HCl 300 mg PO QID #40 cap 07/23/18 meloxicam [Mobic] 7.5 mg PO DAILY #10 tab 07/23/18 Allergies Allergy/AdvReac Type Severity Reaction Status Date / Time Sulfa (Sulfonamide Allergy Verified 03/23/18 17:00 Antibiotics) Review of Systems Review of Systems ROS Unobtainable: All systems reviewed & are unremarkable except as noted in HPI and below Constitutional Reports chills, Denies fever(s), Denies lethargy and Denies weakness Cardiovascular Denies chest pain, Denies edema, Denies dyspnea and Denies dyspnea on exertion Respiratory Denies dyspnea and Denies dyspnea on exertion Gastrointestinal Gastrointestinal: Denies abdominal pain, Denies change in bowel habits, Denies diarrhea, Reports nausea and Reports vomiting Musculoskeletal Denies arthralgias and Reports other ( Lumps, pain in both arms.) Integumentary/Breasts Reports as per HPI and Reports skin swelling Neurologic Denies focal weakness, Denies sensory deficit, Denies paresthesias and Denies weakness [facility] Medical History Drug abuse (Acute) Surgical History No pertinent past surgical history (Acute) Social History Smoking Status: Current every day smoker Social History Smoking Status: Current every day smoker alcohol intake: current 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 HEENT: Head normocephalic, atraumatic, EOMI, pupils reactive, face symmetric, moist mucous membranes NECK: Supple, full range of motion CARDIOVASCULAR: Regular rate and rhythm without murmurs, rubs or gallops. RESPIRATORY: Breath sounds equal bilaterally, no wheezes rales or rhonchi. ABDOMEN: Soft, nontender. Normoactive bowel sounds all 4 quadrants. No guarding or rebound, rigidity, no mass : No CVA tenderness EXTREMITIES: Normal range of motion, no clubbing. Patient has a large area of fluctuance over the right flexor side of the forearm proximally. Patient does not have much erythema but it does feel fluctuant and tender. Patient has area of induration swelling over left AC as well. No fluctuance noted here. Patient also has a nodule on her extensor side of her left forearm approximately that is indurated with no fluctuance. This was about a cm in size. Patient has no redness or streaking other than in the left AC. She does have full range of motion equal extension course coordinator bilaterally. 2+ radial pulse bilaterally. Muscle strength is 5/5 in upper and lower extremities.. Neurovascularly intact NEUROLOGICAL: Cranial nerves II through XII grossly intact. Moving all extremities SKIN: Warm, dry, no petechiae, no rashes or lesions. Initial Vital Signs Initial Vital Signs: Vital Signs Temperature 97.2 F L 07/23/18 12:18 Pulse Rate 79 07/23/18 12:18 Respiratory Rate 17 07/23/18 12:18 Pulse Oximetry 100 07/23/18 12:18 Procedures Abscess I/D Site: upper extremity Side (if applicable): right Sedation/analgesia: other (Toradol IM) Local Anesthetic: lidocaine 1% Amount of anesthesia used (mL): 5 Technique: needle aspiration and incised with #11 blade Amount of fluid expressed (mL): 4.5 Irrigation: Yes Packing used?: iodoform Complications: bleeding (scant, bandage placed. Patient tolerated procedure well.) Course Orders Ordered: ED Orders 07/23/18 15:29 US extremity nonvasc upper lt Stat 07/23/18 19:30 Wound Culture and Gram Stain Stat Discontinued Medications Clindamycin HCl (Cleocin) 300 mg PO NOW ONE Stop: 07/23/18 17:59 Last Admin: 07/23/18 18:28 Dose: 300 mg Ketorolac Tromethamine (Toradol) 60 mg IM NOW ONE Stop: 07/23/18 15:14 Last Admin: 07/23/18 15:35 Dose: 60 mg Vital Signs - 8 hr 07/23/18 12:18 07/23/18 17:12 07/23/18 18:45 Temperature 97.2 F L Pulse Rate 79 60 63 Respiratory Rate 17 20 18 Blood Pressure [Left Wrist] 101/53 L Blood Pressure [Right Arm] 93/57 L Pulse Oximetry 100 97 100 MDM - Skin/Abscess/Foreign Bdy Imaging Data upper extremity US left: Radiologist's impression: [address] [address] Ultrasound Report Signed Patient: Macarena Banuelos [facility]#: [id number] : 1985Acct:[id number] Age/Sex: 33 / FDate of Service: 07/23/18 Loc: ED Accession Number: [id number] Procedure: US extremity nonvasc upper lt Ordering Provider: Katherin Hussein D.O. PROCEDURE: US EXTREMITY NONVASC UPPER LT INDICATIONS: ABSCESS OVER LEFT ANTECUBITAL FOSSA, VASCULAR INVOLVEMENT? TECHNIQUE: Real-time scanning was performed of the left antecubital fossa, with image documentation. COMPARISON: [facility], US EXTREMELY NONVASC UPPER RT, 03/23/2018, 23:33. [facility], US EXTREMITY NONVASC UPPER LT, 03/23/2018, 23:30. FINDINGS: There is a complex fluid collection at the left antecubital fossa in the area of current clinical concern, with associated adjacent hyperemia. This area measures up to 1.8 x 2.9 x 4.8 cm. There is an occluded antecubital vein immediately adjacent. IMPRESSION: Phlegmon measuring up to 4.8 x 1.8 x 2.9 cm left antecubital fossa with adjacent occluded left antecubital vein likely inflammatory in origin. A formed drainable abscess is not identified as a discrete liquid containing entity. Thick viscous abscess content conceivably could be present within this area, however. Dictated by: Lenin Walker M.D. on 07/23/2018 at 15:45 Approved by: Lenin Walker M.D. on 07/23/2018 at 15:47 MDM Narrative Medical decision making narrative: Patient has some ultrasound of the left upper extremity over the AC shows phlegmon with no clear fluid collection that could easily be drained. this area is 4.8 x 1.8 x 2.9 cm. There is also an adjacent occluded left antecubital vein likely inflammatory in her origin. I discussed this with Dr. Camacho per meter/relay technician patient had good flow above and below but not at this site. He feels that trying to drain this would not be helpful at this time but does recommend antibiotics. He would not start patient on any blood thinners at this time as it is a localized thrombophlebitis. I discussed with patient we did do an I and D on her right upper extremity as that was soft and fluctuant and was easily drainable with purulent fluid. This was sent for culture. The patient was asked return tomorrow for re-evaluation recheck some and to continue with warm compresses as well as clindamycin orally. Discharge Plan Departure Patient Disposition: Home Clinical Impression: Abscess of multiple sites Discharge Date/Time: 07/23/18 18:53 Interventions: ED Discharge Assessment Last Done: 07/23/18 18:53 Instructions: DI for Skin Abscess Activity Restrictions/Additional Instructions: Return tomorrow for re-evaluation, return in the next 12-24 hours. Take antibiotics until they are completely gone. You may take pain medications once twice daily as needed. Wound Care: Keep wound(s) clean and dry. Wash daily with soap and water only. Do not use over the counter products (alcohol or peroxide)on the wounds unless instructed by a physician. If wound condition worsens (increased/expanding redness, developing fluid blisters, or worsening pain), either contact your doctor for an urgent re- assessment , or return to the Emergency Department. Return to the Emergency Department for any new or worsening symptoms. Return if fever greater than 100.4 Fahrenheit, increased swelling, increasing pain or worsening symptoms such as increased discharge or spreading redness. Use warm compresses 3 times daily for 20 minutes to the affected area. If there is packing in place do not pull it out, if it falls out do not try to replace it. Prescriptions: New clindamycin HCl 300 mg capsule 300 mg PO QID Qty: 40 RF: 0 meloxicam [Mobic] 7.5 mg tablet 7.5 mg PO DAILY Qty: 10 RF: 0 No Action doxycycline hyclate 100 mg tablet 100 mg PO BID Qty: 20 RF: 0 buprenorphine-naloxone [Suboxone] 8-2 mg film 2 film Sublingual DAILYX7 RF: 0 sertraline [Zoloft] 100 MG tablet 150 mg PO QAM RF: 0 acetaminophen 500 mg tablet 500 mg PO Q6H PRN (Reason: pain) Qty: 30 RF: 0
--- NOTE | 2018-07-23 15:29 | DI.US.S_ITS ---
PROCEDURE: US EXTREMITY NONVASC UPPER LT INDICATIONS: ABSCESS OVER LEFT ANTECUBITAL FOSSA, VASCULAR INVOLVEMENT? TECHNIQUE: Real-time scanning was performed of the left antecubital fossa, with image documentation. COMPARISON: [facility], EXTREMELY NONVASC UPPER RT, 03/23/2018, 23:33. [facility], EXTREMITY NONVASC UPPER LT, 03/23/2018, 23:30. FINDINGS: There is a complex fluid collection at the left antecubital fossa in the area of current clinical concern, with associated adjacent hyperemia. This area measures up to 1.8 x 2.9 x 4.8 cm. There is an occluded antecubital vein immediately adjacent. IMPRESSION: Phlegmon measuring up to 4.8 x 1.8 x 2.9 cm left antecubital fossa with adjacent occluded left antecubital vein likely inflammatory in origin. A formed drainable abscess is not identified as a discrete liquid containing entity. Thick viscous abscess content conceivably could be present within this area, however. Dictated by: Lenin Walker M.D. on 07/23/2018 at 15:45 Approved by: Lenin Walker M.D. on 07/23/2018 at 15:47
[2018-07-23] MEDS: KETOROLAC 60 MG/2 ML VIAL IM (15:35)
[2018-07-23 17:12] VITALS: BP 93/57; PULSE 60; RESP 20; O2SAT 97
[2018-07-23] MEDS: CLINDAMYCIN 150 MG CAPSULE 300 MG PO (18:28)
[2018-07-23 18:45] VITALS: BP 101/53; PULSE 63; RESP 18; O2SAT 100
== END 2018-07-23 18:53 | disposition home or self-care (01) ==
PROVIDERS: Emergency Provider Emergency Medicine
DX: L02.91 Cutaneous abscess, unspecified (principal)
CPT/HCPCS: 10060; 76882; 99283; J1885

== ENCOUNTER → 2018-10-27 15:35 | Outpatient (CLI) | payer OTHER, MEDICAID, SELFPAY | PROVIDERS: Visit Provider Physician Assistant | DX: N39.0 Urinary tract infection, site not specified (principal) | CPT/HCPCS: 87077; 87086; 87186 ==

== ENCOUNTER 2018-11-20 20:57 | Emergency (ER) | payer OTHER, MEDICAID, SELFPAY ==
[2018-11-20 21:03] VITALS: BP 127/89; PULSE 91; RESP 22; TEMP 36.2; O2SAT 99; BMI 24.0
--- NOTE | 2018-11-20 21:22 | ED.DENTAL ---
HPI - Dental/Oral General Chief complaint: Dental/Oral Stated complaint: states abcess tooth Time Seen by Provider: 11/20/18 21:11 Source: patient Mode of arrival: ambulatory Limitations: no limitations History of Present Illness HPI Narrative: The patient is a 33-year-old female who presents with dental pain. She says it has been ongoing for last 2 weeks. She has multiple dental caries. She denies any facial swelling no fevers. 1. No dental abscess multiple dental carries Related Data Home Medications Medication Instructions Recorded Confirmed sertraline [Zoloft] 150 mg PO QAM 04/06/18 10/27/18 buprenorphine-naloxone [Suboxone] 2 film SUBLINGUAL DAILYX7 07/23/18 10/27/18 Previous Rx's Medication Instructions Recorded acetaminophen 500 mg PO Q6H PRN #30 tab 05/22/18 meloxicam [Mobic] 7.5 mg PO DAILY #10 tab 07/23/18 nitrofurantoin 100 mg PO BID #14 cap 10/27/18 monohydrate/macrocrystals 100 mg capsule ondansetron 4 mg disintegrating 4 mg PO BID PRN #10 tab 10/27/18 tablet amoxicillin 500 mg PO TID 7 Days #21 cap 11/20/18 Allergies Allergy/AdvReac Type Severity Reaction Status Date / Time Sulfa (Sulfonamide Allergy Verified 10/27/18 13:38 Antibiotics) Review of Systems Review of Systems GENERAL: Denies chills,fever HEENT: See HPI RESPIRATORY: Denies dyspnea, cough, wheezing CARDIOVASCULAR: Denies chest pain, palpitations GASTROINTESTINAL: Denies nausea, vomiting MUSCULOSKELETAL: Denies extremity pain, injury SKIN: No rash, no laceration, no pruritus NEUROLOGIC: Denies weakness, dizziness, headache, numbness 8 point review of systems is negative except for those stated above and HPI PFSH Medical History Drug abuse (Acute) Surgical History No pertinent past surgical history (Acute) Social History (Updated 07/23/18 @ 15:17 by Katherin Hussein DO) Smoking Status: Current every day smoker alcohol intake: current substance use type: heroin and IV drugs Social History Smoking Status: Current every day smoker alcohol intake: current substance use type: heroin and IV drugs Exam Initial Vital Signs Initial Vital Signs: Vital Signs Temperature 97.2 F L 11/20/18 21:03 Pulse Rate 91 H 11/20/18 21:03 Respiratory Rate 22 11/20/18 21:03 Blood Pressure 127/89 11/20/18 21:03 Pulse Oximetry 99 11/20/18 21:03 GENERAL: Well-appearing, well-nourished and in no acute distress. MOUTH: Multiple dental caries no trismus no facial swelling no erythema no dental abscess appreciated CARDIOVASCULAR: peripheral pulses in tact, cap refill <2 sec RESPIRATORY: No respiratory distress, speaks in full sentences without difficulty EXTREMITIES: Normal range of motion, no clubbing or edema. Neurovascularly intact NEUROLOGICAL: Cranial nerves II through XII grossly intact. Normal gait and speech. SKIN: Warm, dry, no petechiae, no rashes or lesions. Procedures Nerve Block Nerve Block 1: Time out performed: Yes Local Anesthetic: bupivacaine 0.25% and with epi Side: right Intraoral Nerve Block: supraperiosteal Procedure Successful: Yes Patient Tolerated Procedure: Well Complications: none Course Orders Ordered: Discontinued Medications Amoxicillin ( Trimox 250mg Prepack) 1 bottle [facility] ONE Stop: 11/20/18 21:36 Last Admin: 11/20/18 21:40 Dose: 1 bottle Vital Signs - 8 hr 11/20/18 21:03 Temperature 97.2 F L Pulse Rate 91 H Respiratory Rate 22 Blood Pressure 127/89 Pulse Oximetry 99 Discharge Plan Departure Patient Disposition: Home Clinical Impression: Pain, dental Discharge Date/Time: 11/20/18 21:44 Interventions: ED Discharge Assessment Last Done: 11/20/18 21:43 Instructions: DI for Dental Pain Activity Restrictions/Additional Instructions: *You have been diagnosed with dental pain *What to do: you need to see a dentist *Continue to take medications as directed amoxicillin 500 mg 3 times a day for 1 week-->[facility] [place] *Follow up with your primary care provider in 2-3 days *Return to ER if you should have increased pain facial swelling fevers or any new, worsening or concerning symptoms Prescriptions: New amoxicillin 500 mg capsule 500 mg PO TID 7 Days Qty: 21 RF: 0 No Action ondansetron 4 mg tablet,disintegrating 4 mg PO BID PRN (Reason: nausea and vomiting) Qty: 10 RF: 0 nitrofurantoin monohyd/m-cryst [Macrobid] 100 mg capsule 100 mg PO BID Qty: 14 RF: 0 buprenorphine-naloxone [Suboxone] 8-2 mg film 2 film Sublingual DAILYX7 RF: 0 meloxicam [Mobic] 7.5 mg tablet 7.5 mg PO DAILY Qty: 10 RF: 0 sertraline [Zoloft] 100 MG tablet 150 mg PO QAM RF: 0 acetaminophen 500 mg tablet 500 mg PO Q6H PRN (Reason: pain) Qty: 30 RF: 0
--- NOTE | 2018-11-20 21:25 | ED_ITS ---
HPI - Dental/Oral General Chief complaint: Dental/Oral Stated complaint: states abcess tooth Time Seen by Provider: 11/20/18 21:11 Source: patient Mode of arrival: ambulatory Limitations: no limitations History of Present Illness HPI Narrative: The patient is a 33-year-old female who presents with dental pain. She says it has been ongoing for last 2 weeks. She has multiple dental caries. She denies any facial swelling no fevers. 1. No dental abscess multiple dental carries Related Data Home Medications Medication Instructions Recorded Confirmed sertraline [Zoloft] 150 mg PO QAM 04/06/18 10/27/18 buprenorphine-naloxone [Suboxone] 2 film SUBLINGUAL DAILYX7 07/23/18 10/27/18 Previous Rx's Medication Instructions Recorded acetaminophen 500 mg PO Q6H PRN #30 tab 05/22/18 meloxicam [Mobic] 7.5 mg PO DAILY #10 tab 07/23/18 nitrofurantoin 100 mg PO BID #14 cap 10/27/18 monohydrate/macrocrystals 100 mg capsule ondansetron 4 mg disintegrating 4 mg PO BID PRN #10 tab 10/27/18 tablet amoxicillin 500 mg PO TID 7 Days #21 cap 11/20/18 Allergies Allergy/AdvReac Type Severity Reaction Status Date / Time Sulfa (Sulfonamide Allergy Verified 10/27/18 13:38 Antibiotics) Review of Systems Review of Systems GENERAL: Denies chills,fever HEENT: See HPI RESPIRATORY: Denies dyspnea, cough, wheezing CARDIOVASCULAR: Denies chest pain, palpitations GASTROINTESTINAL: Denies nausea, vomiting MUSCULOSKELETAL: Denies extremity pain, injury SKIN: No rash, no laceration, no pruritus NEUROLOGIC: Denies weakness, dizziness, headache, numbness 8 point review of systems is negative except for those stated above and HPI PFSH Medical History Drug abuse (Acute) Surgical History No pertinent past surgical history (Acute) Social History (Updated 07/23/18 @ 15:17 by Katherin Hussein DO) Smoking Status: Current every day smoker alcohol intake: current substance use type: heroin and IV drugs Social History Smoking Status: Current every day smoker alcohol intake: current substance use type: heroin and IV drugs Exam Initial Vital Signs Initial Vital Signs: Vital Signs Temperature 97.2 F L 11/20/18 21:03 Pulse Rate 91 H 11/20/18 21:03 Respiratory Rate 22 11/20/18 21:03 Blood Pressure 127/89 11/20/18 21:03 Pulse Oximetry 99 11/20/18 21:03 GENERAL: Well-appearing, well-nourished and in no acute distress. MOUTH: Multiple dental caries no trismus no facial swelling no erythema no dental abscess appreciated CARDIOVASCULAR: peripheral pulses in tact, cap refill <2 sec RESPIRATORY: No respiratory distress, speaks in full sentences without difficulty EXTREMITIES: Normal range of motion, no clubbing or edema. Neurovascularly intact NEUROLOGICAL: Cranial nerves II through XII grossly intact. Normal gait and speech. SKIN: Warm, dry, no petechiae, no rashes or lesions. Procedures Nerve Block Nerve Block 1: Time out performed: Yes Local Anesthetic: bupivacaine 0.25% and with epi Side: right Intraoral Nerve Block: supraperiosteal Procedure Successful: Yes Patient Tolerated Procedure: Well Complications: none Course Orders Ordered: Discontinued Medications Amoxicillin ( Trimox 250mg Prepack) 1 bottle [facility] ONE Stop: 11/20/18 21:36 Last Admin: 11/20/18 21:40 Dose: 1 bottle Vital Signs - 8 hr 11/20/18 21:03 Temperature 97.2 F L Pulse Rate 91 H Respiratory Rate 22 Blood Pressure 127/89 Pulse Oximetry 99 Discharge Plan Departure Patient Disposition: Home Clinical Impression: Pain, dental Discharge Date/Time: 11/20/18 21:44 Interventions: ED Discharge Assessment Last Done: 11/20/18 21:43 Instructions: DI for Dental Pain Activity Restrictions/Additional Instructions: *You have been diagnosed with dental pain *What to do: you need to see a dentist *Continue to take medications as directed amoxicillin 500 mg 3 times a day for 1 week-->[facility] [place] *Follow up with your primary care provider in 2-3 days *Return to ER if you should have increased pain facial swelling fevers or any new, worsening or concerning symptoms Prescriptions: New amoxicillin 500 mg capsule 500 mg PO TID 7 Days Qty: 21 RF: 0 No Action ondansetron 4 mg tablet,disintegrating 4 mg PO BID PRN (Reason: nausea and vomiting) Qty: 10 RF: 0 nitrofurantoin monohyd/m-cryst [Macrobid] 100 mg capsule 100 mg PO BID Qty: 14 RF: 0 buprenorphine-naloxone [Suboxone] 8-2 mg film 2 film Sublingual DAILYX7 RF: 0 meloxicam [Mobic] 7.5 mg tablet 7.5 mg PO DAILY Qty: 10 RF: 0 sertraline [Zoloft] 100 MG tablet 150 mg PO QAM RF: 0 acetaminophen 500 mg tablet 500 mg PO Q6H PRN (Reason: pain) Qty: 30 RF: 0
[2018-11-20] MEDS: AMOXICILLIN 250 MG PREPACK 1 BOTTLE MISC (21:40)
== END 2018-11-20 21:44 | disposition home or self-care (01) ==
PROVIDERS: Emergency Provider Emergency Medicine
DX: K08.89 Other specified disorders of teeth and supporting structures (principal)
CPT/HCPCS: 64402; 99282; 99283

== ENCOUNTER 2018-12-16 18:59 | Emergency (ER) | payer OTHER, MEDICAID, SELFPAY ==
[2018-12-16 19:11] VITALS: BP 109/64; PULSE 100; RESP 24; TEMP 38.8; O2SAT 100; BMI 23.5
--- NOTE | 2018-12-16 21:11 | ED.FEMALEGU ---
HPI - Female Genitourinary General Chief complaint: Urogenital-Female Stated complaint: thinks kidney infection Time Seen by Provider: 12/16/18 21:08 Source: patient Mode of arrival: ambulatory Limitations: no limitations History of Present Illness HPI Narrative: 33-year-old female here for evaluation of chills, body aches, fevers, dysuria, urinary frequency, urinary urgency, hematuria, back pain, nausea. She states symptoms been going on for the past couple days over worsening over the past day or so. She has had kidney infections in the past and she states this feels like prior kidney infection Related Data Home Medications Medication Instructions Recorded Confirmed sertraline [Zoloft] 150 mg PO QAM 04/06/18 10/27/18 buprenorphine-naloxone [Suboxone] 2 film SUBLINGUAL DAILYX7 07/23/18 10/27/18 Previous Rx's Medication Instructions Recorded acetaminophen 500 mg PO Q6H PRN #30 tab 05/22/18 meloxicam [Mobic] 7.5 mg PO DAILY #10 tab 07/23/18 nitrofurantoin 100 mg PO BID #14 cap 10/27/18 monohydrate/macrocrystals 100 mg capsule ondansetron 4 mg disintegrating 4 mg PO BID PRN #10 tab 10/27/18 tablet cephalexin [Keflex] 500 mg PO BID 14 Days #28 cap 12/16/18 Allergies Allergy/AdvReac Type Severity Reaction Status Date / Time Sulfa (Sulfonamide Allergy Verified 10/27/18 13:38 Antibiotics) Review of Systems Constitutional Reports fever(s) and Reports headache(s) ENT Ears, Nose, Mouth, and Throat: Reports headache(s) Cardiovascular Denies chest pain and Denies dyspnea Respiratory Denies dyspnea Gastrointestinal Gastrointestinal: Reports abdominal pain, Denies change in stool character, Reports cramping, Reports nausea and Reports vomiting Genitourinary Reports urinary frequency, Reports difficulty voiding, Reports dysuria, Denies urinary incontinence, Reports urinary hesitancy, Reports urinary urgency and Denies vaginal discharge Musculoskeletal Denies myalgias and Denies arthralgias Integumentary/Breasts Denies rash Neurologic Denies behavioral changes and Reports headache(s) Psychiatric Denies behavioral changes Hematologic/Lymphatic Denies easy bleeding and Denies easy bruising Allergic/Immunologic Denies urticaria [facility] Medical History Drug abuse (Acute) Social History Smoking Status: Current every day smoker alcohol intake: current substance use type: heroin and IV drugs Exam Initial Vital Signs Initial Vital Signs: Vital Signs Temperature 101.8 F H 12/16/18 19:11 Pulse Rate 100 H 12/16/18 19:11 Respiratory Rate 24 12/16/18 19:11 Blood Pressure 109/64 12/16/18 19:11 Pulse Oximetry 100 12/16/18 19:11 Const General: cooperative and well groomed Orientation: alert, awake and oriented x3 Resp Effort & Inspection: normal respiratory effort Auscultation: clear to auscultation bilaterally Cardio Rate: tachycardic Rhythm: regular rhythm GI Inspection: non-distended Palpation: soft, No firm and tender (Lower abdomen) Back/Spine/Pelvis Back: CVA tenderness (Bilateral) Skin Rashes: no rashes Neuro General: alert and awake Cognition: normal cognition Speech: speech normal Motor: muscle tone normal throughout Extrem General: normal to inspection and capillary refill normal Psych Appearance: well kempt Scores GCS Quique coma scale eye opening: Spontaneous Quique coma scale verbal response: Orientated Quique coma scale motor response: Obey commands Quique coma scale total score: 15 Course Orders Ordered: ED Orders 12/16/18 21:50 Basic Metabolic Panel Stat Complete Blood Count AUTO DIFF Stat Lactate (Lactic Acid) Stat Test Serum,Qual Stat Procalcitonin Stat Urinalysis and Microscopic Stat Urine Culture Stat 12/16/18 22:15 Blood Culture Stat Discontinued Medications Acetaminophen (Tylenol) 975 mg PO NOW ONE Stop: 12/16/18 21:13 Last Admin: 12/16/18 22:04 Dose: 975 mg Sodium Chloride (Normal Saline 0.9%) 1,000 mls @ 1,000 mls/hr IV BOLUS ONE Stop: 12/16/18 22:11 Last Infusion: 12/16/18 23:18 Dose: 0 mls/hr Admin: 12/16/18 22:04 Dose: 1,000 mls/hr Ceftriaxone Sodium/Dextrose (Rocephin) 1 gm in 50 mls @ 100 mls/hr IV NOW ONE Stop: 12/16/18 21:43 Last Infusion: 12/16/18 22:58 Dose: 0 mls/hr Admin: 12/16/18 22:05 Dose: 100 mls/hr Vital Signs - 8 hr 12/16/18 22:04 12/16/18 22:05 12/16/18 22:58 Temperature 100.6 F H 100.6 F H 98.9 F Pulse Rate 100 H 95 H Respiratory Rate 19 17 Blood Pressure [Left Arm] 98/49 L 98/49 L Pulse Oximetry 100 98 12/16/18 22:59 12/16/18 23:05 Temperature 98.9 F Pulse Rate 87 Respiratory Rate 15 Blood Pressure [Left Arm] 99/47 L Pulse Oximetry 97 MDM - Female Genitourinary Lab Data Attestation: I reviewed the patient's lab results. Result diagrams: 12/16/18 21:50 12/16/18 21:50 Lab Results 12/16/18 12/16/18 12/16/18 Range/Units 21:50 21:50 21:50 WBC 10.4 (4.5-11.0) X10^3/uL RBC 4.44 (4.0-5.2) X10^6/uL Hgb 12.9 (12.0-16.0) g/dL Hct 37.7 (36-46) % MCV 84.9 (80-100) fL MCH 29.0 (26-34) PG MCHC 34.2 (30-36) % RDW 13.8 (11.6-14.8) % Plt Count 174 (150-400) X10^3/uL Neut % (Auto) 80.1 H (50-75) % Lymph % (Auto) 11.8 L (25-40) % [place] % (Auto) 7.4 (3-14) % Eos % (Auto) 0.4 L (2-4) % Baso % (Auto) 0.3 (0-2) % Neut # (Auto) 8400 H (4628-8572) /uL Lymph # (Auto) 1200 (4927-2114) /uL Livingston # (Auto) 800 (0-900) /uL Eos # (Auto) 0 (0-450) /uL Baso # (Auto) 0 (0-100) /uL Sodium 135 L (137-145) mmol/L Potassium 3.5 (3.4-5.1) mmol/L Chloride 100 (98-107) mmol/L Carbon Dioxide 28 (22-32) mmol/L BUN 7 (7-17) mg/dL Creatinine 0.70 (0.52-1.04) mg/dL Estimated GFR > 60.0 (>60) mL/min BUN/Creatinine Ratio 10.0 (6-22) Glucose 116 H (70-100) mg/dL Lactate (0.7-2.1) mmol/L Calcium 8.5 (8.4-10.2) mg/dL Procalcitonin (<0.5) ng/mL Serum , Qual (Negative) Urine Color Yellow Urine Appearance Sl cloudy Urine pH 5.5 (4.5-8.0) Ur Specific [place] <=1.005 (1.000-1.035) Urine Protein 1+ H (Negative) Urine Glucose (UA) Negative (Negative) g/dL Urine Ketones Negative (NEGATIVE) Urine Occult Blood 2+ H (Negative) Urine Nitrate Positive (Negative) Urine Bilirubin Negative (NEGATIVE) Urine Urobilinogen 0.2 (0.2) E.U./dL Ur Leukocyte Esterase 3+ H (NEGATIVE) Urine RBC 5-10/hpf H (0-5/HPF) Urine WBC >100/hpf H (0-5/HPF) Ur Squamous Epith Cells 1-5 /hpf (0-5/HPF) Urine Bacteria Many (>30) H (None) Ur Culture Indicated? Specimen cultured 12/16/18 12/16/18 Range/Units 21:50 21:50 WBC (4.5-11.0) X10^3/uL RBC (4.0-5.2) X10^6/uL Hgb (12.0-16.0) g/dL Hct (36-46) % MCV (80-100) fL MCH (26-34) PG MCHC (30-36) % RDW (11.6-14.8) % Plt Count (150-400) X10^3/uL Neut % (Auto) (50-75) % Lymph % (Auto) (25-40) % Livingston % (Auto) (3-14) % Eos % (Auto) (2-4) % Baso % (Auto) (0-2) % Neut # (Auto) (1777-2169) /uL Lymph # (Auto) (1122-2238) /uL Livingston # (Auto) (0-900) /uL Eos # (Auto) (0-450) /uL Baso # (Auto) (0-100) /uL Sodium (137-145) mmol/L Potassium (3.4-5.1) mmol/L Chloride (98-107) mmol/L Carbon Dioxide (22-32) mmol/L BUN (7-17) mg/dL Creatinine (0.52-1.04) mg/dL Estimated GFR (>60) mL/min BUN/Creatinine Ratio (6-22) Glucose (70-100) mg/dL Lactate 1.1 (0.7-2.1) mmol/L Calcium (8.4-10.2) mg/dL Procalcitonin 0.28 (<0.5) ng/mL Serum , Qual Negative (Negative) Urine Color Urine Appearance Urine pH (4.5-8.0) Ur Specific [place] (1.000-1.035) Urine Protein (Negative) Urine Glucose (UA) (Negative) g/dL Urine Ketones (NEGATIVE) Urine Occult Blood (Negative) Urine Nitrate (Negative) Urine Bilirubin (NEGATIVE) Urine Urobilinogen (0.2) E.U./dL Ur Leukocyte Esterase (NEGATIVE) Urine RBC (0-5/HPF) Urine WBC (0-5/HPF) Ur Squamous Epith Cells (0-5/HPF) Urine Bacteria (None) Ur Culture Indicated? MDM Narrative Medical decision making narrative: Patient is febrile and tachycardic upon arrival. She was given Tylenol which did improve with these symptoms. Her urine is nitrite positive. She does not have a leukocytosis in her lactate unremarkable. Given her nausea and the symptoms that she is having in the nitrite positive urine and the flank pain is concern for pyelonephritis. She is tolerating oral intake. She was given IV antibiotics here in the emergency department. Will send her home with a prescription for the remainder of this. She was given return precautions and follow-up instructions. Considered admitting her to the hospital however given her improvement after the fluids and the Tylenol antibiotics here in the emergency department feel that a trial of outpatient treatment is not unreasonable. Patient will return if her symptoms worsen. Discharge Plan Departure Patient Disposition: Home Clinical Impression: Pyelonephritis Discharge Date/Time: 12/16/18 23:54 Interventions: ED Discharge Assessment Last Done: 12/16/18 23:53 Instructions: DI for Kidney Infection Activity Restrictions/Additional Instructions: Take the antibiotics as directed. You can take Tylenol and/or ibuprofen for any fevers or body aches. Contact her primary provider for follow-up. If you do not have a primary provider you can contact [phone]. Return to the emergency department for any new or worsening symptoms Prescriptions: New cephalexin [Keflex] 500 mg capsule 500 mg PO BID 14 Days Qty: 28 RF: 0 No Action ondansetron 4 mg tablet,disintegrating 4 mg PO BID PRN (Reason: nausea and vomiting) Qty: 10 RF: 0 nitrofurantoin monohyd/m-cryst [Macrobid] 100 mg capsule 100 mg PO BID Qty: 14 RF: 0 buprenorphine-naloxone [Suboxone] 8-2 mg film 2 film Sublingual DAILYX7 RF: 0 meloxicam [Mobic] 7.5 mg tablet 7.5 mg PO DAILY Qty: 10 RF: 0 sertraline [Zoloft] 100 MG tablet 150 mg PO QAM RF: 0 acetaminophen 500 mg tablet 500 mg PO Q6H PRN (Reason: pain) Qty: 30 RF: 0
[2018-12-16 21:56] LABS: Appearance Urine UA SL CLOUDY; Bilirubin Urine UA NEGATIVE (NEGATIVE); Color Urine UA YELLOW; Glucose Urine UA NEGATIVE (Negative); Ketones Urine UA NEGATIVE (NEGATIVE); Leukocyte Esterase Urine UA 3+ (NEGATIVE); Nitrite Urine UA POSITIVE (Negative); Occult Blood Urine UA 2+ (Negative); Protein Urine UA 1+ (Negative); Specific Gravity Urine UA <=1.005 (1.000-1.035); Urobilinogen Urine UA 0.2 E.U./dL (0.2); pH Urine UA 5.5 (4.5-8.0)
[2018-12-16 22:02] LABS: RBC Urine 5-10/HPF (0-5/HPF); WBC Urine >100/HPF (0-5/HPF)
[2018-12-16 22:03] LABS: Bacteria Urine Many (>30); Culture Indicated Urine Specimen Cultured; Squamous Epithelial Cell Urine 1-5 /HPF (0-5/HPF)
[2018-12-16 22:04] VITALS: TEMP 38.1
[2018-12-16 22:04] LABS: Add Manual Diff / Slide Review NO; Basophils Absolute Auto 0 /uL (0-100); Basophils Percent Auto 0.3 % (0-2); Eosinophils Absolute Auto 0 /uL (0-450); Eosinophils Percent Auto 0.4 % (2-4); Hematocrit 37.7 % (36-46); Hemoglobin 12.9 g/dL (12.0-16.0); Lymphocytes Absolute Auto 1200 /uL (1100-4500); Lymphocytes Percent Auto 11.8 % (25-40); Mean Corpuscular HGB Conc 34.2 % (30-36); Mean Corpuscular Volume 84.9 fL (80-100); Monocytes Absolute Auto 800 /uL (0-900); Monocytes Percent Auto 7.4 % (3-14); Neutrophils Absolute Auto 8400 /uL (1500-7000); Neutrophils Percent Auto 80.1 % (50-75); Platelet Count 174 X10^3/uL (150-400); Red Blood Cell Count 4.44 X10^6/uL (4.0-5.2); Red Cell Distribution Width 13.8 % (11.6-14.8); White Blood Cell Count 10.4 X10^3/uL (4.5-11.0)
[2018-12-16] MEDS: ACETAMINOPHEN 325 MG TABLET 975 MG PO (22:04)
[2018-12-16] MEDS: SODIUM CHLORIDE 0.9% 1,000 ML 1000 ML IV (22:04)
[2018-12-16 22:05] VITALS: BP 98/49; PULSE 100; RESP 19; TEMP 38.1; O2SAT 100
[2018-12-16] MEDS: CEFTRIAXONE 1 GM/50 ML FROZ.PIGGY IV (22:05)
[2018-12-16 22:18] LABS: Blood Urea Nitrogen 7 mg/dL (7-17); Calcium 8.5 mg/dL (8.4-10.2); Carbon Dioxide 28 mmol/L (22-32); Chloride 100 mmol/L (98-107); Estimated Glomerular Filt Rate > 60.0 mL/min (>60); Glucose 116 mg/dL (70-100); HEMOLYSIS < 15 (0-50); Potassium 3.5 mmol/L (3.4-5.1); Sodium 135 mmol/L (137-145)
[2018-12-16 22:19] LABS: Lactate (Lactic Acid) 1.1 mmol/L (0.7-2.1)
[2018-12-16 22:26] LABS: Pregnancy Test Serum,Qual Negative (Negative)
[2018-12-16 22:53] LABS: Procalcitonin 0.28 ng/mL (<0.5)
[2018-12-16 22:58] VITALS: BP 98/49; PULSE 95; RESP 17; TEMP 37.2; O2SAT 98
[2018-12-16 22:59] VITALS: TEMP 37.2
[2018-12-16 23:05] VITALS: BP 99/47; PULSE 87; RESP 15; O2SAT 97
[2018-12-17 11:30] LABS: Acinetobacter baumannii Not Detected (Not Detect); Candida albicans Not Detected (Not Detect); Candida glabrata Not Detected (Not Detect); Candida krusei Not Detected (Not Detect); Candida parapsilosis Not Detected (Not Detect); Candida tropicalis Not Detected (Not Detect); E. coli Detected (Not Detect); Enterobacter cloacae complex Not Detected (Not Detect); Enterobacteriaceae species Detected (Not Detect); Enterococcus species Not Detected (Not Detect); Haemophilus influenzae Not Detected (Not Detect); KPC (carbapenem-resist gene) Not Detected (Not Detect); Listeria monocytogenes Not Detected (Not Detect); Neisseria meningitidis Not Detected (Not Detect); Proteus species Not Detected (Not Detect); Pseudomonas aeruginosa Not Detected (Not Detect); Serratia marcescens Not Detected (Not Detect); Staphylococcus species Not Detected (Not Detect); Streptococcus agalactiae (Gr B Not Detected (Not Detect); Streptococcus pneumonia Not Detected (Not Detect); Streptococcus pyogenes (Gr A) Not Detected (Not Detect); Streptococcus species Not Detected (Not Detect)
== END 2018-12-16 23:54 | disposition home or self-care (01) ==
PROVIDERS: Emergency Provider Emergency Medicine
DX: N12 Tubulo-interstitial nephritis, not specified as acute or chronic (principal)
CPT/HCPCS: 36591; 80048; 81001; 83605; 84145; 84703; 85025; 87040; 87077; 87086; 87150; 87186; 87205; 96365; 99283; 99284

== ENCOUNTER 2019-01-21 03:39 | Emergency (ER) | payer OTHER, MEDICAID, SELFPAY ==
[2019-01-21 03:52] VITALS: BP 120/78; PULSE 88; RESP 17; TEMP 37.2; O2SAT 100; BMI 21.9
[2019-01-21] MEDS: LIDOCAINE 1% (PF) 6 ML INJ ×2 (04:09→04:28)
--- NOTE | 2019-01-21 04:21 | ED.SKABFB ---
HPI - Skin/Abscess/Foreign Bdy General Chief complaint: Skin/Abscess/Foreign Body Stated complaint: sore on vaginal area/keeps getting bigger/pain Time Seen by Provider: 01/21/19 03:40 Source: patient Mode of arrival: ambulatory Limitations: no limitations History of Present Illness HPI narrative: 33-year-old female here for evaluation of a red swelling on the right side of her vaginal area. States it has been worsening over the past day or so. Painful to the touch. Has had abscesses in the past needing drainage. She is an IV heroin user. States she did not inject herself in this area. No urinary symptoms. Related Data Home Medications Medication Instructions Recorded Confirmed sertraline [Zoloft] 150 mg PO QAM 04/06/18 10/27/18 buprenorphine-naloxone [Suboxone] 2 film SUBLINGUAL DAILYX7 07/23/18 10/27/18 Previous Rx's Medication Instructions Recorded acetaminophen 500 mg PO Q6H PRN #30 tab 05/22/18 meloxicam [Mobic] 7.5 mg PO DAILY #10 tab 07/23/18 nitrofurantoin 100 mg PO BID #14 cap 10/27/18 monohydrate/macrocrystals 100 mg capsule ondansetron 4 mg disintegrating 4 mg PO BID PRN #10 tab 10/27/18 tablet doxycycline hyclate 100 mg PO BID 7 Days #14 cap 01/21/19 Allergies Allergy/AdvReac Type Severity Reaction Status Date / Time Sulfa (Sulfonamide Allergy Verified 10/27/18 13:38 Antibiotics) Review of Systems Constitutional Constitutional: Denies fever(s) Genitourinary Genitourinary: Denies dysuria and Denies vaginal discharge Integumentary/Breasts Comments: Redness and swelling and pain to the right-sided vaginal region Hematologic/Lymphatic Hematologic/Lymphatic: Denies easy bleeding and Denies easy bruising [facility] Medical History Drug abuse (Acute) Surgical History No pertinent past surgical history (Acute) Social History Smoking Status: Current every day smoker alcohol intake: current substance use type: heroin and IV drugs Social History Smoking Status: Current every day smoker alcohol intake: current substance use type: heroin and IV drugs Exam Initial Vital Signs Initial Vital Signs: Vital Signs Temperature 98.9 F 01/21/19 03:52 Pulse Rate 88 01/21/19 03:52 Respiratory Rate 17 01/21/19 03:52 Blood Pressure 120/78 01/21/19 03:52 Pulse Oximetry 100 01/21/19 03:52 Const General: cooperative Orientation: alert, awake and oriented x3 GI Inspection: non-distended Palpation: soft Other: Patient with swelling to the right-sided perineum. The labia and external area of the vagina appear unremarkable. Skin Other: Patient has a large area of redness and swelling to the right-sided vaginal area. It is outside the labia. He is tender the touch. There is surrounding erythema. Patient also has a quarter-sized area of what appears to be a draining abscess on the ulnar aspect of her right forearm. Neuro General: alert and awake Extrem General: No edema Procedures Abscess I/D Site: other (Perineum) Side (if applicable): right Local Anesthetic: lidocaine 1% Amount of anesthesia used (mL): 8 Technique: incised with #11 blade Irrigation: No Packing used?: none Complications: bleeding Course Orders Ordered: Discontinued Medications Lidocaine HCl (Xylocaine 1% (Pf)) 6 ml INJ NOW ONE Stop: 01/21/19 03:52 Last Admin: 01/21/19 04:09 Dose: 2 ml Documented by: [email or web address] Lidocaine HCl (Xylocaine 1% (Pf)) 6 ml INJ NOW ONE Stop: 01/21/19 04:15 Vital Signs Vital signs: Vital Signs - 8 hr 01/21/19 03:52 Temperature 98.9 F Pulse Rate 88 Respiratory Rate 17 Blood Pressure 120/78 Pulse Oximetry 100 MDM - Skin/Abscess/Foreign Bdy MDM Narrative Medical decision making narrative: The wound on her right forearm is draining spontaneously and does appear to be healing. She does have large abscess seen on the right-sided perineum that was identified with ultrasound. It was drained as described above. I did use 2 separate incisions sites no packing was used. I did probe the area with a cotton tip applicator to break up any loculations. Patient tolerated procedure well. Given her IV drug use and now the 2 sites of abscesses can currently will start the patient on antibiotics. She was given a prescription for doxycycline. She was given care instructions and return precautions. She expressed understanding and agreement with plan. Discharge Plan Departure Patient Disposition: Home Clinical Impression: Abscess Discharge Date/Time: 01/21/19 04:26 Instructions: DI for Incision and Drainage of a Skin Abscess, DI for Skin Abscess Activity Restrictions/Additional Instructions: Expect some oozing from the drainage sites. Keep it covered is best you can. You can shower like normal. You can use soap and water like normal. Take the antibiotics as directed. You can contact 360 talk with the health information resource consultant here in the hospital to establish a primary provider. Return to the emergency department for any new or worsening symptoms Prescriptions: New doxycycline hyclate 100 mg capsule 100 mg PO BID 7 Days Qty: 14 RF: 0 No Action ondansetron 4 mg tablet,disintegrating 4 mg PO BID PRN (Reason: nausea and vomiting) Qty: 10 RF: 0 nitrofurantoin monohyd/m-cryst [Macrobid] 100 mg capsule 100 mg PO BID Qty: 14 RF: 0 buprenorphine-naloxone [Suboxone] 8-2 mg film 2 film Sublingual DAILYX7 RF: 0 meloxicam [Mobic] 7.5 mg tablet 7.5 mg PO DAILY Qty: 10 RF: 0 sertraline [Zoloft] 100 MG tablet 150 mg PO QAM RF: 0 acetaminophen 500 mg tablet 500 mg PO Q6H PRN (Reason: pain) Qty: 30 RF: 0
--- NOTE | 2019-01-21 04:25 | PC.NURSE ---
Bedside assist for Dr. Washington during assessment and lancing of labial cyst. Pt tolerated procedure well.
== END 2019-01-21 04:26 | disposition home or self-care (01) ==
PROVIDERS: Emergency Provider Emergency Medicine
DX: L02.215 Cutaneous abscess of perineum (principal)
CPT/HCPCS: 10060; 99282

== ENCOUNTER 2019-03-09 14:57 | Emergency (ER) | payer OTHER, MEDICAID, SELFPAY ==
[2019-03-09 15:01] VITALS: BP 99/63; PULSE 76; RESP 16; TEMP 36.6; O2SAT 100
--- NOTE | 2019-03-09 15:42 | ED_ITS ---
HPI - Skin/Abscess/Foreign Bdy <CLARI Doran-BC - Last Filed: 03/09/19 19:19> General Chief complaint: Skin/Abscess/Foreign Body Stated complaint: states left eye lid is infected Time Seen by Provider: 03/09/19 15:03 Source: patient Mode of arrival: Ambulatory Limitations: no limitations History of Present Illness HPI narrative: The patient is a 33-year-old female current everyday smoker with history of abscesses and iv heroin use who presents with a chief complaint of ?I have an infection of my left eyelid.She states that it became red and swollen a few days ago. She denies any visual deficit, blurry vision, double vision, haloing around lights. She states that it has been draining for few days. She denies any fevers nausea vomiting or diarrhea. She has not taken anything for pain. Related Data Home Medications Medication Instructions Recorded Confirmed sertraline [Zoloft] 150 mg PO QAM 04/06/18 10/27/18 buprenorphine-naloxone [Suboxone] 2 film SUBLINGUAL DAILYX7 07/23/18 10/27/18 Previous Rx's Medication Instructions Recorded acetaminophen 500 mg PO Q6H PRN #30 tab 05/22/18 meloxicam [Mobic] 7.5 mg PO DAILY #10 tab 07/23/18 nitrofurantoin 100 mg PO BID #14 cap 10/27/18 monohydrate/macrocrystals 100 mg capsule ondansetron 4 mg disintegrating 4 mg PO BID PRN #10 tab 10/27/18 tablet clindamycin HCl 300 mg PO QID #40 cap 03/09/19 Allergies Allergy/AdvReac Type Severity Reaction Status Date / Time Sulfa (Sulfonamide Allergy Verified 10/27/18 13:38 Antibiotics) Review of Systems <MIREYA DoranBC - Last Filed: 03/09/19 19:19> Review of Systems Narrative: GENERAL: Denies chills, fatigue, malaise, fever, sweats. HEENT: Denies sinus pain, ear pain, sore throat, difficulty swallowing, dizziness. RESPIRATORY: Denies dyspnea, cough, wheezing, hemoptysis, sputum. CARDIOVASCULAR: Denies chest pain, palpitations, orthopnea, edema, GASTROINTESTINAL: Denies nausea, vomiting, abdominal pain, diarrhea, constipation, melena. : Denies dysuria, frequency, incontinence, hematuria, urinary retention. MUSCULOSKELETAL: denies weakness, joint pain, or bony pain SKIN: See HPI NEUROLOGIC: Denies weakness, headache, numbness, change in speech, confusion, seizures, incoordination. PSYCHIATRIC: No concerning psychosocial issues. 12 point review of systems is negative except for those stated above Patient History <JOSIE Doran - Last Filed: 03/09/19 19:19> Medical History Drug abuse (Acute) Social History Smoking Status: Current every day smoker alcohol intake: current substance use type: heroin and IV drugs alcohol intake frequency: 0-2 drinks per day Substance Use Type: heroin Exam <JOSIE Doran - Last Filed: 03/09/19 19:19> Narrative Exam Narrative: GENERAL: This is a well-nourished, well-developed patient, in no acute distress HEAD: Atraumatic. Normocephalic. No temporal or scalp tenderness. EYES: Pupils equal round and reactive. Extraocular motions intact. No scleral icterus. No injection or drainage. No pain on EOMs. ENT: Nose without bleeding, purulent drainage or septal hematoma. Throat without erythema, tonsillar hypertrophy or exudate. Uvula midline. Airway patent. No pain to palpation of facial bones. NECK: Trachea midline. No JVD or lymphadenopathy. Supple, nontender, no meningeal signs. CARDIOVASCULAR: Regular rate and rhythm without murmurs, gallops, or rubs. RESPIRATORY: Clear to auscultation. Breath sounds equal bilaterally. No wheezes, rales, or rhonchi. No cough. No increased respiratory effort. No accessory muscle use. GASTROINTESTINAL: Abdomen soft, non-tender, nondistended. No hepato-splenome mathieu, or palpable masses. No guarding. EXTREMITIES: No clubbing, cyanosis, or edema. No joint tenderness, effusion, or edema noted. BACK: Nontender without deformity or crepitance. No flank tenderness. NEURO: AOx3. SKIN: Erythema noted isolated to left eyelid. Drainage noted at medial aspect with 0.5 cm wound. No extending erythema behind eyelid. Initial Vital Signs Initial Vital Signs: Vital Signs Temperature 97.9 F 03/09/19 15:01 Pulse Rate 76 03/09/19 15:01 Respiratory Rate 16 03/09/19 15:01 Blood Pressure 99/63 03/09/19 15:01 Pulse Oximetry 100 03/09/19 15:01 <Brigid Benson MD - Last Filed: 03/09/19 19:47> Initial Vital Signs Initial Vital Signs: Vital Signs Temperature 97.9 F 03/09/19 15:01 Pulse Rate 76 03/09/19 15:01 Respiratory Rate 16 03/09/19 15:01 Blood Pressure 99/63 03/09/19 15:01 Pulse Oximetry 100 03/09/19 15:01 Course <JOSIE Doran - Last Filed: 03/09/19 19:19> Orders Ordered: ED Orders 03/09/19 15:50 Wound Culture and Gram Stain Stat Vital Signs Vital signs: Vital Signs - 8 hr 03/09/19 15:01 Temperature 97.9 F Pulse Rate 76 Respiratory Rate 16 Blood Pressure 99/63 Pulse Oximetry 100 <Brigid Benson MD - Last Filed: 03/09/19 19:47> Orders Ordered: ED Orders 03/09/19 15:50 Wound Culture and Gram Stain Stat Vital Signs Vital signs: Vital Signs - 8 hr 03/09/19 15:01 Temperature 97.9 F Pulse Rate 76 Respiratory Rate 16 Blood Pressure 99/63 Pulse Oximetry 100 MDM - Skin/Abscess/Foreign Bdy <JOSIE Doran - Last Filed: 03/09/19 19:19> MDM Narrative Medical decision making narrative: The patient is a 33-year-old female current IV drug user who presents with a chief complaint of an eyelid infection she has no pain on EOMs, denies any vision issues, and her infection appears to be isolated to her leg. It is draining at this time, so I did obtain a wound culture. I am not suspicious of periorbital cellulitis given her exam. Given that she has allergies sulfa, started on clindamycin. Encouraged continued warm wet compresses. Encourage PCP follow-up. Discussed monitoring for signs of worsening infection and following up these occur. Patient has no questions or concerns upon discharge and states understanding of return precautions as well as plan of care. Discharge Plan Departure Patient Disposition: Home Clinical Impression: Cellulitis Qualifiers: Site of cellulitis: face Qualified Code(s): L03.211 - Cellulitis of face Discharge Date/Time: 03/09/19 16:13 Instructions: DI for Cellulitis -- Adult Activity Restrictions/Additional Instructions: I have given you a rx of an antibiotic. We have a wound culture pending at this time. If we need to change her antibiotics, you will get a phone call in 2-3 days. Please monitor for fever, vomiting, diarrhea spreading redness or signs of worsening infection. Please be evaluated if these occur. Please come back to the emergency department for any acute concerns. I suggest taking a probiotic or yogurt with your antibiotic. I suggest warm compresses several times a day. Prescriptions: New clindamycin HCl 300 mg capsule 300 mg PO QID Qty: 40 RF: 0 No Action ondansetron 4 mg tablet,disintegrating 4 mg PO BID PRN (Reason: nausea and vomiting) Qty: 10 RF: 0 nitrofurantoin monohyd/m-cryst [Macrobid] 100 mg capsule 100 mg PO BID Qty: 14 RF: 0 buprenorphine-naloxone [Suboxone] 8-2 mg film 2 film Sublingual DAILYX7 RF: 0 meloxicam [Mobic] 7.5 mg tablet 7.5 mg PO DAILY Qty: 10 RF: 0 sertraline [Zoloft] 100 MG tablet 150 mg PO QAM RF: 0 acetaminophen 500 mg tablet 500 mg PO Q6H PRN (Reason: pain) Qty: 30 RF: 0
== END 2019-03-09 16:13 | disposition home or self-care (01) ==
PROVIDERS: Emergency Provider Nurse Practitioner Family
DX: L03.211 Cellulitis of face (principal)
CPT/HCPCS: 87070; 87075; 87077; 87147; 87186; 87205; 99282; 99283

== ENCOUNTER 2019-03-31 15:34 | Emergency (ER) | payer OTHER, MEDICAID, SELFPAY ==
[2019-03-31 15:43] VITALS: BP 114/74; PULSE 89; RESP 15; TEMP 36.4; O2SAT 97; BMI 22.1
--- NOTE | 2019-03-31 16:11 | ED_ITS ---
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 She states that she has had multiple swollen sores ongoing on both forearms, however this 1 on her right side has gradually gotten more swollen, painful and red so she comes in today thinking it needs to be drained. She states that she has not had any fever. She is not having new joint pain in her arms. She has not had any chest pain or dyspnea. She states that she has had some dysuria for about the last week with urinary frequency, but has not had new abdominal or flank pain, vomiting or hematuria, no fever as noted above. She states she is feeling at her baseline otherwise. She is homeless but states that she is able to get medications. She denies chronic medical problems aside from the drug abuse Related Data Home Medications Medication Instructions Recorded Confirmed sertraline [Zoloft] 150 mg PO QAM 04/06/18 10/27/18 buprenorphine-naloxone [Suboxone] 2 film SUBLINGUAL DAILYX7 07/23/18 10/27/18 Previous Rx's Medication Instructions Recorded acetaminophen 500 mg PO Q6H PRN #30 tab 05/22/18 ondansetron 4 mg disintegrating 4 mg PO BID PRN #10 tab 10/27/18 tablet clindamycin HCl 300 mg PO QID #40 cap 03/09/19 amoxicillin-pot clavulanate 1 tab PO Q12H #14 tab 03/31/19 [Augmentin] meloxicam [Mobic] 7.5 mg PO DAILY #14 tab 03/31/19 Allergies Allergy/AdvReac Type Severity Reaction Status Date / Time Sulfa (Sulfonamide Allergy Verified 03/31/19 15:43 Antibiotics) Review of Systems <Lauryn Montgomery PA-C - Last Filed: 03/31/19 20:42> Review of Systems ROS Unobtainable: All systems reviewed & are unremarkable except as noted in HPI and below Patient History <Lauryn Montgomery PA-C - Last Filed: 03/31/19 20:42> Surgical History No pertinent past surgical history (Acute) Social History Smoking Status: Current every day smoker alcohol intake: current substance use type: heroin and IV drugs alcohol intake frequency: holidays/special occasions only Substance Use Type: heroin Exam <Lauryn Montgomery PA-C - Last Filed: 03/31/19 20:42> Narrative Exam Narrative: GENERAL APPEARANCE: Patient sitting comfortably, in no distress. LUNGS: Clear to auscultation bilaterally. HEART: Rate and rhythm regular without murmur, normal S1 and S2, no S3 or S4. ABDOMEN: Soft, NT, ND, +BS x 4 quadrants, no CVAT. EXTREMITIES: No edema DERMATOLOGIC: Numerous erythematous lesions and scabs on the forearms, there is a large, fluctuant 1 on the right anterior mid forearm 3+ cm in diameter with surrounding erythema to-3 cm, indurated at the borders, slightly warm, no circumferential edema. There is a smaller, dusky lesion on the left forearm non fluctuant MUSCULOSKELETAL: Right elbow, wrist and hand full range of motion Initial Vital Signs Initial Vital Signs: Vital Signs Temperature 97.6 F 03/31/19 15:43 Pulse Rate 89 03/31/19 15:43 Respiratory Rate 15 03/31/19 15:43 Blood Pressure 114/74 03/31/19 15:43 Pulse Oximetry 97 03/31/19 15:43 <Flakita Rashid DO - Last Filed: 04/01/19 07:36> Initial Vital Signs Initial Vital Signs: Vital Signs Temperature 97.6 F 03/31/19 15:43 Pulse Rate 89 03/31/19 15:43 Respiratory Rate 15 03/31/19 15:43 Blood Pressure 114/74 03/31/19 15:43 Pulse Oximetry 97 03/31/19 15:43 Procedures <Lauryn Montgomery PA-C - Last Filed: 03/31/19 20:42> Abscess I/D Site: upper extremity Side (if applicable): right Local Anesthetic: lidocaine 1% and with epi Amount of anesthesia used (mL): 5 Technique: incised with #11 blade and other (Explored with hemostats) Irrigation: No Packing used?: none Course <Lauryn Montgomery PA-C - Last Filed: 03/31/19 20:42> Orders Ordered: Discontinued Medications Bacitracin (Bacitracin) 5 applic TOP NOW ONE Stop: 03/31/19 16:54 Last Admin: 03/31/19 17:00 Dose: 5 applic Documented by: ROSANNA Ibuprofen (Advil) 800 mg PO NOW ONE Stop: 03/31/19 16:20 Last Admin: 03/31/19 16:26 Dose: 800 mg Documented by: GORDONONER Lidocaine/Epinephrine (Xylocaine 1% W/Epi) 1 ml SUBCUT NOW ONE Stop: 03/31/19 16:20 Last Admin: 03/31/19 16:27 Dose: 1 ml Documented by: BTONER Vital Signs Vital signs: Vital Signs - 8 hr 03/31/19 15:43 03/31/19 17:10 Temperature 97.6 F Pulse Rate 89 79 Respiratory Rate 15 16 Blood Pressure 114/74 112/71 Pulse Oximetry 97 98 <Flakita Rashid DO - Last Filed: 04/01/19 07:36> Orders Ordered: Discontinued Medications Bacitracin (Bacitracin) 5 applic TOP NOW ONE Stop: 03/31/19 16:54 Last Admin: 03/31/19 17:00 Dose: 5 applic Documented by: ROSANNA Ibuprofen (Advil) 800 mg PO NOW ONE Stop: 03/31/19 16:20 Last Admin: 03/31/19 16:26 Dose: 800 mg Documented by: BTONER Lidocaine/Epinephrine (Xylocaine 1% W/Epi) 1 ml SUBCUT NOW ONE Stop: 03/31/19 16:20 Last Admin: 03/31/19 16:27 Dose: 1 ml Documented by: BTONER Vital Signs Vital signs: Vital Signs - 8 hr 03/31/19 15:43 03/31/19 17:10 Temperature 97.6 F Pulse Rate 89 79 Respiratory Rate 15 16 Blood Pressure 114/74 112/71 Pulse Oximetry 97 98 MDM - Skin/Abscess/Foreign Bdy <Lauryn Montgomery PA-C - Last Filed: 03/31/19 20:42> Lab Data Labs: Lab Results 03/31/19 Range/Units 16:10 Urine RBC None seen (0-5/HPF) Urine WBC 5-10/hpf H (0-5/HPF) Ur Squamous Epith Cells 1-5 /hpf (0-5/HPF) Amorphous Sediment 1+ Urine Bacteria Many (>30) H (None) Ur Culture Indicated? Specimen cultured Point of Care Testing Test Results Negative Urine Dip Bedside Urine Glucose Negative Bedside Urine Bilirubin - Negative Bedside Urine Ketone - Negative Urine Specific [place] 1.020 Bedside Urine Occult Blood - Negative Bedside Urine pH 6.0 Bedside Urine Protein +/- 15 Bedside Urine Urobilinogen +/- 1mg Bedside Urine Nitrite + Positive Bedside Urine Leukocytes - Negative Esterase <Flakita Rashid DO - Last Filed: 04/01/19 07:36> Lab Data Labs: Lab Results 03/31/19 Range/Units 16:10 Urine RBC None seen (0-5/HPF) Urine WBC 5-10/hpf H (0-5/HPF) Ur Squamous Epith Cells 1-5 /hpf (0-5/HPF) Amorphous Sediment 1+ Urine Bacteria Many (>30) H (None) Ur Culture Indicated? Specimen cultured Point of Care Testing Test Results Negative Urine Dip Bedside Urine Glucose Negative Bedside Urine Bilirubin - Negative Bedside Urine Ketone - Negative Urine Specific [place] 1.020 Bedside Urine Occult Blood - Negative Bedside Urine pH 6.0 Bedside Urine Protein +/- 15 Bedside Urine Urobilinogen +/- 1mg Bedside Urine Nitrite + Positive Bedside Urine Leukocytes - Negative Esterase Discharge Plan Departure Patient Disposition: Home Clinical Impression: Cellulitis and abscess of upper arm and forearm UTI (urinary tract infection) Qualifiers: Urinary tract infection type: acute cystitis Hematuria presence: without hematuria Qualified Code(s): N30.00 - Acute cystitis without hematuria Discharge Date/Time: 03/31/19 17:11 Instructions: DI for Cellulitis -- Adult, DI for Urinary Tract Infection (UTI), DI for Skin Abscess Activity Restrictions/Additional Instructions: We have drained your abscess today. I have also prescribed an antibiotic to cover for your urinary infection as well as residual skin infection. Please start the antibiotic as soon as you pick it up and take twice daily with food. In addition, please take the once daily anti-inflammatory pain medicine meloxicam as needed. As we talked about, you should monitor for worsening redness, swelling, new fever etc both on the lesion we drained and also the 1 on your left arm that did not need to be drained today. You should return if any of these occur, or if you have any worsening urinary symptoms or new symptoms such as vomiting while we are waiting for your urine culture to come back. Please continue your Suboxone, best wishes for successful treatment Prescriptions: New amoxicillin-pot clavulanate [Augmentin] 875-125 mg tablet 1 tab PO Q12H Qty: 14 RF: 0 meloxicam [Mobic] 7.5 mg tablet 7.5 mg PO DAILY Qty: 14 RF: 0 No Action ondansetron 4 mg tablet,disintegrating 4 mg PO BID PRN (Reason: nausea and vomiting) Qty: 10 RF: 0 buprenorphine-naloxone [Suboxone] 8-2 mg film 2 film Sublingual DAILYX7 RF: 0 clindamycin HCl 300 mg capsule 300 mg PO QID Qty: 40 RF: 0 sertraline [Zoloft] 100 MG tablet 150 mg PO QAM RF: 0 acetaminophen 500 mg tablet 500 mg PO Q6H PRN (Reason: pain) Qty: 30 RF: 0 Referrals: [facility] [Other]
[2019-03-31] MEDS: IBUPROFEN 400 MG TABLET 800 MG PO (16:26)
[2019-03-31] MEDS: LIDOCAINE 1% W/EPI 1 ML SUBCUT (16:27)
[2019-03-31 16:33] LABS: RBC Urine None Seen (0-5/HPF)
[2019-03-31 16:39] LABS: Amorphous Sediment Urine 1+; Bacteria Urine Many (>30); Culture Indicated Urine Specimen Cultured; Squamous Epithelial Cell Urine 1-5 /HPF (0-5/HPF); WBC Urine 5-10/HPF (0-5/HPF)
--- NOTE | 2019-03-31 16:39 | PC.NURSE ---
I&D performed by Ulises AHMADI
[2019-03-31] MEDS: BACITRACIN OINT 0.9 GM PCKT 5 APPLIC TOP (17:00)
[2019-03-31 17:10] VITALS: BP 112/71; PULSE 79; RESP 16; O2SAT 98
== END 2019-03-31 17:11 | disposition home or self-care (01) ==
PROVIDERS: Emergency Provider Internal Medicine
DX: L03.113 Cellulitis of right upper limb (principal); L02.413 Cutaneous abscess of right upper limb; N30.00 Acute cystitis without hematuria; F11.10 Opioid abuse, uncomplicated
CPT/HCPCS: 10060; 81003; 81015; 81025; 87077; 87086; 87186; 99282; 99283

== ENCOUNTER 2019-04-01 16:04 | Emergency (ER) | payer OTHER, MEDICAID, SELFPAY ==
[2019-04-01 16:13] VITALS: BP 98/62; PULSE 66; RESP 18; TEMP 36.2; O2SAT 99; BMI 22.1
[2019-04-01 17:34] VITALS: BP 110/68; PULSE 88; RESP 16; TEMP 37
--- NOTE | 2019-04-01 18:34 | ED_ITS ---
HPI - Wound/Laceration <JOSIE Doran - Last Filed: 04/01/19 18:37> General Chief Complaint: Wound/Laceration Stated Complaint: sore on her face ruptured and getting worse Time Seen by Provider: 04/01/19 16:36 Source: patient Mode of arrival: Ambulatory Limitations: no limitations History of Present Illness HPI narrative: The patient is a 33-year-old female current smoker well known to this department with history of IV drug use who presents with chief complaint of a sore on her face that ruptured and is getting worse. She denies any fevers nausea vomiting or diarrhea. She states that it occurred on her right cheek. She states that she was at this facility yesterday for another abscess, had an I and D and was started on Augmentin. Related Data Home Medications Medication Instructions Recorded Confirmed sertraline [Zoloft] 150 mg PO QAM 04/06/18 10/27/18 buprenorphine-naloxone [Suboxone] 2 film SUBLINGUAL DAILYX7 07/23/18 10/27/18 Previous Rx's Medication Instructions Recorded acetaminophen 500 mg PO Q6H PRN #30 tab 05/22/18 ondansetron 4 mg disintegrating 4 mg PO BID PRN #10 tab 10/27/18 tablet clindamycin HCl 300 mg PO QID #40 cap 03/09/19 amoxicillin-pot clavulanate 1 tab PO Q12H #14 tab 03/31/19 [Augmentin] meloxicam [Mobic] 7.5 mg PO DAILY #14 tab 03/31/19 Allergies Allergy/AdvReac Type Severity Reaction Status Date / Time Sulfa (Sulfonamide Allergy Verified 03/31/19 15:43 Antibiotics) Review of Systems <JOSIE Doran - Last Filed: 04/01/19 18:37> Review of Systems Narrative: GENERAL: Denies chills, fatigue, malaise, fever, sweats. HEENT: Denies sinus pain, ear pain, sore throat, difficulty swallowing, dizziness. RESPIRATORY: Denies dyspnea, cough, wheezing, hemoptysis, sputum. CARDIOVASCULAR: Denies chest pain, palpitations, orthopnea, edema, GASTROINTESTINAL: Denies nausea, vomiting, abdominal pain, diarrhea, constipation, melena. : Denies dysuria, frequency, incontinence, hematuria, urinary retention. MUSCULOSKELETAL: denies weakness, joint pain, or bony pain SKIN: See HPI NEUROLOGIC: Denies weakness, headache, numbness, change in speech, confusion, seizures, incoordination. PSYCHIATRIC: No concerning psychosocial issues. 12 point review of systems is negative except for those stated above Patient History <Katherin AmayaJOSIE sung - Last Filed: 04/01/19 18:37> Social History Smoking Status: Current every day smoker alcohol intake: current substance use type: heroin and IV drugs alcohol intake frequency: holidays/special occasions only Substance Use Type: heroin Exam <Katherin AmayaJOSIE sung - Last Filed: 04/01/19 18:37> Narrative Exam Narrative: GENERAL: Thin female no acute distress HEAD: Atraumatic. Normocephalic. No temporal or scalp tenderness. EYES: Pupils equal round and reactive. Extraocular motions intact. No scleral icterus. No injection or drainage. ENT: Nose without bleeding, purulent drainage or septal hematoma. Throat without erythema, tonsillar hypertrophy or exudate. Uvula midline. Airway patent. NECK: Trachea midline. No JVD or lymphadenopathy. Supple, nontender, no meningeal signs. CARDIOVASCULAR: Regular rate and rhythm without murmurs, gallops, or rubs. RESPIRATORY: Clear to auscultation. Breath sounds equal bilaterally. No wheezes, rales, or rhonchi. No cough. No increased respiratory effort GASTROINTESTINAL: Abdomen soft, non-tender, nondistended. No hepato- splenomegaly, or palpable masses. No guarding. EXTREMITIES: No clubbing, cyanosis, or edema. No joint tenderness, effusion, or edema noted. BACK: Nontender without deformity or crepitance. No flank tenderness. NEURO: AOx3. SKIN: Scabs and lesions bilateral forearms, 1 cm wound noted on right cheek. Granulation tissue noted. No extending erythema from cheek wound. Initial Vital Signs Initial Vital Signs: Vital Signs Temperature 97.2 F L 04/01/19 16:13 Pulse Rate 66 04/01/19 16:13 Respiratory Rate 18 04/01/19 16:13 Blood Pressure 98/62 04/01/19 16:13 Pulse Oximetry 99 04/01/19 16:13 <Flakita Rashid DO - Last Filed: 04/02/19 07:33> Initial Vital Signs Initial Vital Signs: Vital Signs Temperature 97.2 F L 04/01/19 16:13 Pulse Rate 66 04/01/19 16:13 Respiratory Rate 18 04/01/19 16:13 Blood Pressure 98/62 04/01/19 16:13 Pulse Oximetry 99 04/01/19 16:13 Course <JOSIE Doran - Last Filed: 04/01/19 18:37> Orders Ordered: ED Orders 04/01/19 17:00 Wound Culture and Gram Stain Stat Vital Signs Vital signs: Vital Signs - 8 hr 04/01/19 16:13 04/01/19 17:34 Temperature 97.2 F L 98.6 F Pulse Rate 66 88 Respiratory Rate 18 16 Blood Pressure 98/62 110/68 Pulse Oximetry 99 <Flakita Rashid DO - Last Filed: 04/02/19 07:33> Orders Ordered: ED Orders 04/01/19 17:00 Wound Culture and Gram Stain Stat Vital Signs Vital signs: Vital Signs - 8 hr 04/01/19 16:13 04/01/19 17:34 Temperature 97.2 F L 98.6 F Pulse Rate 66 88 Respiratory Rate 18 16 Blood Pressure 98/62 110/68 Pulse Oximetry 99 MDM - Wound/Laceration <JOSIE Doran - Last Filed: 04/01/19 18:37> MDM Narrative Medical decision making narrative: The patient is a 33-year-old female known to this department presents with a chief complaint of a wound on her face. She was started on Augmentin yesterday. Wound culture was taken, I will not increase her antibiotics at this point into wound culture returns. She has no signs of systemic illness, no vomiting or fever. Discussed at length following up with primary care provider. Discussed come back to the emergency department for any acute concerns such as and we keep down fluids. Patient has no questions or concerns upon discharge and states understanding return precautions as well as follow-up care Discharge Plan Departure Patient Disposition: Home Clinical Impression: Open facial wound Qualifiers: Encounter type: initial encounter Qualified Code(s): S01.80XA - Unspecified open wound of other part of head, initial encounter Discharge Date/Time: 04/01/19 17:35 Instructions: DI for Wound Infection Activity Restrictions/Additional Instructions: Please continue to take the Augmentin your prescribed yesterday your wound culture results will be available in 48-72 hours. We will contact You if we have to add antibiotics. Please monitor for fever vomiting diarrhea and signs of systemic infection. Please come back to the emergency department if needed. Prescriptions: No Action ondansetron 4 mg tablet,disintegrating 4 mg PO BID PRN (Reason: nausea and vomiting) Qty: 10 RF: 0 buprenorphine-naloxone [Suboxone] 8-2 mg film 2 film Sublingual DAILYX7 RF: 0 clindamycin HCl 300 mg capsule 300 mg PO QID Qty: 40 RF: 0 amoxicillin-pot clavulanate [Augmentin] 875-125 mg tablet 1 tab PO Q12H Qty: 14 RF: 0 meloxicam [Mobic] 7.5 mg tablet 7.5 mg PO DAILY Qty: 14 RF: 0 sertraline [Zoloft] 100 MG tablet 150 mg PO QAM RF: 0 acetaminophen 500 mg tablet 500 mg PO Q6H PRN (Reason: pain) Qty: 30 RF: 0
== END 2019-04-01 17:35 | disposition home or self-care (01) ==
PROVIDERS: Emergency Provider Nurse Practitioner Family
DX: S01.80XA Unspecified open wound of other part of head, initial encounter (principal)
CPT/HCPCS: 87070; 87075; 87077; 87147; 87186; 87205; 99282; 99283

== ENCOUNTER 2019-04-19 18:54 | Emergency (ER) | payer OTHER, MEDICAID, SELFPAY ==
[2019-04-19 18:56] VITALS: BP 103/67; PULSE 83; RESP 14; TEMP 37.3; O2SAT 97
--- NOTE | 2019-04-19 19:17 | ED.SKABFB ---
HPI - Skin/Abscess/Foreign Bdy General Chief complaint: Skin/Abscess/Foreign Body Stated complaint: states abscess on rt arm Time Seen by Provider: 04/19/19 19:17 Source: patient Mode of arrival: Ambulatory Limitations: no limitations History of Present Illness HPI narrative: Patient is a 34-year-old female. Is an IV drug user. Here for evaluation of an abscess in her right arm. She states she did shoot up in this area approximately 7 days ago. She has had abscesses in the past that if needed drained. She has not tried anything for this prior to arrival. Upon my initial evaluation she then pointed out another area on her left arm that she was concerned about an abscess as well. Related Data Home Medications Medication Instructions Recorded Confirmed sertraline [Zoloft] 150 mg PO QAM 04/06/18 10/27/18 buprenorphine-naloxone [Suboxone] 2 film SUBLINGUAL DAILYX7 07/23/18 10/27/18 Previous Rx's Medication Instructions Recorded acetaminophen 500 mg PO Q6H PRN #30 tab 05/22/18 ondansetron 4 mg disintegrating 4 mg PO BID PRN #10 tab 10/27/18 tablet clindamycin HCl 300 mg PO QID #40 cap 03/09/19 amoxicillin-pot clavulanate 1 tab PO Q12H #14 tab 03/31/19 [Augmentin] meloxicam [Mobic] 7.5 mg PO DAILY #14 tab 03/31/19 doxycycline hyclate 100 mg PO BID 7 Days #14 tab 04/19/19 Allergies Allergy/AdvReac Type Severity Reaction Status Date / Time Sulfa (Sulfonamide Allergy Verified 03/31/19 15:43 Antibiotics) Review of Systems Constitutional Constitutional: Denies fever(s) Cardiovascular Cardiovascular: Denies dyspnea Respiratory Respiratory: Denies dyspnea Musculoskeletal Musculoskeletal: Denies myalgias and Denies arthralgias Integumentary/Breasts Comments: Very concerning for an abscess right arm and left arm Hematologic/Lymphatic Hematologic/Lymphatic: Denies easy bleeding and Denies easy bruising Patient History Medical History Drug abuse (Acute) Surgical History No pertinent past surgical history (Acute) Social History (Reviewed 12/11/19 @ 02:42 by KATHARINE Judge Smoking Status: Current every day smoker alcohol intake: current substance use type: heroin and IV drugs Smoking Status: Current every day smoker alcohol intake frequency: holidays/special occasions only Substance Use Type: heroin Exam Initial Vital Signs Initial Vital Signs: Vital Signs Temperature 99.2 F 04/19/19 18:56 Pulse Rate 83 04/19/19 18:56 Respiratory Rate 14 04/19/19 18:56 Blood Pressure 103/67 04/19/19 18:56 Pulse Oximetry 97 04/19/19 18:56 Const General: cooperative and comfortable Orientation: alert, awake and oriented x3 HENMT Head: normal to inspection and normocephalic Resp Effort & Inspection: normal respiratory effort Cardio Rate: regular rate Skin Other: Patient with a 5 cm x 5 cm area in the right AC with fluctuance and overlying erythema. Patient with a 3 cm x 2 cm area on the ulnar/volar aspect of the left forearm consistent with a abscess as well Neuro General: alert and awake Speech: speech normal Gait: normal gait Sensory Exam: no sensory deficits noted Extrem General: normal to inspection, capillary refill normal and No edema Procedures Abscess I/D Site: upper extremity Side (if applicable): right Local Anesthetic: lidocaine 1% Amount of anesthesia used (mL): 3 Technique: incised with #11 blade Irrigation: No Packing used?: iodoform Course Orders Ordered: Discontinued Medications Lidocaine HCl (Xylocaine 1% (Pf)) 4 ml INJ NOW ONE Stop: 04/19/19 19:20 Vital Signs Vital signs: Vital Signs - 8 hr 04/19/19 18:56 Temperature 99.2 F Pulse Rate 83 Respiratory Rate 14 Blood Pressure 103/67 Pulse Oximetry 97 MDM - Skin/Abscess/Foreign Bdy MDM Narrative Medical decision making narrative: Patient is nontoxic appearing. Bedside ultrasound does show abscess is in the right AC and on the left forearm. They were drained as described above. Packing was placed in the right AC given the depth of the wound. There was also a 3rd area on her left forearm that potentially look like the beginnings of an abscess. Given her clinical situation and her use of IV drugs I feel that starting her on some antibiotics is not unreasonable potentially to hold off this other area that potentially is an early abscess. Patient was very appreciative of the procedure. She was given return precautions and follow-up instructions. She expressed understanding and agreement plan. Discharge Plan Departure Patient Disposition: Home Clinical Impression: Abscess of skin or subcutaneous tissue Qualifiers: Site of cutaneous abscess: extremity Site of cutaneous abscess of extremity: upper extremity Laterality: unspecified laterality Qualified Code(s): L02.419 - Cutaneous abscess of limb, unspecified Discharge Date/Time: 04/19/19 20:10 Instructions: DI for Incision and Drainage of a Skin Abscess Activity Restrictions/Additional Instructions: Recommend that you contact your primary care provider for a follow up. If you do not have one you can call [phone]. Take the antibiotics as directed. The packing needs to be removed in 48 hours. Return to the ER for any new or worsenig symptoms. Prescriptions: New doxycycline hyclate 100 mg tablet 100 mg PO BID 7 Days Qty: 14 RF: 0 No Action ondansetron 4 mg tablet,disintegrating 4 mg PO BID PRN (Reason: nausea and vomiting) Qty: 10 RF: 0 buprenorphine-naloxone [Suboxone] 8-2 mg film 2 film Sublingual DAILYX7 RF: 0 clindamycin HCl 300 mg capsule 300 mg PO QID Qty: 40 RF: 0 amoxicillin-pot clavulanate [Augmentin] 875-125 mg tablet 1 tab PO Q12H Qty: 14 RF: 0 meloxicam [Mobic] 7.5 mg tablet 7.5 mg PO DAILY Qty: 14 RF: 0 sertraline [Zoloft] 100 MG tablet 150 mg PO QAM RF: 0 acetaminophen 500 mg tablet 500 mg PO Q6H PRN (Reason: pain) Qty: 30 RF: 0
== END 2019-04-19 20:10 | disposition home or self-care (01) ==
PROVIDERS: Emergency Provider Emergency Medicine
DX: L02.413 Cutaneous abscess of right upper limb (principal); F19.10 Other psychoactive substance abuse, uncomplicated
CPT/HCPCS: 10060; 99283

== ENCOUNTER 2019-05-08 17:30 | Emergency (ER) | payer OTHER, MEDICAID, SELFPAY ==
[2019-05-08] VITALS (9 sets, daily range): BP systolic 92–144; BP diastolic 50–99; PULSE 70–116; RESP 13–16; TEMP 36.6; O2SAT 97–100; BMI 22.1
--- NOTE | 2019-05-08 17:58 | DI.US.S_ITS ---
PROCEDURE: US EXTREMITY NONVASC UPPER LT INDICATIONS: ABSCESS EVAULATION, RULE OUT FISTULAS TECHNIQUE: Real-time scanning was performed of the left forearm, with image documentation. COMPARISON: [facility], EXTREMITY NONVASC UPPER LT, 03/23/2018, 23:30. FINDINGS: There is diffuse soft tissue swelling. There is a 6.8 x 2.5 x 5.8 cm complex, heterogeneous fluid collection in the left forearm distal to the open wound demonstrating peripherally increased vascularity, prosthesis for an abscess. Prominent lymph nodes are noted, likely reactive. IMPRESSION: 1. A complex fluid collection measuring 6.8 x 2.8 x 5.8 cm in the left forearm distal to an open wound with peripherally increased vascularity, consistent with an abscess. 2. Diffuse soft tissue swelling. 3. Reactive lymph nodes are noted. Dictated by: Vernon Olivas M.D. on 05/08/2019 at 18:51 Approved by: Vernon Olivas M.D. on 05/08/2019 at 18:56
--- NOTE | 2019-05-08 18:02 | ED_ITS ---
HPI - Skin/Abscess/Foreign Bdy General Chief complaint: Skin/Abscess/Foreign Body Stated complaint: Absess on left back arm Time Seen by Provider: 05/08/19 17:34 Source: patient Mode of arrival: Ambulatory History of Present Illness HPI narrative: 34-year-old female who is an IV heroin drug abuser and recently seen on 04/19/2019 for I&D a variety of abscesses, presents emergency department for left lower forearm abscess that started about a week ago after using drugs in this area. She also reports she occasionally uses meth. She also reports right sided abscess to her upper lip as well that developed 4 days ago. She denies fevers, chills, nausea, vomiting, diarrhea, abdominal pain, or other concerns. Patient states she last used a small dose of IV heroin this morning. She denies any other abscesses or concerns. Related Data Home Medications Medication Instructions Recorded Confirmed sertraline [Zoloft] 150 mg PO QAM 04/06/18 10/27/18 buprenorphine-naloxone [Suboxone] 2 film SUBLINGUAL DAILYX7 07/23/18 10/27/18 Previous Rx's Medication Instructions Recorded acetaminophen 500 mg PO Q6H PRN #30 tab 05/22/18 ondansetron 4 mg disintegrating 4 mg PO BID PRN #10 tab 10/27/18 tablet clindamycin HCl 300 mg PO QID #40 cap 03/09/19 amoxicillin-pot clavulanate 1 tab PO Q12H #14 tab 03/31/19 [Augmentin] meloxicam [Mobic] 7.5 mg PO DAILY #14 tab 03/31/19 clindamycin HCl 450 mg PO TID 10 Days #90 cap 05/08/19 doxycycline hyclate 100 mg PO BID 7 Days #14 tab 05/08/19 Allergies Allergy/AdvReac Type Severity Reaction Status Date / Time Sulfa (Sulfonamide Allergy Verified 03/31/19 15:43 Antibiotics) Review of Systems Review of Systems Narrative: REVIEW OF SYSTEMS: GENERAL: Denies fever or chills. HENT: Denies head trauma. EYE: Denies double vision or vision loss. CARDIOVASCULAR: Denies syncope. MUSCULOSKELETAL: Denies weakness, or deformities. INTEGUMENTARY: Reports abscess, see HPI. NEURO: Denies numbness or tingling. Patient History Medical History Drug abuse (Acute) Surgical History No pertinent past surgical history (Acute) Social History Smoking Status: Current every day smoker alcohol intake: current substance use type: heroin and IV drugs Smoking Status: Current every day smoker alcohol intake frequency: holidays/special occasions only Substance Use Type: heroin Exam Initial Vital Signs Initial Vital Signs: Vital Signs Temperature 97.9 F 05/08/19 17:34 Pulse Rate 80 05/08/19 17:34 Respiratory Rate 16 05/08/19 17:34 Blood Pressure 115/65 05/08/19 17:34 Pulse Oximetry 99 05/08/19 17:34 PHYSICAL EXAMINATION: GENERAL: Well groomed, alert, and cooperative. Answers questions promptly and appropriately. Vital signs noted. HENT: Normocephalic, atraumatic. Cardio: S1 and S2 sound her separately. No murmurs clicks or bruits. RESPIRATORY: Normal respiratory rate, trachea midline, airway patent. No stridor, nasal flaring or accessory muscle use. MUSCULOSKELETAL: Patient able to move all fingers on left inner and, restaurant area manager strength equal bilaterally, full range of motion of elbow and wrist against resistance, before and after exam. Normal gait and coordination. Equal tone and mass bilaterally. EXTREMITIES: CMS intact. Radial pulses 2+ and intact bilaterally before and after procedure. SKIN: Warm, dry, soft, appropriate color for ethnicity. There is approximately a 15cm x 10cm area of erythema, swelling, fluctuation noted to under side of left forearm. A 4 cm x 3 cm abscess to right upper lip, fluctuation, and surrounding erythema. NEURO: Alert and Oriented X 3. Good coordination. PSYCH: Appropriate affect and mood. Procedures Abscess I/D I&D #1: Site: face Side (if applicable): right Sedation/analgesia: other Local Anesthetic: lidocaine 1% Amount of anesthesia used (mL): 2 Technique: incised with #11 blade Amount of fluid expressed (mL): 3 Irrigation: Yes Packing used?: none I&D #2: Site: upper extremity Side (if applicable): left Sedation/analgesia: other Local Anesthetic: lidocaine 1% Amount of anesthesia used (mL): 4 Technique: incised with #11 blade Amount of fluid expressed (mL): 8 Irrigation: Yes Packing used?: plain Course Course Course Narrative: Patient given IV antibiotics, fluids, Toradol, and ketamine after discussion with Dr. Garcia. Patient remained awake and oriented x4 during the entire procedure. After verbal consent, Abscesses were incised and drained, patient tolerated procedure. Packing was placed to left forearm, wounds were dressed with gauze and tape. Orders Ordered: ED Orders 05/08/19 17:58 US extremity nonvasc upper lt Stat 05/08/19 18:45 Blood Culture Stat Complete Blood Count AUTO DIFF Stat Comprehensive Metabolic Panel Stat Lactate (Lactic Acid) Stat Procalcitonin Stat Discontinued Medications Ceftriaxone Sodium/Dextrose (Rocephin) 2 gm in 50 mls @ 100 mls/hr IV NOW ONE Stop: 05/08/19 18:51 Last Infusion: 05/08/19 19:41 Dose: 0 mls/hr Documented by: Admin: 05/08/19 18:58 Dose: 100 mls/hr Documented by: RAUL Vancomycin HCl (Vancomycin) 1,000 mg in 200 mls @ 200 mls/hr IV NOW ONE Stop: 05/08/19 19:21 Last Admin: 05/08/19 19:33 Dose: 200 mls/hr Documented by: RAUL Sodium Chloride (Normal Saline 0.9%) 1,000 mls @ 1,000 mls/hr IV BOLUS ONE Stop: 05/08/19 19:24 Last Infusion: 05/08/19 20:18 Dose: 0 mls/hr Documented by: Admin: 05/08/19 18:57 Dose: 1,000 mls/hr Documented by: RAUL Ketamine HCl (Ketalar) 25 mg IV NOW ONE Stop: 05/08/19 18:57 Last Admin: 05/08/19 19:08 Dose: 25 mg Documented by: RAUL Ketorolac Tromethamine (Toradol) 15 mg IV NOW ONE Stop: 05/08/19 18:57 Last Admin: 05/08/19 19:08 Dose: 15 mg Documented by: RAUL Lidocaine HCl (Xylocaine 1%) 10 ml INJ NOW ONE Stop: 05/08/19 19:04 Lidocaine/Sodium Bicarbonate (Buffered Lidocaine 10 Ml Syr) 10 ml INJ NOW ONE Stop: 05/08/19 19:09 Last Admin: 05/08/19 19:15 Dose: 10 ml Documented by: RAUL Reevaluation(s) Reevaluation #1: Patient was re-evaluated after procedure, radial pulses remain 2+ and intact. Patient able to move all left fingers and wrist after incision and drainage. Consultations Consultation #1: Patient staffed with Dr. Hussein and Dr. Garcia. Vital Signs Vital signs: Vital Signs - 8 hr 05/08/19 17:34 05/08/19 19:15 05/08/19 19:20 Temperature 97.9 F Pulse Rate 80 77 90 Respiratory Rate 16 16 16 Blood Pressure 115/65 Blood Pressure [Right Arm] 107/64 144/77 H Pulse Oximetry 99 100 99 05/08/19 19:24 05/08/19 19:25 05/08/19 19:30 Temperature Pulse Rate 106 H 116 H 95 H Respiratory Rate 16 15 16 Blood Pressure Blood Pressure [Right Arm] 137/81 116/99 H 127/68 Pulse Oximetry 100 99 100 05/08/19 19:39 05/08/19 19:45 05/08/19 20:11 Temperature Pulse Rate 78 76 70 Respiratory Rate 15 13 16 Blood Pressure Blood Pressure [Right Arm] 115/71 99/58 L 96/55 L Pulse Oximetry 100 100 97 MDM - Skin/Abscess/Foreign Bdy Medical Records Attestation: I reviewed the patient's medical records. Lab Data Attestation: I reviewed the patient's lab results. Result diagrams: 05/08/19 18:45 05/08/19 18:45 Labs: Lab Results 05/08/19 05/08/19 05/08/19 Range/Units 18:45 18:45 18:45 WBC 7.8 (4.5-11.0) X10^3/uL RBC 4.30 (4.0-5.2) X10^6/uL Hgb 12.1 (12.0-16.0) g/dL Hct 35.4 L (36-46) % MCV 82.3 (80-100) fL MCH 28.1 (26-34) PG MCHC 34.2 (30-36) % RDW 13.5 (11.6-14.8) % Plt Count 298 (150-400) X10^3/uL Neut % (Auto) 64.0 (50-75) % Lymph % (Auto) 24.5 L (25-40) % Wilkes % (Auto) 7.8 (3-14) % Eos % (Auto) 3.2 (2-4) % Baso % (Auto) 0.5 (0-2) % Neut # (Auto) 5000 (7282-7590) /uL Lymph # (Auto) 1900 (3836-3097) /uL Wilkes # (Auto) 600 (0-900) /uL Eos # (Auto) 200 (0-450) /uL Baso # (Auto) 0 (0-100) /uL Sodium 138 (137-145) mmol/L Potassium 3.9 (3.4-5.1) mmol/L Chloride 100 (98-107) mmol/L Carbon Dioxide 31 (22-32) mmol/L BUN 11 (7-17) mg/dL Creatinine 0.60 (0.52-1.04) mg/dL Estimated GFR > 60.0 (>60) mL/min BUN/Creatinine Ratio 18.3 (6-22) Glucose 90 (70-100) mg/dL Lactate (0.7-2.1) mmol/L Calcium 8.7 (8.4-10.2) mg/dL Total Bilirubin 0.2 (0.2-1.3) mg/dL AST 19 (14-36) IU/L ALT 13 (<35) IU/L Alkaline Phosphatase 96 (38-126) U/L Total Protein 7.2 (6.3-8.2) g/dL Albumin 4.0 (3.5-5.0) g/dL Globulin 3.2 (1.7-4.1) g/dL Albumin/Globulin Ratio 1.3 (1.0-2.8) Procalcitonin < 0.05 (<0.5) ng/mL 05/08/19 Range/Units 18:45 WBC (4.5-11.0) X10^3/uL RBC (4.0-5.2) X10^6/uL Hgb (12.0-16.0) g/dL Hct (36-46) % MCV (80-100) fL MCH (26-34) PG MCHC (30-36) % RDW (11.6-14.8) % Plt Count (150-400) X10^3/uL Neut % (Auto) (50-75) % Lymph % (Auto) (25-40) % Wilkes % (Auto) (3-14) % Eos % (Auto) (2-4) % Baso % (Auto) (0-2) % Neut # (Auto) (7643-8872) /uL Lymph # (Auto) (5663-8658) /uL Wilkes # (Auto) (0-900) /uL Eos # (Auto) (0-450) /uL Baso # (Auto) (0-100) /uL Sodium (137-145) mmol/L Potassium (3.4-5.1) mmol/L Chloride (98-107) mmol/L Carbon Dioxide (22-32) mmol/L BUN (7-17) mg/dL Creatinine (0.52-1.04) mg/dL Estimated GFR (>60) mL/min BUN/Creatinine Ratio (6-22) Glucose (70-100) mg/dL Lactate 1.3 (0.7-2.1) mmol/L Calcium (8.4-10.2) mg/dL Total Bilirubin (0.2-1.3) mg/dL AST (14-36) IU/L ALT (<35) IU/L Alkaline Phosphatase (38-126) U/L Total Protein (6.3-8.2) g/dL Albumin (3.5-5.0) g/dL Globulin (1.7-4.1) g/dL Albumin/Globulin Ratio (1.0-2.8) Procalcitonin (<0.5) ng/mL Imaging Data US LUE: Radiologist's Impression: [address] [address] Ultrasound Report Signed Patient: Macarena Banuelos [facility]#: [id number] : 1985Acct:[id number] Age/Sex: 34 / FDate of Service: 05/08/19 Loc: ED Accession Number: [id number] Procedure: US extremity nonvasc upper lt Ordering Provider: Jerri Aldana PROCEDURE: US EXTREMITY NONVASC UPPER LT INDICATIONS: ABSCESS EVAULATION, RULE OUT FISTULAS TECHNIQUE: Real-time scanning was performed of the left forearm, with image documentation. COMPARISON: [facility], US, US EXTREMITY NONVASC UPPER LT, 03/23/2018, 23:30. FINDINGS: There is diffuse soft tissue swelling. There is a 6.8 x 2.5 x 5.8 cm complex, heterogeneous fluid collection in the left forearm distal to the open wound demonstrating peripherally increased vascularity, prosthesis for an abscess. Prominent lymph nodes are noted, likely reactive. IMPRESSION: 1. A complex fluid collection measuring 6.8 x 2.8 x 5.8 cm in the left forearm distal to an open wound with peripherally increased vascularity, consistent with an abscess. 2. Diffuse soft tissue swelling. 3. Reactive lymph nodes are noted. Dictated by: Vernon Olivas M.D. on 05/08/2019 at 18:51 Approved by: Vernon Olivas M.D. on 05/08/2019 at 18:56 MDM Narrative Medical decision making narrative: This is a 34-year-old female history of IV drug use who presents emergency department for an abscess on her left forearm and right side of her face. He has abscesses were incised and drained after evaluation via ultrasound. Patient tolerated this procedure well, see notes above. Patient was given oral antibiotics to take home after dose of IV antibi otics in the emergency department due to significant surrounding cellulitis. Double MRSA coverage was initiated per suggestion of attending. Patient was instructed to keep the wounds clean and dry. She was instructed to follow up with her primary care provider in 1-2 weeks for re-evaluation. She was counseled extensively about worsening signs of infection such as increased redness or high fevers, she was instructed to return emergency department if these develop. Patient was given information to establish a primary care provider. She was discharged after she was fully alert and awake drinking fluids. Discharge Plan Departure Patient Disposition: Home Clinical Impression: Abscess Discharge Date/Time: 05/08/19 20:53 Instructions: DI for Cellulitis -- Adult, DI for Skin Abscess Activity Restrictions/Additional Instructions: Thank you for entrusting me with your care today. As discussed, a abscess was lanced on your face and left forearm. There was packing placed in your left f orearm, you can remove this in 3 days. You been given a dose of IV antibiotics and have been given a prescription for continued antibiotic therapy. Please follow up with her primary care provider this week for re-evaluation. Return emergency department for new or worsening symptoms such as high fevers, other abscesses, uncontrollable vomiting, abdominal pain, or other concerns. Prescriptions: New doxycycline hyclate 100 mg tablet 100 mg PO BID 7 Days Qty: 14 RF: 0 clindamycin HCl 150 mg capsule 450 mg PO TID 10 Days Qty: 90 RF: 0 No Action ondansetron 4 mg tablet,disintegrating 4 mg PO BID PRN (Reason: nausea and vomiting) Qty: 10 RF: 0 buprenorphine-naloxone [Suboxone] 8-2 mg film 2 film Sublingual DAILYX7 RF: 0 clindamycin HCl 300 mg capsule 300 mg PO QID Qty: 40 RF: 0 amoxicillin-pot clavulanate [Augmentin] 875-125 mg tablet 1 tab PO Q12H Qty: 14 RF: 0 meloxicam [Mobic] 7.5 mg tablet 7.5 mg PO DAILY Qty: 14 RF: 0 sertraline [Zoloft] 100 MG tablet 150 mg PO QAM RF: 0 acetaminophen 500 mg tablet 500 mg PO Q6H PRN (Reason: pain) Qty: 30 RF: 0
[2019-05-08 18:54] LABS: Add Manual Diff / Slide Review NO; Basophils Absolute Auto 0 /uL (0-100); Basophils Percent Auto 0.5 % (0-2); Eosinophils Absolute Auto 200 /uL (0-450); Eosinophils Percent Auto 3.2 % (2-4); Hematocrit 35.4 % (36-46); Hemoglobin 12.1 g/dL (12.0-16.0); Lymphocytes Absolute Auto 1900 /uL (1100-4500); Lymphocytes Percent Auto 24.5 % (25-40); Mean Corpuscular HGB Conc 34.2 % (30-36); Mean Corpuscular Hemoglobin 28.1 PG (26-34); Mean Corpuscular Volume 82.3 fL (80-100); Monocytes Absolute Auto 600 /uL (0-900); Monocytes Percent Auto 7.8 % (3-14); Neutrophils Absolute Auto 5000 /uL (1500-7000); Platelet Count 298 X10^3/uL (150-400); Red Cell Distribution Width 13.5 % (11.6-14.8); White Blood Cell Count 7.8 X10^3/uL (4.5-11.0)
[2019-05-08] MEDS: SODIUM CHLORIDE 0.9% 1,000 ML 1000 ML IV (18:57)
[2019-05-08] MEDS: CEFTRIAXONE 2 GM/50 ML FROZ.PIGGY IV (18:58)
[2019-05-08 19:04] LABS: Alanine Aminotransferase 13 IU/L (<35); Albumin Globulin Ratio 1.3 (1.0-2.8); Alkaline Phosphatase 96 U/L (38-126); Aspartate Aminotransferase 19 IU/L (14-36); BUN Creatinine Ratio 18.3 (6-22); Bilirubin Total 0.2 mg/dL (0.2-1.3); Blood Urea Nitrogen 11 mg/dL (7-17); Calcium 8.7 mg/dL (8.4-10.2); Carbon Dioxide 31 mmol/L (22-32); Chloride 100 mmol/L (98-107); Estimated Glomerular Filt Rate > 60.0 mL/min (>60); Globulin 3.2 g/dL (1.7-4.1); Glucose 90 mg/dL (70-100); HEMOLYSIS < 15 (0-50); Potassium 3.9 mmol/L (3.4-5.1); Sodium 138 mmol/L (137-145); Total Protein 7.2 g/dL (6.3-8.2)
[2019-05-08 19:05] LABS: Lactate (Lactic Acid) 1.3 mmol/L (0.7-2.1)
[2019-05-08] MEDS: KETOROLAC 60 MG/2 ML VIAL 15 MG IV (19:08)
[2019-05-08] MEDS: KETAMINE 500 MG/5 ML INJ 25 MG IV (19:08)
[2019-05-08] MEDS: LIDO 1%/SOD BICARB 8.4% (10ML) 10 ML SYRINGE INJ (19:15)
[2019-05-08 19:21] LABS: Procalcitonin < 0.05 ng/mL (<0.5)
[2019-05-08] MEDS: VANCOMYCIN 1,000 MG/200 ML PIGGYBACK 200 MG IV (19:33)
== END 2019-05-08 20:53 | disposition home or self-care (01) ==
PROVIDERS: Emergency Provider Nurse Practitioner
DX: L02.414 Cutaneous abscess of left upper limb (principal); L02.01 Cutaneous abscess of face; F11.10 Opioid abuse, uncomplicated; F15.10 Other stimulant abuse, uncomplicated
CPT/HCPCS: 10061; 36415; 76882; 80053; 83605; 84145; 85025; 87040; 96365; 96367; 96375; 99284; J0696; J1885

== ENCOUNTER 2019-06-30 18:38 | Emergency (ER) | payer OTHER, MEDICAID, SELFPAY ==
[2019-06-30 18:44] VITALS: BP 128/64; PULSE 99; RESP 16; TEMP 36.7; O2SAT 98; BMI 23.1
--- NOTE | 2019-06-30 19:10 | ED.SKABFB ---
HPI - Skin/Abscess/Foreign Bdy General Chief complaint: Skin/Abscess/Foreign Body Stated complaint: states two abcesses on her right arm Time Seen by Provider: 06/30/19 19:07 Source: patient Mode of arrival: Ambulatory Limitations: no limitations History of Present Illness HPI narrative: 34-year-old female. Known IV drug abuser who I have seen here in the emergency department in the past for abscesses in her upper extremities here for evaluation of 2 abscesses in her right upper extremity. One is in her forearm. She states that she did shoot up in this area. One is up in her inner upper arm. She states she did not shoot up in this area. Has not tried anything for the symptoms prior to arrival Related Data Home Medications Medication Instructions Recorded Confirmed sertraline [Zoloft] 150 mg PO QAM 04/06/18 10/27/18 buprenorphine-naloxone [Suboxone] 2 film SUBLINGUAL DAILYX7 07/23/18 10/27/18 Previous Rx's Medication Instructions Recorded acetaminophen 500 mg PO Q6H PRN #30 tab 05/22/18 ondansetron 4 mg disintegrating 4 mg PO BID PRN #10 tab 10/27/18 tablet clindamycin HCl 300 mg PO QID #40 cap 03/09/19 amoxicillin-pot clavulanate 1 tab PO Q12H #14 tab 03/31/19 [Augmentin] meloxicam [Mobic] 7.5 mg PO DAILY #14 tab 03/31/19 Allergies Allergy/AdvReac Type Severity Reaction Status Date / Time Sulfa (Sulfonamide Allergy Verified 06/30/19 18:44 Antibiotics) Review of Systems Constitutional Constitutional: Denies fever(s) Integumentary/Breasts Comments: 2 abscesses right upper extremity Neurologic Neurologic: Denies behavioral changes Psychiatric Psychiatric: Denies anxiety and Denies behavioral changes Patient History Medical History Drug abuse (Acute) Social History Smoking Status: Current every day smoker alcohol intake: current substance use type: heroin and IV drugs Smoking Status: Current every day smoker alcohol intake frequency: holidays/special occasions only Substance Use Type: heroin Exam Initial Vital Signs Initial Vital Signs: Vital Signs Temperature 98.1 F 02/20/20 18:44 Pulse Rate 99 H 06/30/19 18:44 Respiratory Rate 16 06/30/19 18:44 Blood Pressure 128/64 06/30/19 18:44 Pulse Oximetry 98 06/30/19 18:44 Const General: cooperative and comfortable Limitations: mental status not altered Skin Other: Multiple wounds bilateral upper extremities consistent with IV drug abuse. They are in various stages of healing. She is 1 abscess in her right forearm on the volar aspect and 1 abscess in the medial aspect of the right upper arm near the axilla. No surrounding erythema. No drainage Neuro General: alert, awake and oriented x3 Extrem General: normal to inspection and capillary refill normal Psych Appearance: grossly normal and well kempt Procedures Abscess I/D I&D #1: Site: upper extremity (Volar aspect right forearm) Side (if applicable): right Local Anesthetic: lidocaine 1% and with epi Amount of anesthesia used (mL): 4 Technique: incised with #11 blade Irrigation: No Packing used?: none I&D #2: Site: upper extremity (Near axilla) Side (if applicable): right Local Anesthetic: lidocaine 1% and with epi Amount of anesthesia used (mL): 5 Technique: incised with #11 blade Irrigation: No Packing used?: none Course Vital Signs Vital signs: Vital Signs - 8 hr 06/30/19 18:44 Temperature 98.1 F Pulse Rate 99 H Respiratory Rate 16 Blood Pressure 128/64 Pulse Oximetry 98 MDM - Skin/Abscess/Foreign Bdy MDM Narrative Medical decision making narrative: Two abscesses right upper extremity without surrounding erythema. They were drained is described above. Patient is afebrile. Given the lack of surrounding erythema feel we can hold on antibiotics has a incision and drainage should be sufficient for this. Patient was given return precautions and follow-up instructions. She was also given care instructions. She expressed understanding and agreement with plan. Discharge Plan Departure Patient Disposition: Home Clinical Impression: Abscess Discharge Date/Time: 06/30/19 19:36 Instructions: DI for Skin Abscess Activity Restrictions/Additional Instructions: Expect some oozing from the area. Keep it covered with a bandage like we discussed. I highly encourage you to continue to work on getting back into the addiction clinics. Return to the emergency department for any new or worsening symptoms. Prescriptions: No Action ondansetron 4 mg tablet,disintegrating 4 mg PO BID PRN (Reason: nausea and vomiting) Qty: 10 RF: 0 buprenorphine-naloxone [Suboxone] 8-2 mg film 2 film Sublingual DAILYX7 RF: 0 clindamycin HCl 300 mg capsule 300 mg PO QID Qty: 40 RF: 0 amoxicillin-pot clavulanate [Augmentin] 875-125 mg tablet 1 tab PO Q12H Qty: 14 RF: 0 meloxicam [Mobic] 7.5 mg tablet 7.5 mg PO DAILY Qty: 14 RF: 0 sertraline [Zoloft] 100 MG tablet 150 mg PO QAM RF: 0 acetaminophen 500 mg tablet 500 mg PO Q6H PRN (Reason: pain) Qty: 30 RF: 0
== END 2019-06-30 19:36 | disposition home or self-care (01) ==
PROVIDERS: Emergency Provider Emergency Medicine
DX: L02.413 Cutaneous abscess of right upper limb (principal)
CPT/HCPCS: 10061; 99281; 99283

== ENCOUNTER 2019-07-06 20:04 | Emergency (ER) | payer OTHER, MEDICAID, SELFPAY ==
[2019-07-06 20:10] VITALS: BP 125/64; PULSE 76; RESP 14; TEMP 36.7; O2SAT 99; BMI 23.1
--- NOTE | 2019-07-06 21:30 | ED_ITS ---
HPI - Skin/Abscess/Foreign Bdy General Chief complaint: Skin/Abscess/Foreign Body Stated complaint: skin rash Time Seen by Provider: 07/06/19 21:30 Source: patient Mode of arrival: Ambulatory History of Present Illness HPI narrative: 34-year-old woman with a history of opiate use disorder as well as methamphetamine use disorder currently homeless and a return to use. Has been on Suboxone in the past. Presents with 3 day history of itchy rash mostly over the upper extremities. Related Data Home Medications Medication Instructions Recorded Confirmed sertraline [Zoloft] 150 mg PO QAM 04/06/18 10/27/18 buprenorphine-naloxone [Suboxone] 2 film SUBLINGUAL DAILYX7 07/23/18 10/27/18 Previous Rx's Medication Instructions Recorded acetaminophen 500 mg PO Q6H PRN #30 tab 05/22/18 ondansetron 4 mg disintegrating 4 mg PO BID PRN #10 tab 10/27/18 tablet clindamycin HCl 300 mg PO QID #40 cap 03/09/19 amoxicillin-pot clavulanate 1 tab PO Q12H #14 tab 03/31/19 [Augmentin] meloxicam [Mobic] 7.5 mg PO DAILY #14 tab 03/31/19 permethrin 1 applictn TOP Q14D #60 gram 07/06/19 Allergies Allergy/AdvReac Type Severity Reaction Status Date / Time Sulfa (Sulfonamide Allergy Verified 07/06/19 20:10 Antibiotics) Review of Systems Review of Systems Narrative: Not yet interested in returning to Suboxone or methadone use but is aware of resources. Does not complain of fevers or abscesses has multiple small abscesses from IM use of injectable drugs. Denies cough, chills, nausea, vomiting, diarrhea. Remainder of review is otherwise unremarkable Patient History Social History Smoking Status: Current every day smoker alcohol intake: current substance use type: heroin and IV drugs Smoking Status: Current every day smoker alcohol intake frequency: holidays/special occasions only Substance Use Type: heroin Exam Narrative Exam Narrative: General: Chronically ill-appearing with evidence of multiple superficial infections from ?skin popping? IV drug use without obvious cellulitis or large abscesses. Able to give a complete history. Cooperative but appears intoxicated with pinpoint pupils. HEENT: Moist mucous membranes Neck: No JVD, supple Skin: Sequelae of injection drug use, minor areas of scabs from ?picking? associated with methamphetamine use, she has trial is a small scabs in the web of areas of her hands and excoriated areas from scratching of the dorsal surface of her arms consistent with scabies Neurologic: Grossly neurologically intact with no obvious asymmetries or abnormalities Initial Vital Signs Initial Vital Signs: Vital Signs Temperature 98.0 F 07/06/19 20:10 Pulse Rate 76 07/06/19 20:10 Respiratory Rate 14 07/06/19 20:10 Blood Pressure 125/64 07/06/19 20:10 Pulse Oximetry 99 07/06/19 20:10 Course Vital Signs Vital signs: Vital Signs - 8 hr 07/06/19 20:10 Temperature 98.0 F Pulse Rate 76 Respiratory Rate 14 Blood Pressure 125/64 Pulse Oximetry 99 MDM - Skin/Abscess/Foreign Bdy Medical Records Attestation: I reviewed the patient's medical records. MDM Narrative Medical decision making narrative: Scabies in the setting of homelessness and ongoing IV drug use. I offered her social insurance administrator and assistance but she declined. She and her partner are both aware of [facility] as well as ideal option should they be interested in addressing their opiate addiction. When over suggestions for preventing recurrence scabies infections for both she and her partner Discharge Plan Departure Patient Disposition: Home Clinical Impression: Scabies, Opioid use disorder Instructions: DI for Scabies Activity Restrictions/Additional Instructions: Scabies can be very challenging to get rid of. Please refer to all the instructions included with the printed discharge. If you are able to wash all of your clothing and bedding the same time you are most likely to prevent recurrent infections. I did offer help to deal with your opiate use disorder. It sounds like you are familiar with both [facility] and [facility] as resources. I hope you choose to follow-up with 1 of these. I wish you the best Prescriptions: New permethrin 5 % cream 1 applictn TOP Q14D Qty: 60 RF: 0 No Action ondansetron 4 mg tablet,disintegrating 4 mg PO BID PRN (Reason: nausea and vomiting) Qty: 10 RF: 0 buprenorphine-naloxone [Suboxone] 8-2 mg film 2 film Sublingual DAILYX7 RF: 0 clindamycin HCl 300 mg capsule 300 mg PO QID Qty: 40 RF: 0 amoxicillin-pot clavulanate [Augmentin] 875-125 mg tablet 1 tab PO Q12H Qty: 14 RF: 0 meloxicam [Mobic] 7.5 mg tablet 7.5 mg PO DAILY Qty: 14 RF: 0 sertraline [Zoloft] 100 MG tablet 150 mg PO QAM RF: 0 acetaminophen 500 mg tablet 500 mg PO Q6H PRN (Reason: pain) Qty: 30 RF: 0
== END 2019-07-06 21:58 | disposition home or self-care (01) ==
PROVIDERS: Emergency Provider Emergency Medicine
DX: B86 Scabies (principal); F11.99 Opioid use, unspecified with unspecified opioid-induced disorder
CPT/HCPCS: 99281

== ENCOUNTER 2019-08-13 10:20 | Emergency (ER) | payer OTHER, MEDICAID, SELFPAY ==
[2019-08-13 10:34] VITALS: BP 129/70; PULSE 72; RESP 13; TEMP 36.6; O2SAT 99
--- NOTE | 2019-08-13 11:36 | ED.EYEPROB ---
HPI - Eye Problem <CLARI Doran-BC - Last Filed: 08/13/19 15:54> General Chief complaint: Eye Problems Stated complaint: rt eye infection Time Seen by Provider: 08/13/19 10:50 Source: patient Mode of arrival: Ambulatory Limitations: no limitations History of Present Illness HPI Narrative: The patient is a 34-year-old female current smoker known IV drug user who presents to the emergency department with a history of multiple abscesses with a chief complaint of an infection in her eye. She states has been there for about 5 days. She initially had which she thought was a stye and then it got worse and started draining pus. She states is on the medial aspect of her right eye, denies any fevers vomiting diarrhea or signs of systemic illness. She has not taken anything or done anything to it prior to arrival. She states her vision is normal for her and, she states the vision in her right eye is actually better than the vision in her left eye. She denies any blurry vision or double vision. Related Data Home Medications Medication Instructions Recorded Confirmed sertraline [Zoloft] 150 mg PO QAM 04/06/18 10/27/18 buprenorphine-naloxone [Suboxone] 2 film SUBLINGUAL DAILYX7 07/23/18 10/27/18 Previous Rx's Medication Instructions Recorded acetaminophen 500 mg PO Q6H PRN #30 tab 05/22/18 ondansetron 4 mg disintegrating 4 mg PO BID PRN #10 tab 10/27/18 tablet clindamycin HCl 300 mg PO QID #40 cap 03/09/19 amoxicillin-pot clavulanate 1 tab PO Q12H #14 tab 03/31/19 [Augmentin] meloxicam [Mobic] 7.5 mg PO DAILY #14 tab 03/31/19 permethrin 1 applictn TOP Q14D #60 gram 07/06/19 clindamycin HCl 300 mg PO QID #40 cap 08/13/19 Allergies Allergy/AdvReac Type Severity Reaction Status Date / Time Sulfa (Sulfonamide Allergy Verified 07/06/19 20:10 Antibiotics) Review of Systems <JOSIE Doran - Last Filed: 08/13/19 15:54> Review of Systems Narrative: GENERAL: Denies chills, fatigue, malaise, fever, sweats. HEENT: See HPI RESPIRATORY: Denies dyspnea, cough, wheezing, hemoptysis, sputum. CARDIOVASCULAR: Denies chest pain, palpitations, orthopnea, edema, GASTROINTESTINAL: Denies nausea, vomiting, abdominal pain, diarrhea, constipation, melena. : Denies dysuria, frequency, incontinence, hematuria, urinary retention. MUSCULOSKELETAL: denies weakness, joint pain, or bony pain SKIN: Denies rash, skin lesions, or other NEUROLOGIC: Denies weakness, headache, numbness, change in speech, confusion, seizures, incoordination. PSYCHIATRIC: No concerning psychosocial issues. 12 point review of systems is negative except for those stated above Patient History <JOSIE Doran - Last Filed: 08/13/19 15:54> Medical History Drug abuse (Acute) Social History Smoking Status: Current every day smoker alcohol intake: current substance use type: heroin and IV drugs Smoking Status: Current every day smoker alcohol intake frequency: holidays/special occasions only Substance Use Type: heroin Exam <JOSIE Doran - Last Filed: 08/13/19 15:54> Narrative Exam Narrative: GENERAL: This is a well-nourished, well-developed patient, in no acute distress HEAD: Atraumatic. Normocephalic. No temporal or scalp tenderness. EYES: Pupils equal round and reactive. Extraocular motions intact. No scleral icterus. No injection or drainage. Very small 3 mm abscess draining purulent drainage on medial aspect of right lower eyelid. No surrounding erythema or redness, though abscess is noted to be red. ENT: Nose without bleeding, purulent drainage or septal hematoma. Throat without erythema, tonsillar hypertrophy or exudate. Uvula midline. Airway patent. NECK: Trachea midline. No JVD or lymphadenopathy. Supple, nontender, no meningeal signs. CARDIOVASCULAR: Regular rate and rhythm without murmurs, gallops, or rubs. RESPIRATORY: Clear to auscultation. Breath sounds equal bilaterally. No wheezes, rales, or rhonchi. GASTROINTESTINAL: Abdomen soft, non-tender, nondistended. No hepato-splenomegaly, or palpable masses. No guarding. EXTREMITIES: No clubbing, cyanosis, or edema. No joint tenderness, effusion, or edema noted. BACK: Nontender without deformity or crepitance. No flank tenderness. NEURO: AOx3. Interactive. Age appropriate. SKIN: Multiple IV injection sites bilateral forearms, multiple scars bilateral arms. Initial Vital Signs Initial Vital Signs: Vital Signs Temperature 98 F 08/13/19 10:34 Pulse Rate 72 08/13/19 10:34 Respiratory Rate 13 08/13/19 10:34 Blood Pressure 129/70 08/13/19 10:34 Pulse Oximetry 99 08/13/19 10:34 <Cj Washington DO - Last Filed: 08/13/19 16:06> Initial Vital Signs Initial Vital Signs: Vital Signs Temperature 98 F 08/13/19 10:34 Pulse Rate 72 08/13/19 10:34 Respiratory Rate 13 08/13/19 10:34 Blood Pressure 129/70 08/13/19 10:34 Pulse Oximetry 99 08/13/19 10:34 Course <JOSIE Doran - Last Filed: 08/13/19 15:54> Orders Ordered: ED Orders 08/13/19 11:35 Wound Culture and Gram Stain Stat Vital Signs Vital signs: Vital Signs - 8 hr 08/13/19 10:34 Temperature 98 F Pulse Rate 72 Respiratory Rate 13 Blood Pressure 129/70 Pulse Oximetry 99 <DO Tricia Judge Last Filed: 08/13/19 16:06> Orders Ordered: ED Orders 08/13/19 11:35 Wound Culture and Gram Stain Stat Vital Signs Vital signs: Vital Signs - 8 hr 08/13/19 10:34 Temperature 98 F Pulse Rate 72 Respiratory Rate 13 Blood Pressure 129/70 Pulse Oximetry 99 MDM - Eye Problem <JOSIE Doran - Last Filed: 08/13/19 15:54> MDM Narrative Medical decision making narrative: The patient is a 34-year-old female well known IV drug user who presents with a chief complaint of a small abscess near her eye. Her visual acuities within normal limits. She denies any visual deficits. She has not been on antibiotics for the past several months. Her abscess is draining at this point, so a culture was taken. I will place her on clindamycin. Wound cultures pending. She has no signs of systemic illness, discussed return precautions of fever inability keep down fluids signs of acute distress. Patient has no questions or concerns upon discharge and states understanding of return precautions as well as follow-up care. Discharge Plan Departure Patient Disposition: Home Clinical Impression: Abscess Discharge Date/Time: 08/13/19 12:16 Instructions: DI for Hordeolum, DI for Skin Abscess Activity Restrictions/Additional Instructions: Thank you for trusting us with your care today. We have a wound culture pending to help us if we need to change her antibiotic therapy. Results will come back in 2-3 days. Your visual acuity came back well. Please use warm compresses on your eye to help facilitate drainage. Please monitor for signs of systemic infection like high fevers. Please come back to the emergency department for any acute concerns Please follow-up with primary care provider in the next few days. Prescriptions: New clindamycin HCl 300 mg capsule 300 mg PO QID Qty: 40 RF: 0 No Action ondansetron 4 mg tablet,disintegrating 4 mg PO BID PRN (Reason: nausea and vomiting) Qty: 10 RF: 0 buprenorphine-naloxone [Suboxone] 8-2 mg film 2 film Sublingual DAILYX7 RF: 0 clindamycin HCl 300 mg capsule 300 mg PO QID Qty: 40 RF: 0 amoxicillin-pot clavulanate [Augmentin] 875-125 mg tablet 1 tab PO Q12H Qty: 14 RF: 0 meloxicam [Mobic] 7.5 mg tablet 7.5 mg PO DAILY Qty: 14 RF: 0 permethrin 5 % cream 1 applictn TOP Q14D Qty: 60 RF: 0 sertraline [Zoloft] 100 MG tablet 150 mg PO QAM RF: 0 acetaminophen 500 mg tablet 500 mg PO Q6H PRN (Reason: pain) Qty: 30 RF: 0 Referrals: [facility] [Outside] <Cj Washington, DO - Last Filed: 08/13/19 16:06> Cosign ED Attending Farhanature Attestation: Dr Washington Co-Sign Statement: I was available for consultation during this patient's emergency department visit. This chart is signed by myself for administrative purposes only. I did not have direct contact with this patient during this visit. They were seen independently by the APC.
--- NOTE | 2019-08-13 12:17 | PC.NURSE ---
right inner eye with stye, sxs for 5 days, denies visual changes, denies fever or vomiting.
== END 2019-08-13 12:16 | disposition home or self-care (01) ==
PROVIDERS: Emergency Provider Nurse Practitioner Family
DX: H00.032 Abscess of right lower eyelid (principal)
CPT/HCPCS: 99281; 99282

== ENCOUNTER 2019-10-04 02:54 | Emergency (ER) | payer OTHER, MEDICAID, SELFPAY ==
--- NOTE | 2019-10-04 03:58 | ED.GENADULT ---
HPI - General Adult General Chief complaint: Skin/Abscess/Foreign Body Stated complaint: large red swelled area on right hand Time Seen by Provider: 10/04/19 03:22 History of Present Illness HPI narrative: 34-year-old woman with a history of opiate use disorder presents with abscess on the right hand. It is beginning worse for the last 3 weeks. She notes that she has generally felt unwell but denies specific fevers, cough, dyspnea, palpitations, chest pain, abdominal pain, vomiting/diarrhea. She notes some dysuria and some mild vaginal discharge, no flank pain or suprapubic pain. She currently does not have a permanent address but is ?staying with some friends?. She denies headaches, syncope, dizziness. Related Data Home Medications Medication Instructions Recorded Confirmed sertraline [Zoloft] 150 mg PO QAM 04/06/18 10/27/18 buprenorphine-naloxone [Suboxone] 2 film SUBLINGUAL DAILYX7 07/23/18 10/27/18 Previous Rx's Medication Instructions Recorded acetaminophen 500 mg PO Q6H PRN #30 tab 05/22/18 ondansetron 4 mg disintegrating 4 mg PO BID PRN #10 tab 10/27/18 tablet clindamycin HCl 300 mg PO QID #40 cap 03/09/19 amoxicillin-pot clavulanate 1 tab PO Q12H #14 tab 03/31/19 [Augmentin] meloxicam [Mobic] 7.5 mg PO DAILY #14 tab 03/31/19 permethrin 1 applictn TOP Q14D #60 gram 07/06/19 clindamycin HCl 300 mg PO QID #40 cap 08/13/19 clindamycin HCl 300 mg PO Q8H #21 cap 10/04/19 Allergies Allergy/AdvReac Type Severity Reaction Status Date / Time Sulfa (Sulfonamide Allergy Verified 07/06/19 20:10 Antibiotics) Review of Systems Review of Systems Narrative: Remainder of review of systems aside from HPI is otherwise unremarkable Patient History Medical History (Updated 10/04/19 @ 06:08 by Irena Garcia MD) Drug abuse (Acute) Opioid use disorder (Acute) Surgical History No pertinent past surgical history (Acute) Social History (Reviewed 07/01/19 @ 02:00 by KATHARINE Judge Smoking Status: Current every day smoker alcohol intake: current substance use type: heroin and IV drugs Smoking Status: Current every day smoker alcohol intake frequency: holidays/special occasions only Substance Use Type: heroin Exam Narrative Exam Narrative: General: Generally unwell appealing with pale skin, fatigued-appearing and generally disheveled. HEENT: Dry mucous membranes with 2 mm bilateral pupils Neck: No JVD, supple, track mahoney in the left supraclavicular fossa Respiratory: Lungs are clear to auscultation, no wheezing no rales no rhonchi. Full and symmetrical air movement Cardiac: Regular rate and rhythm no murmurs no bruits Abdomen: Soft nontender good bowel tones, no flank pain Skin: Multiple bruises, track mahoney, superficial abscesses Neurologic: Grossly neurologically intact with no obvious asymmetries or abnormalities Extremities: Right hand with a abscess developing over the dorsum of the hand remainder of the fingers are completely neurovascularly intact with full nontender range of motion. Psych: Flat affect, poor insigh Initial Vital Signs Initial Vital Signs: Vital Signs Temperature 98.3 F 10/04/19 04:03 Pulse Rate 92 H 10/04/19 04:03 Respiratory Rate 12 10/04/19 04:03 Blood Pressure 110/72 10/04/19 04:03 Pulse Oximetry 98 10/04/19 04:03 Procedures Abscess I/D I&D #1: Site: hand Side (if applicable): right Local Anesthetic: lidocaine 1% and with epi Technique: incised with #11 blade Amount of fluid expressed (mL): 8 Irrigation: No [place] used?: [place] [facility] [place] Name [place] Procedure: IV access Side (if applicable): right Location: Internal jugular, u/s guided with 1.5 18g periferal IV Patient tolerated procedure: Well Additional Comments: no peripheral access. Unable to access external jugular with US. Peripheral IV used for IJ us guided access. IV removed prior to discharge. Course Orders Ordered: ED Orders 10/04/19 04:30 Blood Culture Stat Complete Blood Count AUTO DIFF Stat Comprehensive Metabolic Panel Stat 10/04/19 05:45 Wound Culture and Gram Stain Stat Discontinued Medications Azithromycin (Zithromax) 1,000 mg PO NOW ONE Stop: 10/04/19 06:02 Ceftriaxone Sodium/Dextrose (Rocephin) 2 gm in 50 mls @ 100 mls/hr IV NOW ONE Stop: 10/04/19 04:58 Last Infusion: 10/04/19 05:20 Dose: 0 mls/hr Documented by: Admin: 10/04/19 04:46 Dose: 100 mls/hr Documented by: KATHY Sodium Chloride (Normal Saline 0.9%) 1,000 mls @ 1,000 mls/hr IV BOLUS ONE Stop: 10/04/19 05:28 Last Admin: 10/04/19 04:46 Dose: 1,000 mls/hr Documented by: KATHY Vancomycin HCl/Dextrose (Vancomycin) 1,500 mg in 300 mls @ 200 mls/hr IV NOW ONE Stop: 10/04/19 05:58 Last Admin: 10/04/19 05:20 Dose: 200 mls/hr Documented by: KATHY Ketorolac Tromethamine (Toradol) 15 mg IV NOW ONE Stop: 10/04/19 05:24 Last Admin: 10/04/19 05:31 Dose: 15 mg Documented by: GREGORIA Ondansetron HCl (Zofran) 4 mg IV NOW ONE Stop: 10/04/19 06:02 Vital Signs Vital signs: Vital Signs - 8 hr 10/04/19 04:03 Temperature 98.3 F Pulse Rate 92 H Respiratory Rate 12 Blood Pressure 110/72 Pulse Oximetry 98 Medical Decision Making Medical Records Medical records reviewed: Yes I reviewed the patient's medical records. Lab Data Lab results reviewed: Yes I reviewed the patient's lab results. Result diagrams: 10/04/19 04:30 10/04/19 04:30 Labs: Lab Results 10/04/19 10/04/19 Range/Units 04:30 04:30 WBC 9.8 (4.5-11.0) X10^3/uL RBC 4.24 (4.0-5.2) X10^6/uL Hgb 12.0 (12.0-16.0) g/dL Hct 34.1 L (36-46) % MCV 80.4 (80-100) fL MCH 28.4 (26-34) PG MCHC 35.3 (30-36) % RDW 14.4 (11.6-14.8) % Plt Count 241 (150-400) X10^3/uL Neut % (Auto) 75.2 H (50-75) % Lymph % (Auto) 16.8 L (25-40) % Morton % (Auto) 6.7 (3-14) % Eos % (Auto) 0.7 L (2-4) % Baso % (Auto) 0.6 (0-2) % Neut # (Auto) 7300 H (4392-3281) /uL Lymph # (Auto) 1600 (3027-5646) /uL Morton # (Auto) 700 (0-900) /uL Eos # (Auto) 100 (0-450) /uL Baso # (Auto) 100 (0-100) /uL Sodium 136 L (137-145) mmol/L Potassium 3.5 (3.4-5.1) mmol/L Chloride 100 (98-107) mmol/L Carbon Dioxide 26 (22-32) mmol/L BUN 8 (7-17) mg/dL Creatinine 0.51 L (0.52-1.04) mg/dL Estimated GFR > 60.0 (>60) mL/min BUN/Creatinine Ratio 15.7 (6-22) Glucose 114 H (70-100) mg/dL Calcium 8.8 (8.4-10.2) mg/dL Total Bilirubin 0.4 (0.2-1.3) mg/dL AST 19 (14-36) IU/L ALT 12 (<35) IU/L Alkaline Phosphatase 76 (38-126) U/L Total Protein 7.3 (6.3-8.2) g/dL Albumin 4.0 (3.5-5.0) g/dL Globulin 3.3 (1.7-4.1) g/dL Albumin/Globulin Ratio 1.2 (1.0-2.8) MDM Narrative Medical decision making narrative: Due to overall ill appearing General presentation with right upper extremity swelling and significant abscess over the dorsum of the hand complete workup is undertaken with concerns for sepsis. Labs are relatively unremarkable. Careful auscultation does not suggest clicks or murmurs suggestive of endocarditis. With the overall presentation, the flat affect poor eye contact and multiple bruises everywhere she is asked in a couple of different ways and settings if she feels safe at home and safe with leaving with the friends who brought her to the emergency room. She states that she definitely does feel safe Regarding the dysuria she describes it as a mild chronic symptom with vaginal discharge. This is relatively consistent with a sexually transmitted infection. She is given a dose of vancomycin and IV ceftriaxone for the abscess. This ceftriaxone dose would certainly cover gonorrhea. Will also give her a g of oral azithromycin. She is not sure she will be able to produce urine but if she is we will check for gonorrhea and chlamydia. Any UTI would be covered with the IV ceftriaxone already administered. With no evidence of sepsis or endocarditis. Abscess is drained nicely pain is better controlled. Hand is immobilized for comfort. Will have her complete 7 additional days of clindamycin. And she is safe for home discharge at this time Discharge Plan Departure Patient Disposition: Home Clinical Impression: Opioid use disorder Abscess of skin or subcutaneous tissue Qualifiers: Site of cutaneous abscess: extremity Site of cutaneous abscess of extremity: hand Laterality: right Qualified Code(s): L02.511 - Cutaneous abscess of right hand Cellulitis Qualifiers: Site of cellulitis: extremity Site of cellulitis of extremity: upper extremity Laterality: right Qualified Code(s): L03.113 - Cellulitis of right upper limb Instructions: DI for Skin Abscess Activity Restrictions/Additional Instructions: Thank you for coming in today We drained the abscess on your right hand and the wound was cultured. You were given vancomycin and ceftriaxone in the emergency department. Blood work was done and there is no evidence of sepsis or overwhelming infection at this time. You will need an additional 7 days of clindamycin to treat the hand abscess and surrounding cellulitis. This prescription has been electronically transmitted to [facility] for you to corn picker later today. With complaints of mild pain with urination and vaginal discharge the possibility of both bladder infection and sexually transmitted infection or entertained. With the antibiotics given IV for the wound infection of bladder infection would be completely treated already as would gonorrhea. I have also given you a g of oral azithromycin to empirically treat chlamydia. If you are able to leave us a urine sample we will test for both of these and let you know results. Please discuss these concerns with any sexual partner you currently have had or may have had recently and bear in mind that your partner should likely screened in tested for a sexually transmitted infection as well. Please consider getting back to methadone treatment for your opioid use disorder. When you have used up all of the veins as you have and your injecting into the skin and up around your neck, the possibility of severe life-threatening infections and complications is even higher. I wish you the best Prescriptions: New clindamycin HCl 300 mg capsule 300 mg PO Q8H Qty: 21 RF: 0 No Action ondansetron 4 mg tablet,disintegrating 4 mg PO BID PRN (Reason: nausea and vomiting) Qty: 10 RF: 0 buprenorphine-naloxone [Suboxone] 8-2 mg film 2 film Sublingual DAILYX7 RF: 0 clindamycin HCl 300 mg capsule 300 mg PO QID Qty: 40 RF: 0 amoxicillin-pot clavulanate [Augmentin] 875-125 mg tablet 1 tab PO Q12H Qty: 14 RF: 0 meloxicam [Mobic] 7.5 mg tablet 7.5 mg PO DAILY Qty: 14 RF: 0 permethrin 5 % cream 1 applictn TOP Q14D Qty: 60 RF: 0 sertraline [Zoloft] 100 MG tablet 150 mg PO QAM RF: 0 acetaminophen 500 mg tablet 500 mg PO Q6H PRN (Reason: pain) Qty: 30 RF: 0 clindamycin HCl 300 mg capsule 300 mg PO QID Qty: 40 RF: 0
[2019-10-04 04:03] VITALS: BP 110/72; PULSE 92; RESP 12; TEMP 36.8; O2SAT 98; BMI 20.5
--- NOTE | 2019-10-04 04:41 | PC.NURSE ---
2 sets of blood cultures drawn from R IJ per verbal order from Dr Garcia, due to lack of venous access elsewhere.
[2019-10-04 04:46] LABS: Add Manual Diff / Slide Review NO; Basophils Absolute Auto 100 /uL (0-100); Basophils Percent Auto 0.6 % (0-2); Eosinophils Absolute Auto 100 /uL (0-450); Eosinophils Percent Auto 0.7 % (2-4); Hematocrit 34.1 % (36-46); Lymphocytes Absolute Auto 1600 /uL (1100-4500); Lymphocytes Percent Auto 16.8 % (25-40); Mean Corpuscular HGB Conc 35.3 % (30-36); Mean Corpuscular Hemoglobin 28.4 PG (26-34); Mean Corpuscular Volume 80.4 fL (80-100); Monocytes Absolute Auto 700 /uL (0-900); Monocytes Percent Auto 6.7 % (3-14); Neutrophils Absolute Auto 7300 /uL (1500-7000); Neutrophils Percent Auto 75.2 % (50-75); Platelet Count 241 X10^3/uL (150-400); Red Blood Cell Count 4.24 X10^6/uL (4.0-5.2); Red Cell Distribution Width 14.4 % (11.6-14.8); White Blood Cell Count 9.8 X10^3/uL (4.5-11.0)
[2019-10-04] MEDS: CEFTRIAXONE 2 GM/50 ML FROZ.PIGGY IV (04:46)
[2019-10-04] MEDS: SODIUM CHLORIDE 0.9% 1,000 ML 1000 ML IV (04:46)
[2019-10-04 04:54] LABS: Alanine Aminotransferase 12 IU/L (<35); Albumin Globulin Ratio 1.2 (1.0-2.8); Alkaline Phosphatase 76 U/L (38-126); Aspartate Aminotransferase 19 IU/L (14-36); BUN Creatinine Ratio 15.7 (6-22); Bilirubin Total 0.4 mg/dL (0.2-1.3); Blood Urea Nitrogen 8 mg/dL (7-17); Calcium 8.8 mg/dL (8.4-10.2); Carbon Dioxide 26 mmol/L (22-32); Chloride 100 mmol/L (98-107); Estimated Glomerular Filt Rate > 60.0 mL/min (>60); Globulin 3.3 g/dL (1.7-4.1); Glucose 114 mg/dL (70-100); HEMOLYSIS < 15 (0-50); Potassium 3.5 mmol/L (3.4-5.1); Sodium 136 mmol/L (137-145); Total Protein 7.3 g/dL (6.3-8.2)
[2019-10-04] MEDS: VANCOMYCIN 1,500 MG/300 ML FROZ.PIGGY 200 MG IV (05:20)
[2019-10-04] MEDS: KETOROLAC 60 MG/2 ML VIAL 15 MG IV (05:31)
[2019-10-04] MEDS: AZITHROMYCIN 250 MG TABLET 1000 MG PO (06:48)
[2019-10-04] MEDS: ONDANSETRON 4 MG/2 ML INJ IV (06:48)
[2019-10-04 07:18] VITALS: BP 113/72; PULSE 79; RESP 14; TEMP 36.2; O2SAT 100
[2019-10-04 08:57] LABS: Urine N gonorrhoeae NOT DETECTED
[2019-10-04 09:00] LABS: Urine Chlamydia NOT DETECTED
== END 2019-10-04 07:20 | disposition home or self-care (01) ==
PROVIDERS: Emergency Provider Emergency Medicine
DX: L02.511 Cutaneous abscess of right hand (principal); L03.113 Cellulitis of right upper limb; Z11.3 Encounter for screening for infections with a predominantly sexual mode of transmission; R30.0 Dysuria; N89.8 Other specified noninflammatory disorders of vagina; F11.99 Opioid use, unspecified with unspecified opioid-induced disorder
CPT/HCPCS: 10060; 36415; 36573; 80053; 85025; 87040; 87070; 87075; 87077; 87147; 87186; 87205; 87491; 87591; 96365; 96366; 96367; 96375; 99284; J0696; J1885; J2405

== ENCOUNTER 2021-03-06 22:01 | Emergency (ER) | payer OTHER, MEDICAID, SELFPAY ==
[2021-03-06 22:04] VITALS: BP 113/65; PULSE 105; RESP 20; TEMP 37.3; O2SAT 100
--- NOTE | 2021-03-06 22:29 | ED.GENADULT ---
HPI - General Adult General Chief complaint: Skin/Abscess/Foreign Body Stated complaint: Abscess Time Seen by Provider: 03/06/21 22:16 Source: patient Mode of arrival: Ambulatory History of Present Illness HPI narrative: Patient is a 35-year-old female who is here for evaluation of which she states is a abscess to her left hip. She is a IV drug abuser. She has been having difficult times finding veins and so she injected herself in the muscle of her left hip. She states this was several weeks ago that she did this. Since that time she has had increasing pain and discomfort until just recently it has started to become much larger. She is afebrile. She states that it was a needle that she has used in the past. Related Data Home Medications Medication Instructions Recorded Confirmed sertraline 100 mg tablet (Zoloft) 150 mg PO QAM 04/06/18 10/27/18 buprenorphine 8 mg-naloxone 2 mg 2 film SUBLINGUAL [id number] 07/23/18 10/27/18 sublingual film Previous Rx's Medication Instructions Recorded acetaminophen 500 mg tablet 500 mg PO Q6H PRN #30 tab 05/22/18 ondansetron 4 mg disintegrating 4 mg PO BID PRN #10 tab 10/27/18 tablet clindamycin HCl 300 mg capsule 300 mg PO QID #40 cap 03/09/19 amoxicillin 875 mg-potassium 1 tab PO Q12H #14 tab 03/31/19 clavulanate 125 mg tablet (Augmentin) meloxicam 7.5 mg tablet (Mobic) 7.5 mg PO DAILY #14 tab 03/31/19 permethrin 5 % topical cream 1 applictn TOP Q14D #60 gram 07/06/19 clindamycin HCl 300 mg capsule 300 mg PO QID #40 cap 08/13/19 clindamycin HCl 300 mg capsule 300 mg PO Q8H #21 cap 10/04/19 Allergies Allergy/AdvReac Type Severity Reaction Status Date / Time Sulfa (Sulfonamide Allergy Verified 07/06/19 20:10 Antibiotics) Review of Systems Constitutional Constitutional: Denies fever(s) Musculoskeletal Comments: Left hip discomfort Integumentary/Breasts Comments: Swelling and potential abscess to left hip Hematologic/Lymphatic On Anticoagulants: No Patient History Medical History Drug abuse Opioid use disorder Surgical History No pertinent past surgical history Social History Smoking Status: Current every day smoker alcohol intake: current substance use type: heroin and IV drugs Smoking Status: Current every day smoker alcohol intake frequency: holidays/special occasions only Substance Use Type: heroin Exam Initial Vital Signs Initial Vital Signs: Vital Signs Temperature 99.2 F 03/06/21 22:04 Pulse Rate 105 H 03/06/21 22:04 Respiratory Rate 20 03/06/21 22:04 Blood Pressure 113/65 03/06/21 22:04 Pulse Oximetry 100 03/06/21 22:04 Const General: cooperative and comfortable Resp Effort & Inspection: normal respiratory effort Cardio Rate: regular rate Skin Other: Patient with a large area of induration along the lateral aspect of the left hip. There is no redness. It is tender to palpation. There are no vesicles or pustules seen on the skin Neuro General: patient alert, patient awake and patient oriented x3 Extrem Left lower extremity: normal to inspection Other: Patient has full range of motion of the left hip Procedures Abscess I/D I&D #1: Site: other (Left hip) Side (if applicable): left Local Anesthetic: lidocaine 1% and with bicarb Amount of anesthesia used (mL): 10 Technique: incised with #11 blade Irrigation: No Packing used?: none Course Orders Ordered: Discontinued Medications Lidocaine/Sodium Bicarbonate (Lido 1%/Sod Bicarb 8.4% (10ml) 10 Ml Syringe) 10 ml INJ NOW ONE Stop: 03/06/21 22:17 Vital Signs Vital signs: Vital Signs - 8 hr 03/06/21 22:04 03/06/21 23:11 Temperature 99.2 F Pulse Rate 105 H 98 H Respiratory Rate 20 18 Blood Pressure 113/65 121/67 Pulse Oximetry 100 99 Medical Decision Making [facility] Narrative Medical decision making narrative: Physical exam is consistent with an abscess the left hip. There is no overlying cellulitis. She is nontoxic appearing. Afebrile. Not tachycardic. Full range of motion of her left hip. Bedside ultrasound shows a very large abscess in the subcutaneous tissue. It was incised and drained as described above. He did have a return of a large amount of purulent material. There is no overlying cellulitis. No indication for antibiotics. Patient was given care instructions and return precautions. She expressed understanding and agreement. Discharge Plan Departure Patient Disposition: Home Clinical Impression: Abscess of skin or subcutaneous tissue Instructions: DI for Skin Abscess Activity Restrictions/Additional Instructions: There will be continued drainage over the next couple days. Just change the bandage as needed. You can take Tylenol/ibuprofen for any discomfort. You can shower like normal. Contact your primary doctor for a follow-up. Return to the emergency department for any new or worsening symptoms Prescriptions: No Action ondansetron 4 mg tablet,disintegrating 4 mg PO BID PRN (Reason: nausea and vomiting) Qty: 10 RF: 0 buprenorphine-naloxone [Suboxone] 8-2 mg film 2 film Sublingual DAILYX7 RF: 0 clindamycin HCl 300 mg capsule 300 mg PO QID Qty: 40 RF: 0 amoxicillin-pot clavulanate [Augmentin] 875-125 mg tablet 1 tab PO Q12H Qty: 14 RF: 0 meloxicam [Mobic] 7.5 mg tablet 7.5 mg PO DAILY Qty: 14 RF: 0 permethrin 5 % cream 1 applictn TOP Q14D Qty: 60 RF: 0 sertraline [Zoloft] 100 MG tablet 150 mg PO QAM RF: 0 acetaminophen 500 mg tablet 500 mg PO Q6H PRN (Reason: pain) Qty: 30 RF: 0 clindamycin HCl 300 mg capsule 300 mg PO QID Qty: 40 RF: 0 clindamycin HCl 300 mg capsule 300 mg PO Q8H Qty: 21 RF: 0
[2021-03-06 23:11] VITALS: BP 121/67; PULSE 98; RESP 18; O2SAT 99
== END 2021-03-06 23:11 | disposition home or self-care (01) ==
PROVIDERS: Emergency Provider Emergency Medicine
DX: L02.416 Cutaneous abscess of left lower limb (principal)
CPT/HCPCS: 10060; 99281; 99283

== ENCOUNTER 2021-06-10 16:23 | Inpatient (IN) | payer OTHER, MEDICAID, SELFPAY ==
[2021-06-10 17:15] VITALS: BP 122/77; PULSE 116; RESP 20; TEMP 36.7; O2SAT 100; BMI 25.7
[2021-06-10] MEDS: HYDROMORPHONE 1 MG INJ 2 MG IM (17:41)
[2021-06-10] MEDS: KETOROLAC 30 MG/ML VIAL IM (17:44)
--- NOTE | 2021-06-10 17:47 | PC.NURSE ---
pt has an abscess to the back of the upper arm that is about the size of a grapefruit, area is red, draining purulent fluid and is painful
[2021-06-10] MEDS: SODIUM CHLORIDE 0.9% 1,000 ML 1000 ML IV (18:20)
[2021-06-10] MEDS: ONDANSETRON 4 MG/2 ML INJ IV (18:20)
--- NOTE | 2021-06-10 18:22 | ED.SKABFB ---
HPI - Skin/Abscess/Foreign Bdy General Chief complaint: Skin/Abscess/Foreign Body Stated complaint: Abcess on back of arm x2 Time Seen by Provider: 06/10/21 17:30 Source: patient Mode of arrival: Wheelchair Limitations: no limitations History of Present Illness HPI narrative: 36-year-old female daily smoker with history of IV drug abuse presents with her significant other and a chief complaint of a worsening, painful and foul-smelling abscess on her left arm. She states that she had injected about a week ago and symptoms have been worsening. For the past few days she has not had any your drinking feels nauseated with poor appetite and subjective fevers. She denies any chest pain or shortness of breath. She is not dizzy nor weak or lightheaded. She has been NPO for at least 24 hours to liquids and solids Related Data Home Medications Medication Instructions Recorded Confirmed No Known Home Medications 06/10/21 06/10/21 Allergies Allergy/AdvReac Type Severity Reaction Status Date / Time Sulfa (Sulfonamide Allergy Verified 06/10/21 17:13 Antibiotics) Review of Systems Review of Systems Narrative: GENERAL: See HPI. HEENT: Denies sinus pain, ear pain, sore throat, difficulty swallowing, dizziness. RESPIRATORY: Denies dyspnea, cough, wheezing, hemoptysis, sputum. CARDIOVASCULAR: Denies chest pain, palpitations, orthopnea, edema, GASTROINTESTINAL: See HPI : Denies dysuria, frequency, incontinence, hematuria, urinary retention. MUSCULOSKELETAL: denies weakness, joint pain, or bony pain SKIN: See HPI NEUROLOGIC: Denies weakness, headache, numbness, change in speech, confusion, seizures, incoordination. PSYCHIATRIC: No concerning psychosocial issues. 12 point review of systems is negative except for those stated above Patient History Medical History (Updated 06/11/21 @ 12:32 by Omid Ayon MD) Drug abuse IVDU (intravenous drug user) Obesity (BMI 30.0-34.9) Opioid use disorder Tobacco abuse Surgical History (Updated 06/11/21 @ 00:51 by JOSIE Mendez) History of appendectomy History of cholecystectomy History of tonsillectomy No pertinent past surgical history Family History Mother Diabetes mellitus Cancer Father SHAYNE (obstructive sleep apnea) Social History household members: significant other Smoking Status: Current every day smoker alcohol intake: never substance use type: heroin and IV drugs Smoking Status: Current every day smoker alcohol intake frequency: holidays/special occasions only Substance Use Type: heroin Exam Narrative Exam Narrative: GENERAL: [36 year old patient appears stated age. Well-developed patient, in mild distress. Ill-appearing, obviously uncomfortable HEAD: Atraumatic. Normocephalic. EYES: Pupils equal round and reactive. Extraocular motions intact. No scleral icterus. No injection or drainage. ENT: Nose without bleeding, purulent drainage. Throat without erythema, tonsillar hypertrophy or exudate. Airway patent. NECK: Trachea midline. Non tender CARDIOVASCULAR: Regular rate and rhythm without murmurs, gallops, or rubs. RESPIRATORY: Clear to auscultation. Breath sounds equal bilaterally. No wheezes, rales, or rhonchi. GASTROINTESTINAL: Abdomen soft, non-tender, nondistended. EXTREMITIES: Large, 15 cm fluctuant mass consistent with abscess, foul-smelling with significant surrounding induration and erythema. Compartments are soft, she is neurovascularly intact BACK: Nontender without deformity or crepitance. No flank tenderness. NEURO: AOx3. SKIN: No rash or erythema of visible areas Initial Vital Signs Initial Vital Signs: Vital Signs Temperature 98.0 F 06/10/21 17:15 Pulse Rate 116 H 06/10/21 17:15 Respiratory Rate 20 06/10/21 17:15 Blood Pressure 122/77 06/10/21 17:15 Pulse Oximetry 100 06/10/21 17:15 Course Orders Ordered: Acetaminophen (Acetaminophen 325 Mg Tablet) 650 mg PO Q6HR PRN PRN Reason: Fever/Mild Pain (1-3) Last Admin: 06/11/21 20:15 Dose: 650 mg Documented by: Admin: 06/11/21 08:59 Dose: 650 mg Documented by: Admin: 06/10/21 22:20 Dose: 650 mg Documented by: SARAH Enoxaparin Sodium (Enoxaparin 40 Mg/0.4 Ml Syringe) 40 mg SUBCUT DAILY SHIVANI Hydromorphone HCl (Hydromorphone 1 Mg Inj) 1 mg IV Q6H PRN PRN Reason: Pain, Severe (7-10) Last Admin: 06/11/21 22:54 Dose: 1 mg Documented by: Admin: 06/11/21 08:58 Dose: 1 mg Documented by: Admin: 06/10/21 22:17 Dose: 1 mg Documented by: SARAH Sodium Chloride (Normal Saline 0.9%) 1,000 mls @ 80 mls/hr IV CONT [facility] Last Admin: 06/11/21 14:47 Dose: 80 mls/hr Documented by: Infusion: 06/11/21 10:43 Dose: 80 mls/hr Documented by: Admin: 06/10/21 22:13 Dose: 80 mls/hr Documented by: SARAH Vancomycin HCl (Vancomycin) 1,000 mg in 200 mls @ 200 mls/hr IV Q8H [facility] Last Admin: 06/11/21 20:14 Dose: 200 mls/hr Documented by: Infusion: 06/11/21 15:46 Dose: 200 mls/hr Documented by: Admin: 06/11/21 14:46 Dose: 200 mls/hr Documented by: SAVANA Methadone HCl (Methadone 10 Mg Tablet) 10 mg PO DAILY [facility] Last Admin: 06/11/21 08:59 Dose: 10 mg Documented by: SAVANA Naloxone HCl (Naloxone 0.4 Mg/Ml Vial) 0.2 mg IV Q2MIN PRN PRN Reason: Opiate Reversal Ondansetron HCl (Ondansetron 4 Mg/2 Ml Inj) 4 mg IV Q8HR PRN PRN Reason: Nausea And Vomiting Vancomycin HCl (Vancomycin Trough) 1 request [facility] [place] 1230 ONE Stop: 06/12/21 12:31 Discontinued Medications Acetaminophen (Acetaminophen 325 Mg Tablet) 650 mg PO PACUNOW PRN PRN Reason: Pain, Mild (1-3) Last Admin: 06/11/21 13:50 Dose: 650 mg Documented by: CHANCE Hydrocodone Bitart/Acetaminophen (Hydrocodone/Acet 5/325 Tablet) 1 tab PO PACUNOW PRN PRN Reason: Mild or moderate pain Bupivacaine Liposome (Bupivacaine Liposome 266 Mg/20 Ml Vial) 266 mg INJ NOW ONE Stop: 06/11/21 13:01 Last Admin: 06/11/21 13:00 Dose: 266 mg Documented by: JEFFERSON Fentanyl (Fentanyl 100 Mcg/2 Ml Inj) 0 mcg IV Q5M PRN PRN Reason: Pain, Moderate (4-6) Heparin Sodium (Porcine) (Heparin 5,000 Unit/Ml Vial) 5,000 unit SUBCUT Q8HR SHIVANI Hydromorphone HCl (Hydromorphone 1 Mg Inj) 2 mg IM NOW ONE Stop: 06/10/21 17:34 Last Admin: 06/10/21 17:41 Dose: 2 mg Documented by: MARIA TERESA Hydromorphone HCl (Hydromorphone 2 Mg Inj) 0 mg IV Q5MIN PRN PRN Reason: Pain, Mild (1-3) Sodium Chloride (Normal Saline 0.9%) 1,000 mls @ 1,000 mls/hr IV BOLUS ONE Stop: 06/10/21 18:31 Last Infusion: 06/10/21 23:56 Dose: 0 mls/hr Documented by: Admin: 06/10/21 18:20 Dose: 1,000 mls/hr Documented by: MARIA TERESA Vancomycin HCl/Dextrose (Vancomycin) 1,500 mg in 300 mls @ 200 mls/hr IV NOW ONE Stop: 06/10/21 19:59 Last Infusion: 06/10/21 23:56 Dose: 0 mls/hr Documented by: Admin: 06/10/21 18:43 Dose: 200 mls/hr Documented by: MARIA TERESA Vancomycin HCl (Vancomycin) 1,000 mg in 200 mls @ 200 mls/hr IV NOW ONE Stop: 06/10/21 22:59 Last Infusion: 06/10/21 23:56 Dose: 0 mls/hr Documented by: Admin: 06/10/21 22:19 Dose: 200 mls/hr Documented by: SARAH Vancomycin HCl (Vancomycin) 750 mg in 150 mls @ 150 mls/hr IV NOW ONE Stop: 06/10/21 23:59 Last Admin: 06/10/21 23:56 Dose: 150 mls/hr Documented by: SARAH Lactated Ringer's (Lactated Ringers) 1,000 mls @ 42 mls/hr IV NOW ONE Stop: 06/12/21 12:11 Last Infusion: 06/11/21 14:34 Dose: 0 mls/hr Documented by: Admin: 06/11/21 12:24 Dose: 42 mls/hr Documented by: PADMINI Ketorolac Tromethamine (Ketorolac 30 Mg/Ml Vial) 30 mg IM NOW ONE Stop: 06/10/21 17:34 Last Admin: 06/10/21 17:44 Dose: 30 mg Documented by: MARIA TERESA Ketorolac Tromethamine (Ketorolac 30 Mg/Ml Vial) 30 mg IV Q6HR PRN PRN Reason: Pain, Severe (7-10) Stop: 06/15/21 00:00 Methadone HCl (Methadone 10 Mg Tablet) 10 mg PO QID SHIVANI Last Admin: 06/11/21 00:38 Dose: 10 mg Documented by: SARAH Ondansetron HCl (Ondansetron 4 Mg/2 Ml Inj) 4 mg IV NOW ONE Stop: 06/10/21 17:33 Last Admin: 06/10/21 18:20 Dose: 4 mg Documented by: MARIA TERESA Ondansetron HCl (Ondansetron 4 Mg/2 Ml Inj) 4 mg IV NOW PRN PRN Reason: Nausea And Vomiting Oxycodone HCl (Oxycodone Ir 5 Mg Tablet) 5 mg PO PACUNOW PRN PRN Reason: Mild or moderate pain Last Admin: 06/11/21 13:49 Dose: 5 mg Documented by: CHANCE Potassium Chloride (Potassium Chloride 20 Meq Tab) 40 meq PO NOW ONE Stop: 06/11/21 09:01 Last Admin: 06/11/21 09:07 Dose: 40 meq Documented by: SAVANA Vancomycin HCl (Vancomycin Trough) 1 request [facility] [place] 0909 ONE Stop: 06/11/21 09:10 Consultations Consultation #1: general surgery consulted given need for incision and drainage, likely debridement in the OR, he is happy to play a role but requests admission to the hospitalist Consultation #2: hospitalist happy to except Vital Signs Vital signs: Vital Signs - 8 hr 06/10/21 17:15 Temperature 98.0 F Pulse Rate 116 H Respiratory Rate 20 Blood Pressure 122/77 Pulse Oximetry 100 MDM - Skin/Abscess/Foreign Bdy Lab Data Result diagrams: 06/11/21 05:20 06/11/21 05:20 Labs: Lab Results 01/31/22 01/31/22 01/31/22 Range/Units 18:10 18:10 18:10 WBC 17.0 H (4.5-11.0) X10^3/uL RBC 4.78 (4.0-5.2) X10^6/uL Hgb 12.6 (12.0-16.0) g/dL Hct 36.7 (36-46) % MCV 76.7 L (80-100) fL MCH 26.4 (26-34) PG MCHC 34.4 (30-36) % RDW 14.1 (11.6-14.8) % Plt Count 341 (150-400) X10^3/uL Neut % (Auto) 82.6 H (50-75) % Lymph % (Auto) 8.7 L (25-40) % [place] % (Auto) 7.9 (3-14) % Eos % (Auto) 0.5 L (2-4) % Baso % (Auto) 0.3 (0-2) % Neut # (Auto) 20901 H (9788-1374) /uL Lymph # (Auto) 1500 (0669-7600) /uL [place] # (Auto) 1300 H (0-900) /uL Eos # (Auto) 100 (0-450) /uL Baso # (Auto) 0 (0-100) /uL Sodium 134 L (137-145) mmol/L Potassium 4.1 (3.4-5.1) mmol/L Chloride 97 L (98-107) mmol/L Carbon Dioxide 33 H (22-32) mmol/L BUN 9 (7-17) mg/dL Creatinine 0.73 (0.52-1.04) mg/dL Estimated GFR > 60.0 (>60) mL/min BUN/Creatinine Ratio 12.3 (6-22) Glucose 112 H (70-100) mg/dL Lactate 1.2 (0.7-2.1) mmol/L Calcium 9.0 (8.4-10.2) mg/dL Magnesium (1.6-2.3) mg/dL Total Bilirubin 0.5 (0.2-1.3) mg/dL AST 22 (14-36) IU/L ALT 10 (<35) IU/L Alkaline Phosphatase 102 (38-126) U/L Total Protein 7.9 (6.3-8.2) g/dL Albumin 4.0 (3.5-5.0) g/dL Globulin 3.9 (1.7-4.1) g/dL Albumin/Globulin Ratio 1.0 (1.0-2.8) Lipase 21 L (23-300) U/L Procalcitonin 0.08 (<0.5) ng/mL 06/10/21 Range/Units 18:10 WBC (4.5-11.0) X10^3/uL RBC (4.0-5.2) X10^6/uL Hgb (12.0-16.0) g/dL Hct (36-46) % MCV (80-100) fL MCH (26-34) PG MCHC (30-36) % RDW (11.6-14.8) % Plt Count (150-400) X10^3/uL Neut % (Auto) (50-75) % Lymph % (Auto) (25-40) % [place] % (Auto) (3-14) % Eos % (Auto) (2-4) % Baso % (Auto) (0-2) % Neut # (Auto) (2346-2362) /uL Lymph # (Auto) (4865-8532) /uL [place] # (Auto) (0-900) /uL Eos # (Auto) (0-450) /uL Baso # (Auto) (0-100) /uL Sodium (137-145) mmol/L Potassium (3.4-5.1) mmol/L Chloride (98-107) mmol/L Carbon Dioxide (22-32) mmol/L BUN (7-17) mg/dL Creatinine (0.52-1.04) mg/dL Estimated GFR (>60) mL/min BUN/Creatinine Ratio (6-22) Glucose (70-100) mg/dL Lactate (0.7-2.1) mmol/L Calcium (8.4-10.2) mg/dL Magnesium 2.1 (1.6-2.3) mg/dL Total Bilirubin (0.2-1.3) mg/dL AST (14-36) IU/L ALT (<35) IU/L Alkaline Phosphatase (38-126) U/L Total Protein (6.3-8.2) g/dL Albumin (3.5-5.0) g/dL Globulin (1.7-4.1) g/dL Albumin/Globulin Ratio (1.0-2.8) Lipase (23-300) U/L Procalcitonin (<0.5) ng/mL Discharge Plan Departure Patient Disposition: Admitted As Inpatient Clinical Impression: Abscess of skin or subcutaneous tissue Qualifiers: Site of cutaneous abscess: extremity Site of cutaneous abscess of extremity: upper extremity Laterality: left Qualified Code(s): L02.414 - Cutaneous abscess of left upper limb Admit Date/Time: 06/10/21 18:38 Admit Provider: Montserrat Whitney
[2021-06-10 18:25] LABS: Add Manual Diff / Slide Review NO; Basophils Absolute Auto 0 /uL (0-100); Basophils Percent Auto 0.3 % (0-2); Eosinophils Absolute Auto 100 /uL (0-450); Eosinophils Percent Auto 0.5 % (2-4); Hematocrit 36.7 % (36-46); Hemoglobin 12.6 g/dL (12.0-16.0); Lymphocytes Absolute Auto 1500 /uL (1100-4500); Lymphocytes Percent Auto 8.7 % (25-40); Mean Corpuscular HGB Conc 34.4 % (30-36); Mean Corpuscular Hemoglobin 26.4 PG (26-34); Mean Corpuscular Volume 76.7 fL (80-100); Monocytes Absolute Auto 1300 /uL (0-900); Monocytes Percent Auto 7.9 % (3-14); Neutrophils Absolute Auto 14000 /uL (1500-7000); Neutrophils Percent Auto 82.6 % (50-75); Platelet Count 341 X10^3/uL (150-400); Red Blood Cell Count 4.78 X10^6/uL (4.0-5.2); Red Cell Distribution Width 14.1 % (11.6-14.8)
[2021-06-10 18:32] LABS: Lactate (Lactic Acid) 1.2 mmol/L (0.7-2.1)
[2021-06-10 18:33] LABS: Alkaline Phosphatase 102 U/L (38-126); Aspartate Aminotransferase 22 IU/L (14-36); BUN Creatinine Ratio 12.3 (6-22); Bilirubin Total 0.5 mg/dL (0.2-1.3); Blood Urea Nitrogen 9 mg/dL (7-17); Carbon Dioxide 33 mmol/L (22-32); Chloride 97 mmol/L (98-107); Estimated Glomerular Filt Rate > 60.0 mL/min (>60); Globulin 3.9 g/dL (1.7-4.1); Glucose 112 mg/dL (70-100); HEMOLYSIS 19 (0-50); Lipase 21 U/L (23-300); Potassium 4.1 mmol/L (3.4-5.1); Sodium 134 mmol/L (137-145); Total Protein 7.9 g/dL (6.3-8.2)
--- NOTE | 2021-06-10 18:33 | DI.RAD.S_ITS ---
PROCEDURE: XR HUMERUS LT 2V INDICATIONS: FB TECHNIQUE: 2 views of the humerus were acquired. COMPARISON: None. FINDINGS: Bones: No fractures or dislocations. No suspicious bony lesions. Soft tissues: No suspicious soft tissue calcifications. IMPRESSION: Normal left humerus Dictated by: Black Lino M.D. on 06/10/2021 at 18:58 Approved by: Black Lino M.D. on 06/10/2021 at 18:59
[2021-06-10] MEDS: VANCOMYCIN 1,500 MG/300 ML PIGGYBACK 200 MG IV (18:43)
[2021-06-10 18:45] VITALS: BMI 31.0
[2021-06-10 18:50] LABS: Procalcitonin 0.08 ng/mL (<0.5)
[2021-06-10 19:51] LABS: COVID19 -Nasal RAPID Negative (Negative)
[2021-06-10 20:10] LABS: Alanine Aminotransferase 10 IU/L (<35)
--- NOTE | 2021-06-10 20:33 | PC.NURSE ---
admit pt to AC from ED at 1999. VSS. alert and oriented. pt states pain to LUE 10/10 feels like my skin is being pulled off. states medication provided in ED helped a smidge. LUE wrapped in chux pad; chux removed and has coupious odiferous vargas drainage. upper arm is swollen and erythemic. LUE elevated on chux covered pillows, pt states arm feels better unwrapped. Pt states has not injected heroin near area in weeks and has noticed the pain and redness x1 week. Oriented to room and plan of care. instructed to use call light for needs and prior to activity for assist.
[2021-06-10 21:27] VITALS: BP 105/62; PULSE 74; RESP 16; TEMP 36.3; O2SAT 97
[2021-06-10 21:51] LABS: Magnesium 2.1 mg/dL (1.6-2.3)
[2021-06-10] MEDS: SODIUM CHLORIDE 0.9% 1,000 ML 80 ML IV (22:13)
[2021-06-10] MEDS: HYDROMORPHONE 1 MG INJ IV (22:17)
[2021-06-10] MEDS: VANCOMYCIN 1,000 MG/200 ML PIGGYBACK 200 MG IV (22:19)
[2021-06-10] MEDS: ACETAMINOPHEN 325 MG TABLET 650 MG PO (22:20)
[2021-06-10] MEDS: VANCOMYCIN 750 MG/150 ML PIGGYBACK 150 MG IV (23:56)
[2021-06-11] VITALS (17 sets, daily range): BP systolic 68–122; BP diastolic 43–75; PULSE 45–560; RESP 14–20; TEMP 35.8–36.7; O2SAT 97–100; BMI 31.0
--- NOTE | 2021-06-11 00:20 | PM.HP.1 ---
History of Present Illness History of Present Illness Date Patient Seen: 06/10/21 Time Patient Seen: 21:34 Chief complaint: Abcess on back of arm x2 Narrative: Macarena Banuelos is a 36-year-old female with only a medical history of daily smoker and heroin IV drug abuse who presented to the ED with a chief complaint of a worsening, painful and foul-smelling abscess and swelling of her left arm.? She states that she had injected in that arm about a week ago and symptoms have been worsening since then.? For the past few days she has had very little to eat or drink due to nausea with a poor appetite and subjective fevers.?She reports that she last used yesterday. Patient denies chest pain, shortness of breath, dizziness, weakness, lightheaded, vomiting, and abdominal pain. The ED reported She has been NPO for at least 24 hours. Patient's vitals upon admit temp 98?, BP 122/77, HR 116, R 20, O2 saturation 100% on room air. Patient had a white count of 17 with a left shift neutrophils 14,000, mono feels 1300, sodium was 134, chloride 97, bicarb 33, glucose 112, liver WNL, lipase and procalcitonin WNL. Left humerus x-ray was negative for any acute processes. Dr. Lange general surgeon consulted and accepted patient in ED, admitted to the hospital service. Patient admitted for left arm cellulitis with abscess secondary to IV drug use. Patient History Medical History (Updated 06/11/21 @ 00:51 by JOSIE Mendez) Drug abuse IVDU (intravenous drug user) Obesity (BMI 30.0-34.9) Opioid use disorder Tobacco abuse Surgical History (Updated 06/11/21 @ 00:51 by CLARI Mendez-JOSE J) History of appendectomy History of cholecystectomy History of tonsillectomy No pertinent past surgical history Family & Social History Family History Mother Diabetes mellitus Cancer Father SHAYNE (obstructive sleep apnea) Social History: household members significant other Prior Living Arrangements Mobile home Safety & Behavioral: Feels Safe in Current Yes Environment Been Physically Hurt or No Threatened By a Person Suicidal Ideation Description None Suicide Plan Description No Plan Tobacco & Substance use: Tobacco type cigarettes Smoking Status Current every day smoker Smoking packs per day 1 alcohol intake never alcohol intake frequency holiday/special occasion Substance Use Type heroin IVDU Meds Home Medications and Allergies Home Medications Medication Instructions Recorded Confirmed Type No Known Home Medications 06/10/21 06/10/21 History Allergies Allergy/AdvReac Type Severity Reaction Status Date / Time Sulfa (Sulfonamide Allergy Verified 06/10/21 17:13 Antibiotics) Review of Systems Review of Systems Narrative: All 12 point systems reviewed with the patient and are negative except otherwise documented. Exam Vital Signs (past 8 hours): - 06/10/21 17:15 06/10/21 21:27 Temperature 98.0 F 97.4 F L Pulse Rate 116 H 74 Respiratory Rate 20 16 Blood Pressure 122/77 105/62 Pulse Oximetry 100 97 Oxygen Delivery Method Room Air Oxygen Flow Rate 0 Narrative Exam Narrative: General: Patient is a moderatly ill appearing female, that appears older than stated age, sleeping, in acute no distress at this time. HEENT: Normocephalic, atraumatic, extraocular muscles intact, oral pharynx is clear and mucous membranes are dry. Neck is supple and symmetric, trachea is midline, no adenopathy, no thyroid enlargement, nontender, no masses palpated. Negative for JVD Chest: Normal AP diameter and contour without kyphoscoliosis, no nasal flaring, retractions, or tachypneic labored Lungs: Auscultation of all lung velez are clear without adventitious sounds, wheezes, rhonchi, or rales. Cardio: regular rate and rhythm without murmur, rubs, or gallops, no carotid bruit, no cardiac pulsations present. Abdomen: Soft nontender, negative for organomegaly, or masses. Bowel sounds are present in all 4 quadrants without guarding or rebound, no CVA tenderness. Musculoskeletal: Muscle strength and tone are equal within normal limits, no deformity, crepitus, effusions, cyanosis, clubbing or edema present. Full range of motion intact radial and pedal pulses are normal. Extremity: Large, 15 cm fluctuant mass consistent with abscess, foul-smelling with significant surrounding induration and erythema.? Compartments are soft, she is neurovascularly intact Neuro: Alert and orientated x3, sensation to touch intact, no gross deficits noted of cranial nerves. Psych: Patient has a moderate kept appearance, appropriate affect, mental status attitude thought context and judgment are appropriate for age. Objective Labs Result Diagrams: 06/10/21 18:10 06/10/21 18:10 Labs: Laboratory Results - last 24 hr 06/10/21 06/10/21 06/10/21 18:10 18:10 18:10 WBC 17.0 H RBC 4.78 Hgb 12.6 Hct 36.7 MCV 76.7 L MCH 26.4 MCHC 34.4 RDW 14.1 Plt Count 341 Neut % (Auto) 82.6 H Lymph % (Auto) 8.7 L [place] % (Auto) 7.9 Eos % (Auto) 0.5 L Baso % (Auto) 0.3 Neut # (Auto) 23817 H Lymph # (Auto) 1500 [place] # (Auto) 1300 H Eos # (Auto) 100 Baso # (Auto) 0 Sodium 134 L Potassium 4.1 Chloride 97 L Carbon Dioxide 33 H BUN 9 Creatinine 0.73 Estimated GFR > 60.0 BUN/Creatinine Ratio 12.3 Glucose 112 H Lactate 1.2 Calcium 9.0 Magnesium Total Bilirubin 0.5 AST 22 ALT 10 Alkaline Phosphatase 102 Total Protein 7.9 Albumin 4.0 Globulin 3.9 Albumin/Globulin Ratio 1.0 Lipase 21 L Procalcitonin 0.08 Nasal Screen MRSA (PCR) SARS-CoV-2 (PCR) 06/10/21 06/10/21 06/10/21 18:10 18:40 22:35 WBC RBC Hgb Hct MCV MCH MCHC RDW Plt Count Neut % (Auto) Lymph % (Auto) [place] % (Auto) Eos % (Auto) Baso % (Auto) Neut # (Auto) Lymph # (Auto) [place] # (Auto) Eos # (Auto) Baso # (Auto) Sodium Potassium Chloride Carbon Dioxide BUN Creatinine Estimated GFR BUN/Creatinine Ratio Glucose Lactate Calcium Magnesium 2.1 Total Bilirubin AST ALT Alkaline Phosphatase Total Protein Albumin Globulin Albumin/Globulin Ratio Lipase Procalcitonin Nasal Screen MRSA (PCR) Negative for mrsa SARS-CoV-2 (PCR) Negative Assessment & Plan Assessment & Plan narrative: Macarena Banuelos is a 36-year-old female with only a medical history of 1PPD smoker and heroin IV drug abuse who presented to the ED with a chief complaint of a worsening, painful and foul-smelling cellulitis/abscess and swelling of her left arm. Patient requires hospital admission to receive IV antibiotics and surgical I&D per Dr. Lange for abscess and cellulitis of the left arm. 1. Abscess cellulitis, left arm, acute, present on admission -consult for Dr. Lange placed -patient on NS at 80 cc/HR -NPO at midnight -vancomycin per pharmacy -anti-inflammatory , antimetic, and pain management -Elevate arm on pillows 2. IV drug use, heroin, acute on chronic, present on admission -patient education regarding cessation of substance abuse -referral UX DESIGN MANAGER for addiction assessment 3. Tobacco abuse, acute on chronic, present on admission -patient offered nicotine patch-refused -patient education regarding tobacco cessation 4. Obesity as evidence by BMI of 31, acute on chronic, present on admission -dietary consult placed Code status:Full Surrogate decision maker: Anastasiia Mosquera Partner COVID PCR:Negative COVID vaccination: Unknown DVT/VTE prophylaxis:Medication held due to pending OR, SCD only Disposition: Patient admitted to acute care, expected length of stay more than 2 midnights. I have utilized all available immediate resources to obtain, update, or review the patient's current medications. I confirmed that the patient's advanced care plan is present, Code status is documented and/or surrogate decision maker is listed in the patient's medical record. Time Spent With Patient Critical Care time: I spent a total of [] minutes of critical care time on this patient's care today; this time is exclusive of procedural time. Quality VTE Deep Vein Thrombosis/Pulmonary Embolism Present on Admission: No
[2021-06-11] MEDS: METHADONE 10 MG TABLET PO ×2 (00:38→08:59)
[2021-06-11 06:03] LABS: Add Manual Diff / Slide Review NO; Basophils Absolute Auto 0 /uL (0-100); Basophils Percent Auto 0.2 % (0-2); Eosinophils Absolute Auto 100 /uL (0-450); Eosinophils Percent Auto 1.2 % (2-4); Hematocrit 32.1 % (36-46); Hemoglobin 10.8 g/dL (12.0-16.0); Lymphocytes Absolute Auto 1700 /uL (1100-4500); Lymphocytes Percent Auto 14.8 % (25-40); Mean Corpuscular HGB Conc 33.8 % (30-36); Mean Corpuscular Hemoglobin 26.1 PG (26-34); Mean Corpuscular Volume 77.2 fL (80-100); Monocytes Absolute Auto 800 /uL (0-900); Monocytes Percent Auto 7.5 % (3-14); Neutrophils Absolute Auto 8600 /uL (1500-7000); Neutrophils Percent Auto 76.3 % (50-75); Platelet Count 311 X10^3/uL (150-400); Red Blood Cell Count 4.15 X10^6/uL (4.0-5.2); Red Cell Distribution Width 13.8 % (11.6-14.8); White Blood Cell Count 11.3 X10^3/uL (4.5-11.0)
[2021-06-11 06:23] LABS: INR 1.4 (0.9-1.3); Prothrombin Time 15.6 SECONDS (10.1-12.7)
[2021-06-11 06:25] LABS: PTT Partial Thromboplastin Tim 29 SECONDS (26.4-36.2)
[2021-06-11 06:28] LABS: Alanine Aminotransferase 8 IU/L (<35); Albumin Globulin Ratio 0.9 (1.0-2.8); Alkaline Phosphatase 76 U/L (38-126); Aspartate Aminotransferase 18 IU/L (14-36); BUN Creatinine Ratio 13.1 (6-22); Bilirubin Total 0.4 mg/dL (0.2-1.3); Blood Urea Nitrogen 8 mg/dL (7-17); Calcium 8.3 mg/dL (8.4-10.2); Carbon Dioxide 31 mmol/L (22-32); Chloride 104 mmol/L (98-107); Estimated Glomerular Filt Rate > 60.0 mL/min (>60); Globulin 3.3 g/dL (1.7-4.1); Glucose 90 mg/dL (70-100); HEMOLYSIS < 15 (0-50); Potassium 3.5 mmol/L (3.4-5.1); Sodium 137 mmol/L (137-145); Total Protein 6.3 g/dL (6.3-8.2)
[2021-06-11 08:50] LABS: Pregnancy Test Urine Negative (Negative)
[2021-06-11 08:54] LABS: Appearance Urine UA SL CLOUDY; Bilirubin Urine UA NEGATIVE (NEGATIVE); Color Urine UA YELLOW; Glucose Urine UA NEGATIVE (Negative); Ketones Urine UA 1+ (NEGATIVE); Leukocyte Esterase Urine UA NEGATIVE (NEGATIVE); Nitrite Urine UA NEGATIVE (Negative); Occult Blood Urine UA NEGATIVE (Negative); Protein Urine UA TRACE (Negative); Urobilinogen Urine UA 0.2 E.U./dL (0.2)
[2021-06-11] MEDS: HYDROMORPHONE 1 MG INJ IV ×3 (08:58→22:54)
[2021-06-11] MEDS: ACETAMINOPHEN 325 MG TABLET 650 MG PO ×3 (08:59→20:15)
[2021-06-11 09:04] LABS: RBC Urine 0-1/HPF (0-5/HPF); WBC Urine 1-5/HPF (0-5/HPF)
[2021-06-11 09:05] LABS: Bacteria Urine Few (2-10); Culture Indicated Urine Cult Not Indicated; Squamous Epithelial Cell Urine 1-5 /HPF (0-5/HPF); Transitional Epi Cells Urine 0-1/HPF (0-5/HPF)
[2021-06-11 09:07] LABS: Hyaline Casts Urine 0-1/LPF
[2021-06-11] MEDS: POTASSIUM CHLORIDE 20 MEQ TAB 40 MEQ PO (09:07)
[2021-06-11] MEDS: VANCOMYCIN TROUGH 1 REQUEST MISC (10:30)
[2021-06-11 11:52] LABS: Vancomycin Random 10.9 ug/mL (10-40)
[2021-06-11] MEDS: LACTATED RINGERS 1,000 ML 42 ML IV (12:24)
--- NOTE | 2021-06-11 12:31 | PM.CN ---
History of Present Illness Consult details Date Patient Seen: 06/11/21 Time Patient Seen: 12:31 Chief complaint: Abcess on back of arm x2 Reason for consult: Left arm abscess Narrative: The patient is a 36-year-old woman with history of IV drug abuse who presented with a draining, purulent left arm abscess. She has had prior abscesses but she has never had to go to the operating room for drainage. Meds Home Medications and Allergies Home Medications Medication Instructions Recorded Confirmed Type No Known Home Medications 06/10/21 06/10/21 History Allergies Allergy/AdvReac Type Severity Reaction Status Date / Time Sulfa (Sulfonamide Allergy Verified 06/10/21 17:13 Antibiotics) Exam Vital Signs (past 8 hours): - 06/11/21 05:00 06/11/21 08:00 06/11/21 11:00 Temperature 97.6 F 96.4 F L Pulse Rate 74 53 L Respiratory Rate 20 16 Blood Pressure 99/63 97/54 L Pulse Oximetry 98 98 98 06/11/21 12:09 06/11/21 12:18 Temperature 97.1 F L Pulse Rate 60 Respiratory Rate 20 Blood Pressure 95/60 Pulse Oximetry 98 97 Oxygen Delivery Method Room Air Oxygen Flow Rate 0 Narrative Exam Narrative: There is an abscess draining from the left lateral arm with multiple skin breaks draining purulent foul-smelling fluid Objective Labs Result Diagrams: 06/11/21 05:20 06/11/21 05:20 Labs: Laboratory Results - last 24 hr 06/10/21 06/10/21 06/10/21 18:10 18:10 18:10 WBC 17.0 H RBC 4.78 Hgb 12.6 Hct 36.7 MCV 76.7 L MCH 26.4 MCHC 34.4 RDW 14.1 Plt Count 341 Neut % (Auto) 82.6 H Lymph % (Auto) 8.7 L [place] % (Auto) 7.9 Eos % (Auto) 0.5 L Baso % (Auto) 0.3 Neut # (Auto) 94508 H Lymph # (Auto) 1500 [place] # (Auto) 1300 H Eos # (Auto) 100 Baso # (Auto) 0 PT INR APTT Sodium 134 L Potassium 4.1 Chloride 97 L Carbon Dioxide 33 H BUN 9 Creatinine 0.73 Estimated GFR > 60.0 BUN/Creatinine Ratio 12.3 Glucose 112 H Lactate 1.2 Calcium 9.0 Magnesium Total Bilirubin 0.5 AST 22 ALT 10 Alkaline Phosphatase 102 Total Protein 7.9 Albumin 4.0 Globulin 3.9 Albumin/Globulin Ratio 1.0 Lipase 21 L Procalcitonin 0.08 Urine Color Urine Appearance Urine pH Ur Specific [place] Urine Protein Urine Glucose (UA) Urine Ketones Urine Occult Blood Urine Nitrate Urine Bilirubin Urine Urobilinogen Ur Leukocyte Esterase Urine RBC Urine WBC Ur Squamous Epith Cells Ur Transition Epith Cell Urine Bacteria Hyaline Casts Ur Culture Indicated? Urine Test Nasal Screen MRSA (PCR) Random Vancomycin SARS-CoV-2 (PCR) 06/10/21 06/10/21 06/10/21 18:10 18:40 22:35 WBC RBC Hgb Hct MCV MCH MCHC RDW Plt Count Neut % (Auto) Lymph % (Auto) [place] % (Auto) Eos % (Auto) Baso % (Auto) Neut # (Auto) Lymph # (Auto) [place] # (Auto) Eos # (Auto) Baso # (Auto) PT INR APTT Sodium Potassium Chloride Carbon Dioxide BUN Creatinine Estimated GFR BUN/Creatinine Ratio Glucose Lactate Calcium Magnesium 2.1 Total Bilirubin AST ALT Alkaline Phosphatase Total Protein Albumin Globulin Albumin/Globulin Ratio Lipase Procalcitonin Urine Color Urine Appearance Urine pH Ur Specific [place] Urine Protein Urine Glucose (UA) Urine Ketones Urine Occult Blood Urine Nitrate Urine Bilirubin Urine Urobilinogen Ur Leukocyte Esterase Urine RBC Urine WBC Ur Squamous Epith Cells Ur Transition Epith Cell Urine Bacteria Hyaline Casts Ur Culture Indicated? Urine Test Nasal Screen MRSA (PCR) Negative for mrsa Random Vancomycin SARS-CoV-2 (PCR) Negative 06/11/21 06/11/21 06/11/21 05:20 05:20 05:20 WBC 11.3 H RBC 4.15 Hgb 10.8 L Hct 32.1 L MCV 77.2 L MCH 26.1 MCHC 33.8 RDW 13.8 Plt Count 311 Neut % (Auto) 76.3 H Lymph % (Auto) 14.8 L [place] % (Auto) 7.5 Eos % (Auto) 1.2 L Baso % (Auto) 0.2 Neut # (Auto) 8600 H Lymph # (Auto) 1700 [place] # (Auto) 800 Eos # (Auto) 100 Baso # (Auto) 0 PT 15.6 H INR 1.4 H APTT 29 Sodium 137 Potassium 3.5 Chloride 104 Carbon Dioxide 31 BUN 8 Creatinine 0.61 Estimated GFR > 60.0 BUN/Creatinine Ratio 13.1 Glucose 90 Lactate Calcium 8.3 L Magnesium Total Bilirubin 0.4 AST 18 ALT 8 Alkaline Phosphatase 76 Total Protein 6.3 Albumin 3.0 L Globulin 3.3 Albumin/Globulin Ratio 0.9 L Lipase Procalcitonin Urine Color Urine Appearance Urine pH Ur Specific [place] Urine Protein Urine Glucose (UA) Urine Ketones Urine Occult Blood Urine Nitrate Urine Bilirubin Urine Urobilinogen Ur Leukocyte Esterase Urine RBC Urine WBC Ur Squamous Epith Cells Ur Transition Epith Cell Urine Bacteria Hyaline Casts Ur Culture Indicated? Urine Test Nasal Screen MRSA (PCR) Random Vancomycin SARS-CoV-2 (PCR) 06/11/21 06/11/21 06/11/21 08:20 08:20 10:55 WBC RBC Hgb Hct MCV MCH MCHC RDW Plt Count Neut % (Auto) Lymph % (Auto) [place] % (Auto) Eos % (Auto) Baso % (Auto) Neut # (Auto) Lymph # (Auto) [place] # (Auto) Eos # (Auto) Baso # (Auto) PT INR APTT Sodium Potassium Chloride Carbon Dioxide BUN Creatinine Estimated GFR BUN/Creatinine Ratio Glucose Lactate Calcium Magnesium Total Bilirubin AST ALT Alkaline Phosphatase Total Protein Albumin Globulin Albumin/Globulin Ratio Lipase Procalcitonin Urine Color Yellow Urine Appearance Sl cloudy Urine pH 5.0 Ur Specific [place] 1.020 Urine Protein Trace H Urine Glucose (UA) Negative Urine Ketones 1+ H Urine Occult Blood Negative Urine Nitrate Negative Urine Bilirubin Negative Urine Urobilinogen 0.2 Ur Leukocyte Esterase Negative Urine RBC 0-1/hpf Urine WBC 1-5/hpf Ur Squamous Epith Cells 1-5 /hpf Ur Transition Epith Cell 0-1/hpf Urine Bacteria Few (2-10) H Hyaline Casts 0-1/lpf Ur Culture Indicated? Cult not indicated Urine Test Negative Nasal Screen MRSA (PCR) Random Vancomycin 10.9 SARS-CoV-2 (PCR) [facility] Medical History (Updated 06/11/21 @ 12:32 by Omid Ayon MD) Drug abuse IVDU (intravenous drug user) Obesity (BMI 30.0-34.9) Opioid use disorder Tobacco abuse Surgical History (Updated 06/11/21 @ 00:51 by MIREYA Mendez) History of appendectomy History of cholecystectomy History of tonsillectomy No pertinent past surgical history Family History Mother Diabetes mellitus Cancer Father SHAYNE (obstructive sleep apnea) Social History household members: significant other Tobacco & Substance Use Smoking Status: Current every day smoker alcohol intake: never substance use type: heroin and IV drugs Assessment & Plan Assessment and plan (1) Abscess of skin or subcutaneous tissue: Qualifiers: Site of cutaneous abscess: extremity Site of cutaneous abscess of extremity: upper extremity Laterality: left Qualified Code(s): L02.414 - Cutaneous abscess of left upper limb Status: Acute (2) Opioid use disorder: Status: Acute Plan Incision and drainage in the operating room. Full make an incision large enough to completely evacuate all of the necrotic and purulent material. Will pack with Kerlix dressing which will have to be changed into the wound granulates in. She understands the risks including nerve injury and wishes to proceed. Time Spent With Patient Critical Care time: I spent a total of [] minutes of critical care time on this patient's care today; this time is exclusive of procedural time.
--- NOTE | 2021-06-11 12:55 | SUR.OPER ---
Supine on padded OR bed, head on pillow, right arm secured on padded arm board at <90 degrees abduction,left arm draped free on black hand table, legs uncrossed, safety belt at thigh, tape over blanket over lower legs.
[2021-06-11] MEDS: BUPIVACAINE LIPOSOME 266 MG/20 ML VIAL INJ (13:00)
--- NOTE | 2021-06-11 13:16 | PM.OP.1 ---
Operative Date/Time/Diagnoses Date of procedure: 06/11/21 Time of procedure: 13:16 Pre-op diagnosis: Left arm subcutaneous abscess Post-op diagnosis: same Procedure & Clinicians Procedure: Incision and drainage of left arm subcutaneous abscess Same procedure as scheduled: Yes Surgeon: Omid Ayon Anesthesia Type: General Operative Notes Estimated Blood Loss (mL): 50 Procedure in detail: The patient was on antibiotics. The patient was brought to the operating room, placed on the table in the supine position and general anesthesia was induced. The left arm was prepped and draped in the usual fashion and a time-out was performed. Please am and the arm. There were multiple openings draining purulent fluid. The largest opening was near the superior aspect of the inflamed area and several smaller openings were located inferiorly. We made a 10 cm incision from the largest opening to the 2nd largest opening. We took 2 culture swabs from the deep portion of wound. We removed necrotic tissue, most likely adipose tissue. We then packed the wound initially with a lap pad. We injected some Exparel into the wound edge in the dermis and subcutaneous adipose tissue. The superior aspect of the wound contained additional necrotic debris up to the deltoid and serrated extend the incision superiorly 2-3 cm. Additional necrotic tissue was removed. Finally we removed lap pads and packed with Kerlix. An ABD pad was applied over the Kerlix packing and the arm was wrapped with an Wai wrap. Post-operative Condition: stable Disposition: PACU
--- NOTE | 2021-06-11 13:40 | CM.DANOTE ---
DCP Assessment: Patient is a 36 yr old female who is here for Left arm Cellulites. patient has a HX of IV drug use. CM met with patient at the bedside and explained role. patient was alert and oriented x4 during meeting. Patient currently lives in a two bedroom house with her boy friend and a roommate. patient stated she does use IV drugs and last used right before going into the ED for this hospitalization. Patient stated she is open to resources for getting clean. CM gave the patient information on options for [facility]. Patient stated she will look at them when she has a chance to review it. patient states she is completely independent with all her ADLs does not use DME and does not need anything for DC home. I: [employer] and medicaid Plan: DC home with boyfriend when medically stable- did take information on treatment options but is not wanting to peruse anything from the hospital at this time. patient may need IV abx vs PO ABX but CM department will follow to help determine what is needed at DC Rachell Hwang RNdirector of sustainability Discharge Planning/Care Management CM Discharge Assessment Start: 06/11/21 13:26 Freq: Status: Active Protocol: Document 06/11/21 13:26 HS (Rec: 06/11/21 13:40 HS [id number]) Discharge Planning Assessment Assigned Service Agent Rachell Hwang RNassessment services manager DPOA/Assigned Designee Name Klaus Mosquera ( boy friend) Contact Information [phone] Advance Directives? No History Provided By Patient,Medical Record Prior Living Arrangements Mobile home Comment Patient lives in [place] with her boyfriend Klaus and a roommate Household Members significant other Type of transporation used prior to Public Transportation admit Independent with ADL's Yes Is patient alert and oriented? Yes Caregiver for Another No Barriers to Discharge Yes Comment DC is pending wound care management- IV abx vs PO abx Discharge Plan Home Referrals Initiated None needed Whiteboard Updated in Patient Room with Yes name and ext. # of Service Agent Review Status In Process Next Review Type Continued Stay Review
[2021-06-11] MEDS: OXYCODONE IR 5 MG TABLET PO (13:49)
[2021-06-11] MEDS: VANCOMYCIN 1,000 MG/200 ML PIGGYBACK 200 MG IV ×2 (14:46→20:14)
[2021-06-11] MEDS: SODIUM CHLORIDE 0.9% 1,000 ML 80 ML IV (14:47)
[2021-06-12] VITALS (9 sets, daily range): BP systolic 100–114; BP diastolic 58–69; PULSE 63–67; RESP 14–18; TEMP 36.1–36.6; O2SAT 95–100
[2021-06-12] MEDS: HYDROMORPHONE 1 MG INJ IV ×4 (05:24→22:59)
[2021-06-12] MEDS: VANCOMYCIN 1,000 MG/200 ML PIGGYBACK 200 MG IV ×2 (05:24→17:29)
--- NOTE | 2021-06-12 07:38 | PC.NURSE ---
back note from 06/11/21: pt returned from surgery and reported no pain and asked when she could go home, nurse informed her she would probably need to stay atleast one night for antibiotics and would wait for doctors orderes. Nurse advised pt to let her know if she started to have pain. pt later reported pain of 9-10 and was shaking and trying to get up to use the bathroom as nurse was scanning in pain meds. pt was given dilauded around 1740 and then assisted to bathroom with IV pump. pt agreeable.
[2021-06-12] MEDS: SODIUM CHLORIDE 0.9% 1,000 ML 80 ML IV (07:52)
[2021-06-12] MEDS: ENOXAPARIN 40 MG/0.4 ML SYRINGE SUBCUT (09:22)
[2021-06-12] MEDS: ACETAMINOPHEN 325 MG TABLET 650 MG PO (09:22)
[2021-06-12] MEDS: METHADONE 10 MG TABLET PO (09:22)
--- NOTE | 2021-06-12 10:10 | PC.NURSE ---
Addendum entered by Hillary Adams R.N. 06/12/21 10:12: nurse checked on pt and wound is wrapped in gauze and is CDI, pt comfortable and resting in bed Original Note: provider notified of MRSA results and nurse was advised that full precautions were not necessary due to infection is in the wound and wound is packed, wrapped and closed up
[2021-06-12] MEDS: ALTEPLASE 2 MG/2 ML VIAL IV (15:11)
--- NOTE | 2021-06-12 15:15 | CM.DPC ---
MIKAYLA Cont: Discussed patient during team rounds. Patient had I&D of extremity. She is continuing on IV ABO. It is unknown as to how long she will need IV ABO, but would be difficult for a facility to accept for technician terminal and repeater ABO treatment due to her drug history. Treatment will also depend upon culture and sensitivities. Resources were given to her by MIKAYLA Lovett, for substance abuse already. P: AARONP to continue to follow, and will be available for any resources needed at discharge. Luna Montanez RN/Survey Research Teacher
--- NOTE | 2021-06-12 16:13 | P.PN_ITS ---
Subjective Subjective Interval history: Patient reports feeling overall better this morning in regards to her left upper arm cellulitis and abscess, especially after the incision and drainage by surgery. Reports good PO intake. Exam Vital Signs (past 8 hours): - 06/12/21 08:33 06/12/21 11:42 06/12/21 15:42 Temperature 96.9 F L Pulse Rate 67 Respiratory Rate 18 Blood Pressure 106/69 Pulse Oximetry 100 98 98 Oxygen Delivery Method Room Air Oxygen Flow Rate 0 Const Other: Patient laying in bed comfortably upon my entering the room, in no apparent, acute distress. Eyes Other: No scleral icterus appreciated. Neck Other: No carotid bruits appreciated. Resp Other: Lungs clear to auscultation bilaterally. Cardio Other: RRR. S1 and S2 heart sounds normal. No extra heart sounds or murmurs appreciated. No peripheral edema noted. GI Other: Soft, non-distended, non-tender. Bowel sounds present. Skin Other: Left upper arm bandaged, securely in place, clean, dry and intact. Objective Labs Result Diagrams: 06/11/21 05:20 06/11/21 05:20 [facility] Medical History (Updated 06/11/21 @ 12:32 by Omid Ayon MD) Drug abuse IVDU (intravenous drug user) Obesity (BMI 30.0-34.9) Opioid use disorder Tobacco abuse Surgical History (Updated 06/11/21 @ 00:51 by CLARI MendezJOSE J) History of appendectomy History of cholecystectomy History of tonsillectomy No pertinent past surgical history Family History Mother Diabetes mellitus Cancer Father SHAYNE (obstructive sleep apnea) Social History household members: significant other Smoking Status: Current every day smoker alcohol intake: never substance use type: heroin and IV drugs Assessment & Plan Assessment & Plan narrative: Macarena Banuelos is a 36-year-old female with only a medical history of 1PPD smoker and heroin IV drug abuse who presented to the ED with a chief complaint of a worsening, painful and foul-smelling cellulitis/abscess and swelling of her left arm, status post incision and drainage on Jun 11. Currently, clinically stable on IV vancomycin. 1. Abscess cellulitis, left arm, acute, status post incision and drainage on Jun 11 -appreciate general surgery assistance and recommendations -vancomycin per pharmacy 2. IV drug use, heroin, acute on chronic, present on admission -patient education regarding cessation of substance abuse -referral COMMUNITY ASSOCIATION MANAGER for addiction assessment 3. Tobacco abuse, acute on chronic, present on admission -patient offered nicotine patch but refused -patient education regarding tobacco cessation 4. Obesity as evidence by BMI of 31, acute on chronic, present on admission -dietary consult placed Code status:Full Surrogate decision maker: Anastasiia Mosquera Partner I have utilized all available immediate resources to obtain, update, or review the patient's current medications. I confirmed that the patient's advanced care plan is present, Code status is documented and/or surrogate decision maker is listed in the patient's medical record. Time Spent With Patient Critical Care time: I spent a total of [] minutes of critical care time on this patient's care today; this time is exclusive of procedural time. Quality VTE Deep Vein Thrombosis/Pulmonary Embolism Present on Admission: No MIPS - Admit I confirm the patient?s Advance Care Plan is present, Code status is documented, Surrogate decision maker is in patient?s record [If Yes, STOP here]: Yes
--- NOTE | 2021-06-12 17:47 | PC.SBAR ---
Addendum entered by Hillary Adams R.N. 06/12/21 18:18: dosing of alteplase 2mg was given by PICC trained nurse from PACU: Tabitha and she said she should be available on 06/13/21 if second dosing needed, call PACU to reach her. Original Note: SITUATION: [Midline not drawing back, flushes well] BACKGROUND: [alteplase was adminstered per orders today, needs second dose, however pt needs vanco, will wait to do next dose of alteplase 2mg tomorrow if still needed, provider aware and okay to wait. ] ASSESSMENT: [pt tolerating midline well, no pain at site, flushes well. ] RECOMMENDATION: [nurse spoke with charge nurse and will pass on to AM shift and next shift at report] RESPONSE: [provider aware]
--- NOTE | 2021-06-12 18:01 | DIET.CONS ---
Dietary Consultation Note Admission Date: 06/10/2021 18:38 Assessment: 36y F admitted for arm abscess requiring I&D referred to nutrition for same. RD ordered ONS Rashard slushie bid upon admission for wound care support. RD visited c pt today, pt had consumed >50% of rashard on bedside table. RD reiterated importance of nutrients to support wound care. Pt agreeable to consuming ONS Rashard. Pts appetite otherwise good on general diet. Ht: 162.56 cm Wt: 81.7 kg BMI: 31.0 Last BM: 06/12/21 (06/12/21 16:17) MNA: 13 Juan C Score: 23 Diet: 06/11/21 Dinner Regular [General (Regular) Diet] Diet Modifications: Rashard slushie bid Nutrition Percent Meal Consumed 100% 06/11/21 20:00 Percent Meal Consumed 50% 06/11/21 18:00 Labs: RBC 4.15 X10^6/uL (4.0-5.2) 06/11/21 05:20 Hgb 10.8 g/dL (12.0-16.0) L 06/11/21 05:20 Hct 32.1 % (36-46) L 06/11/21 05:20 Creatinine 0.61 mg/dL (0.52-1.04) 06/11/21 05:20 Lactate 1.2 mmol/L (0.7-2.1) 06/10/21 18:10 Nutrition Diagnosis: Increased nutrient needs for healing (pro, AA, Vits A, C, zinc) r/t arm abscess requiring I&D, pt active IVDU with poor nutrition status. Interventions: 1. Continue ONS Rashard bid Electronically Signed by: Lois Hook 06/12/21 18:01 Clinical Dietitian [address] [id number]
--- NOTE | 2021-06-12 18:56 | PM.EVENT ---
Event Note Date Patient Seen: 06/12/21 Time Patient Seen: 18:56 Event Note: Feels better today Plan to change dressing tomorrow and hopefully discharge home if she is comfortable that point
[2021-06-13] VITALS (8 sets, daily range): BP systolic 99–111; BP diastolic 51–71; PULSE 54–67; RESP 16–21; TEMP 36–36.6; O2SAT 96–100
[2021-06-13] MEDS: VANCOMYCIN 1,000 MG/200 ML PIGGYBACK 200 MG IV ×2 (01:13→10:09)
[2021-06-13] MEDS: SODIUM CHLORIDE 0.9% 1,000 ML 80 ML IV (04:13)
[2021-06-13] MEDS: HYDROMORPHONE 1 MG INJ IV ×4 (05:11→16:11)
[2021-06-13] MEDS: SODIUM CHLORIDE 0.9% FLUSH 10 ML IV (10:09)
[2021-06-13] MEDS: ENOXAPARIN 40 MG/0.4 ML SYRINGE SUBCUT (10:09)
[2021-06-13] MEDS: METHADONE 10 MG TABLET PO (10:09)
--- NOTE | 2021-06-13 13:57 | PM.PN.1 ---
Subjective Subjective Interval history: Patient reports feeling much better after the incision and drainage. Leukocytosis has normalized. She reports good PO intake. She endorses wanting to go home. Surgery plans for wound dressing change today. Exam Vital Signs (past 8 hours): - 06/13/21 06:00 06/13/21 08:45 06/13/21 10:00 Temperature 96.8 F L Pulse Rate 63 Respiratory Rate 16 Blood Pressure 110/66 Pulse Oximetry 98 97 99 Oxygen Delivery Method Room Air Oxygen Flow Rate 0 Narrative Exam Narrative: Const Other: Patient laying in bed comfortably upon my entering the room, in no apparent, acute distress. Eyes Other: No scleral icterus appreciated. Neck Other: No carotid bruits appreciated. Resp Other: Lungs clear to auscultation bilaterally. Cardio Other: RRR. S1 and S2 heart sounds normal. No extra heart sounds or murmurs appreciated. No peripheral edema noted. GI Other: Soft, non-distended, non-tender. Bowel sounds present. Skin Other: Left upper arm bandaged, securely in place, clean, dry and intact. Objective Labs Result Diagrams: 06/11/21 05:20 06/11/21 05:20 [facility] Medical History (Updated 06/11/21 @ 12:32 by Omid Ayon MD) Drug abuse IVDU (intravenous drug user) Obesity (BMI 30.0-34.9) Opioid use disorder Tobacco abuse Surgical History (Updated 06/11/21 @ 00:51 [facility] History of appendectomy History of cholecystectomy History of tonsillectomy No pertinent past surgical history Family History Mother Diabetes mellitus Cancer Father SHAYNE (obstructive sleep apnea) Social History household members: significant other Smoking Status: Current every day smoker alcohol intake: never substance use type: heroin and IV drugs Assessment & Plan Assessment & Plan narrative: Macarena Banuelos is a 36-year-old female with only a medical history of 1PPD smoker and heroin IV drug abuse who presented to the ED with a chief complaint of a worsening, painful and foul-smelling cellulitis/abscess and swelling of her left arm, status post incision and drainage on Jun 11. Currently, clinically stable on IV vancomycin. 1. Abscess cellulitis, left arm, acute, status post incision and drainage on Jun 11 -appreciate general surgery assistance and recommendations -vancomycin per pharmacy, started on Jun 11 2. IV drug use, heroin, acute on chronic, present on admission -patient education regarding cessation of substance abuse -referral [employer] for addiction assessment 3. Tobacco abuse, acute on chronic, present on admission -patient offered nicotine patch but refused -patient education regarding tobacco cessation 4. Obesity as evidence by BMI of 31, acute on chronic, present on admission -dietary consult placed Time Spent With Patient Critical Care time: I spent a total of [] minutes of critical care time on this patient's care today; this time is exclusive of procedural time. Quality VTE Deep Vein Thrombosis/Pulmonary Embolism Present on Admission: No
--- NOTE | 2021-06-13 16:59 | PM.EVENT ---
Event Note Date Patient Seen: 06/13/21 Time Patient Seen: 16:59 Event Note: Dressing changed at bedside. Boyfriend assisted. Instructed them to change the dressing daily with dry gauze until the wound cavity fills and and can no longer be packed.
--- NOTE | 2021-06-13 17:22 | PM.DS.1 ---
History of Present Illness History of Present Illness Chief complaint: Abcess on back of arm x2 Narrative: Macarena Banuelos is a 36-year-old female with only a medical history of daily smoker and heroin IV drug abuse who presented to the ED with a chief complaint of a worsening, painful and foul-smelling abscess and swelling of her left arm.? She states that she had injected in that arm about a week ago and symptoms have been worsening since then.? For the past few days she has had very little to eat or drink due to nausea with a poor appetite and subjective fevers.?She reports that she last used yesterday. Patient denies chest pain, shortness of breath, dizziness, weakness, lightheaded, vomiting, and abdominal pain.? The ED reported She has been NPO for at least 24 hours. Patient's vitals upon admit temp 98?, BP 122/77, HR 116, R 20, O2 saturation 100% on room air.? Patient had a white count of 17 with a left shift neutrophils 14,000, mono feels 1300, sodium was 134, chloride 97, bicarb 33, glucose 112, liver WNL, lipase and procalcitonin WNL.? Left humerus x-ray was negative for any acute processes. Dr. Lange general surgeon consulted and accepted patient in ED, admitted to the hospital service.? Patient admitted for left arm cellulitis with abscess secondary to IV drug use. Discharge Providers Provider Date of admission: 06/10/21 18:38 Discharge Date: 06/13/21 Consults: 06/10/21 21:32 Consult to Dietitian, Adult Routine Comment: Reason For Exam: BMI 31 Consult to Physician Routine Comment: Consulting Provider: Fernie Lange Reason for consultation: Left arm abscess Has provider been notified: Yes 06/11/21 01:00 Consult to [employer] - [employer] Routine Comment: IVDU [employer] Consult: Substance Abuse Assess Discharge provider: Oma Borrego MD Summary Hospital Course Discharge Diagnosis: Macarena Banuelos is a 36-year-old female with only a medical history of 1PPD smoker and heroin IV drug abuse who presented to the ED with a chief complaint of a worsening, painful and foul-smelling cellulitis/abscess and swelling of her left arm, status post incision and drainage on Jun 11. 1. Abscess cellulitis, left arm, acute, status post incision and drainage on Jun 11 -appreciate general surgery assistance and recommendations -vancomycin per pharmacy, started on Jun 11-the patient was going to be discharged on PO clindamycin 450 tid for 5 more days -however, she left before we could give her this prescription 2. IV drug use, heroin, acute on chronic, present on admission -patient education regarding cessation of substance abuse -referral [employer] for addiction assessment 3. Tobacco abuse, acute on chronic, present on admission -patient offered nicotine patch but refused -patient education regarding tobacco cessation 4. Obesity as evidence by BMI of 31, acute on chronic, present on admission -dietary consult placed Exam Vital Signs (past 8 hours): - 06/13/21 10:00 06/13/21 14:00 06/13/21 16:41 Temperature 96.8 F L 97.0 F L 97.8 F Pulse Rate 63 56 L 54 L Respiratory Rate 16 21 16 Blood Pressure 110/66 99/51 L 111/71 Pulse Oximetry 99 98 99 Oxygen Delivery Method Room Air Oxygen Flow Rate 0 Objective Labs Result Diagrams: 06/11/21 05:20 06/11/21 05:20 [facility] Medical History (Updated 06/11/21 @ 12:32 by Omid Ayon MD) Drug abuse IVDU (intravenous drug user) Obesity (BMI 30.0-34.9) Opioid use disorder Tobacco abuse Surgical History (Updated 06/11/21 @ 00:51 [facility] History of appendectomy History of cholecystectomy History of tonsillectomy No pertinent past surgical history Family History Mother Diabetes mellitus Cancer Father SHAYNE (obstructive sleep apnea) Social History household members: significant other Smoking Status: Current every day smoker alcohol intake: never substance use type: heroin and IV drugs Discharge Assessment & Plan Assessment and Plan Assessment: Macarena Banuelos is a 36-year-old female with only a medical history of 1PPD smoker and heroin IV drug abuse who presented to the ED with a chief complaint of a worsening, painful and foul-smelling cellulitis/abscess and swelling of her left arm, status post incision and drainage on Jun 11. Currently, clinically stable on IV vancomycin. 1. Abscess cellulitis, left arm, acute, status post incision and drainage on Jun 11 -appreciate general surgery assistance and recommendations -vancomycin per pharmacy, started on Jun 11-the patient was going to be discharged on PO clindamycin 450 tid for 5 more days -however, she left before we could give her this prescription 2. IV drug use, heroin, acute on chronic, present on admission -patient education regarding cessation of substance abuse -referral [employer] for addiction assessment 3. Tobacco abuse, acute on chronic, present on admission -patient offered nicotine patch but refused -patient education regarding tobacco cessation 4. Obesity as evidence by BMI of 31, acute on chronic, present on admission -dietary consult placed Discharge Plan Discharge Plan Patient Disposition: Home Discharge orders & Medications Prescriptions: New clindamycin HCl 150 mg Capsule 450 mg PO Q8HR 5 Days Qty: 15 0RF Quality VTE Deep Vein Thrombosis/Pulmonary Embolism Present on Admission: No
--- NOTE | 2021-06-13 18:19 | PC.NURSE ---
Discharge note: Dressing changed to LUE post operative site per Dr. Ayon, dressing care and instructions given to significant other. Supplies for dressing care at home given. Midline to LYLE discontinued as ordered. Upon return to room 211 and go through discharge instructions, patient was out of the room no where to be found. damage prevention coordinator and Dr. Elmo finney.
== END 2021-06-13 17:15 | disposition home or self-care (01) | DRG 364 ==
LOC: ED 18:05 → AC 18:39
PROVIDERS: Emergency Medicine; Surgery; Admitting Provider Nurse Practitioner Family; Emergency Provider Emergency Medicine; Referring Provider Emergency Medicine; Visit Provider Nurse Practitioner Family
PROC: 0J9F0ZZ Drainage of Left Upper Arm Subcutaneous Tissue and Fascia, Open Approach (ICD-10-PCS; principal; 2021-06-11 13:00)
DX: L03.114 Cellulitis of left upper limb (principal); M79.89 Other specified soft tissue disorders; F11.90 Opioid use, unspecified, uncomplicated; I96 Gangrene, not elsewhere classified; F17.210 Nicotine dependence, cigarettes, uncomplicated; Z20.822 Contact with and (suspected) exposure to COVID-19
CPT/HCPCS: 10060; 36415; 73060; 80053; 80202; 81001; 81025; 83605; 83690; 83735; 84145; 85025; 85610; 85730; 87040; 87070; 87075; 87077; 87147; 87185; 87186; 87205; 87635; 87797; 94760; 96365; 96372; 96375; 99222; 99284; C9803; C9290; J1170; J1650; J1885; J2405; J2704; J2997; J3010

== ENCOUNTER 2021-07-27 16:09 | Observation (INO) | payer OTHER, MEDICAID, SELFPAY ==
[2021-07-27 16:10] VITALS: BP 144/65; PULSE 114; RESP 18; TEMP 36.8; O2SAT 100; BMI 30.3
[2021-07-27 16:12] VITALS: PULSE 118; O2SAT 96
[2021-07-27 16:13] VITALS: BP 144/66; PULSE 107; O2SAT 100
--- NOTE | 2021-07-27 16:13 | ED_ITS ---
HPI - Skin/Abscess/Foreign Bdy General Chief complaint: Skin/Abscess/Foreign Body Stated complaint: ABSCESS ON RIGHT ARM Time Seen by Provider: 07/27/21 16:10 History of Present Illness HPI narrative: 36-year-old female daily smoker with history of IV drug abuse, and prior skin infections presents with a significant other and a chief complaint of a large painful abscess on her right deltoid for the past few days. She was admitted for surgical incision and drainage a few months ago under similar circumstances on the opposite shoulder. She last injected a few days ago and denies any chance of foreign body. She feels unwell and has nausea and chills but no measured fever. Related Data Previous Rx's Medication Instructions Recorded gabapentin 300 mg capsule 300 mg PO Q8HR #30 cap 07/28/21 (Neurontin) hydromorphone 4 mg tablet 4 mg PO Q6H PRN #20 tab 07/28/21 Allergies Allergy/AdvReac Type Severity Reaction Status Date / Time Sulfa (Sulfonamide Allergy Verified 06/10/21 17:13 Antibiotics) Review of Systems Review of Systems Narrative: GENERAL: Denies chills, fatigue, malaise, fever, sweats. HEENT: Denies sinus pain, ear pain, sore throat, difficulty swallowing, dizziness. RESPIRATORY: Denies dyspnea, cough, wheezing, hemoptysis, sputum. CARDIOVASCULAR: Denies chest pain, palpitations, orthopnea, edema, GASTROINTESTINAL: Denies nausea, vomiting, abdominal pain, diarrhea, constipation, melena. : Denies dysuria, frequency, incontinence, hematuria, urinary retention. MUSCULOSKELETAL: denies weakness, joint pain, or bony pain SKIN: See HPI NEUROLOGIC: Denies weakness, headache, numbness, change in speech, confusion, seizures, incoordination. PSYCHIATRIC: No concerning psychosocial issues. 12 point review of systems is negative except for those stated above Patient History Medical History Drug abuse IVDU (intravenous drug user) Obesity (BMI 30.0-34.9) Opioid use disorder Tobacco abuse Surgical History History of appendectomy History of cholecystectomy History of tonsillectomy No pertinent past surgical history Family History Mother Diabetes mellitus Cancer Father SHAYNE (obstructive sleep apnea) Social History household members: significant other Smoking Status: Current every day smoker alcohol intake: never substance use type: heroin and IV drugs Smoking Status: Current every day smoker alcohol intake frequency: holidays/special occasions only Substance Use Type: heroin Exam Narrative Exam Narrative: GENERAL: [36] year old patient appears stated age. Well-developed patient, in mild distress. tearful, obviously in pain HEAD: Atraumatic. Normocephalic. EYES: Pupils equal round and reactive. Extraocular motions intact. No scleral icterus. No injection or drainage. ENT: Nose without bleeding, purulent drainage. Throat without erythema, tonsillar hypertrophy or exudate. Airway patent. NECK: Trachea midline. Non tender CARDIOVASCULAR: Regular rate and rhythm without murmurs, gallops, or rubs. RESPIRATORY: Clear to auscultation. Breath sounds equal bilaterally. No wheezes, rales, or rhonchi. GASTROINTESTINAL: Abdomen soft, non-tender, nondistended. EXTREMITIES: No edema or joint tenderness. BACK: Nontender without deformity or crepitance. No flank tenderness. NEURO: AOx3. SKIN: very large fluctuant abscess including her entire deltoid region down to mid point of the forearm, significant surrounding erythema, warmth and tenderness, compartments are soft, no numbness, tingling or weakness. Initial Vital Signs Initial Vital Signs: Vital Signs Temperature 98.3 F 07/27/21 16:10 Pulse Rate 114 H 07/27/21 16:10 Respiratory Rate 18 07/27/21 16:10 Blood Pressure 144/65 H 07/27/21 16:10 Pulse Oximetry 100 07/27/21 16:10 Course Orders Ordered: Discontinued Medications Celecoxib (Celecoxib 200 Mg Capsule) 200 mg PO BID [facility] Last Admin: 07/28/21 16:52 Dose: 200 mg Documented by: CHRISTA Fentanyl (Fentanyl 250 Mcg/5 Ml Inj) 0 mcg IV Q5M PRN PRN Reason: Pain, Moderate (4-6) Gabapentin (Gabapentin 300 Mg Capsule) 300 mg PO Q8HR [facility] Last Admin: 07/28/21 15:53 Dose: 300 mg Documented by: Admin: 07/28/21 05:28 Dose: 300 mg Documented by: Admin: 07/27/21 23:25 Dose: 300 mg Documented by: NARCISA Heparin Sodium (Porcine) (Heparin 5,000 Unit/Ml Vial) 5,000 unit SUBCUT BID [facility] Last Admin: 07/28/21 10:09 Dose: 5,000 unit Documented by: Admin: 07/27/21 23:32 Dose: Not Given Documented by: NARCISA Hydromorphone HCl (Hydromorphone 2 Mg Inj) 0.5 mg IV Q5MIN PRN PRN Reason: Pain, Mild (1-3) Vancomycin HCl/Dextrose (Vancomycin) 1,500 mg in 300 mls @ 200 mls/hr IV NOW ONE Stop: 07/27/21 21:39 Last Infusion: 07/28/21 03:27 Dose: 0 mls/hr Documented by: Admin: 07/27/21 23:25 Dose: 200 mls/hr Documented by: NARCISA Lactated Ringer's (Lactated Ringers) 1,000 mls @ 100 mls/hr IV CONT [facility] Last Admin: 07/27/21 23:22 Dose: 100 mls/hr Documented by: NARCISA Vancomycin HCl/Dextrose (Vancomycin) 1,500 mg in 300 mls @ 200 mls/hr IV Q12H [facility] Last Admin: 07/28/21 17:36 Dose: Not Given Documented by: CASIE Vancomycin HCl (Vancomycin) 1,250 mg in 250 mls @ 250 mls/hr IV Q8H [facility] Last Admin: 07/28/21 15:53 Dose: 250 mls/hr Documented by: CASIE Ketorolac Tromethamine (Ketorolac 30 Mg/Ml Vial) 15 mg IV Q6H [facility] Stop: 07/30/21 20:29 Last Admin: 07/28/21 10:11 Dose: 30 mg Documented by: Admin: 07/28/21 05:28 Dose: 15 mg Documented by: Admin: 07/27/21 23:25 Dose: 15 mg Documented by: NARCISA Naloxone HCl (Naloxone 0.4 Mg/Ml Vial) 0.2 mg IV Q2MIN PRN PRN Reason: Opiate Reversal Ondansetron HCl (Ondansetron 4 Mg/2 Ml Inj) 4 mg IV NOW PRN PRN Reason: Nausea And Vomiting Oxycodone HCl (Oxycodone Ir 5 Mg Tablet) 15 mg PO Q4HR PRN PRN Reason: Pain, Severe (7-10) Last Admin: 07/28/21 14:16 Dose: 15 mg Documented by: Admin: 07/27/21 23:26 Dose: 15 mg Documented by: NARCISA Vancomycin HCl (Vancomycin Peak) 1 request MIS 1700 [facility] Stop: 07/29/21 17:01 Vancomycin HCl (Vancomycin Trough) 1 request MIS [id number] [facility] Stop: 07/29/21 14:31 Consultations Consultation #1: Dr. Baron happy to accept patient on her service, will write orders shortly MDM - Skin/Abscess/Foreign Bdy Lab Data Result diagrams: 07/27/21 22:45 07/27/21 22:45 Labs: Lab Results 07/27/21 Range/Units 20:47 SARS-CoV-2 (PCR) Negative (Negative) MDM Narrative Medical decision making narrative: IV drug abuser presents with very large and painful abscess on right deltoid. Extensive this would suggest against my ability to appropriately, safely incise and drain this at the bedside, she surgical washout and possible debridement. Patient understands and agrees with plan Discharge Plan Departure Patient Disposition: Admitted as Observation Clinical Impression: Abscess of skin or subcutaneous tissue, IVDU (intravenous drug user) Admit Date/Time: 07/27/21 22:31 Admit Provider: Oliva Baron
--- NOTE | 2021-07-27 16:14 | DI.RAD.S_ITS ---
PROCEDURE: XR HUMERUS RT 2V INDICATIONS: abscess, IVDA, broken needle or other foreign body? TECHNIQUE: 2 views of the humerus were acquired. COMPARISON: [facility], CR, XR HUMERUS LT 2V, 06/10/2021, 18:36. FINDINGS: Bones: No fractures or dislocations. No suspicious bony lesions. Soft tissues: No suspicious soft tissue calcifications. No radiopaque foreign bodies are seen. IMPRESSION: No radiopaque foreign bodies are seen. Dictated by: Klaus Valentine M.D. on 07/27/2021 at 15:56 Approved by: Klaus Valentine M.D. on 07/27/2021 at 15:56
--- NOTE | 2021-07-27 20:40 | PM.HP.1 ---
History of Present Illness History of Present Illness Date Patient Seen: 07/28/21 Time Patient Seen: 10:35 Chief complaint: ABSESS ON RIGHT ARM Narrative: Right deltoid abscess from IVDA, previous left deltoid abscess. h/o MRSA. presents septic with elevated HR, hypotension, elevated WBC, clear infection. difficult IV access. Anemia with hct 30% obese: BMI 30.3 tobacco abuse Patient History Medical History Drug abuse IVDU (intravenous drug user) Obesity (BMI 30.0-34.9) Opioid use disorder Tobacco abuse Surgical History History of appendectomy History of cholecystectomy History of tonsillectomy No pertinent past surgical history Family & Social History Family History Mother Diabetes mellitus Cancer Father SHAYNE (obstructive sleep apnea) Social History: household members significant other Safety & Behavioral: Feels Safe in Current Yes Environment Been Physically Hurt or No Threatened By a Person Tobacco & Substance use: Tobacco type cigarettes Smoking Status Current every day smoker alcohol intake never alcohol intake frequency holiday/special occasion Substance Use Type heroin,methamphetamine Meds Home Medications and Allergies Home Medications Medication Instructions Recorded Confirmed Type No Known Home Medications 07/28/21 07/28/21 History Allergies Allergy/AdvReac Type Severity Reaction Status Date / Time Sulfa (Sulfonamide Allergy Verified 06/10/21 17:13 Antibiotics) Review of Systems Review of Systems Narrative: right deltoid pain ROS: Yes All systems reviewed with the patient and are negative except as otherwise documented Exam Vital Signs (past 8 hours): - 07/27/21 16:10 07/27/21 16:12 07/27/21 16:13 Temperature 98.3 F Pulse Rate 114 H 118 H 107 H Respiratory Rate 18 Blood Pressure 144/65 H 144/66 H Pulse Oximetry 100 96 100 Oxygen Delivery Method Room Air Const General: in distress and disheveled Nutritional Appearance: obese Orientation: alert and oriented x3 HENMT Head: normocephalic and atraumatic Ears: hearing grossly normal bilaterally Eyes General: appearance normal, both eyes and all related structures Sclera: sclerae normal Neck Neck: trachea midline Chest Chest: normal inspection of the chest Resp Effort & Inspection: normal respiratory effort and able to speak in complete sentences Cardio Rate: regular rate Rhythm: regular rhythm Other: hypo tensive GI Inspection: normal to inspection Palpation: soft Skin General: crusts, ecchymosis and erythema Lesions: lesion noted (left deltoid old scar) Hair: brittle and general thinning Neuro General: patient alert and patient oriented x3 Extrem General: full ROM Other: PIC line in left arm, large deltoid abscess in right arm (7cm x 7cm). bruising and tracks on both upper extremities. Psych Appearance: disheveled Mental Status: mental status grossly normal Affect: normal affect Attitude: cooperative Judgment: other (Able to consent, clear ongoing IVDA) Objective Labs Result Diagrams: 07/27/21 22:45 07/27/21 22:45 Assessment & Plan Assessment & Plan narrative: Large right deltoid abscess for IVDA Anemia Sepsis with elevated WBC, fever, hypotension and abscess Obese with BMI 30.3 H/o MRSA Plan: IV antibiotics, I and D of right deltoid abscess. Observe anemia with recommendation of vitamins at home. COVID-19 COVID-19 status: Negative Time Spent With Patient Time with patient: 30 to 49 minutes with 50% spent counseling/coordinating care Critical Care time: I spent a total of [] minutes of critical care time on this patient's care today; this time is exclusive of procedural time.
[2021-07-27 21:22] LABS: COVID19 -Nasal RAPID Negative (Negative)
--- NOTE | 2021-07-27 22:10 | DI.RAD.S_ITS ---
PROCEDURE: XR CHEST FOR PICC 1V INDICATIONS: Verify PICC placement COMPARISON: None. FINDINGS: PICC was placed by the intravenous therapy team from the left side. Fluoroscopic spot film demonstrates the tip of PICC projecting to the area of distal SVC IMPRESSION: Tip of PICC projects to the area of distal SVC from left-sided approach. Reduced inspiratory volume over the chest. This causes crowding of the bronchovascular markings. Dictated by: Lenin Walker M.D. on 07/27/2021 at 22:38 Approved by: Lenin Walker M.D. on 07/27/2021 at 22:39
[2021-07-27 22:51] VITALS: BP 123/67; PULSE 100; RESP 20; O2SAT 100
[2021-07-27 22:54] LABS: Add Manual Diff / Slide Review NO; Basophils Absolute Auto 100 /uL (0-100); Basophils Percent Auto 0.5 % (0-2); Eosinophils Absolute Auto 300 /uL (0-450); Eosinophils Percent Auto 2.3 % (2-4); Hematocrit 30.7 % (36-46); Hemoglobin 10.5 g/dL (12.0-16.0); Lymphocytes Absolute Auto 1800 /uL (1100-4500); Lymphocytes Percent Auto 12.2 % (25-40); Mean Corpuscular HGB Conc 34.1 % (30-36); Mean Corpuscular Hemoglobin 26.5 PG (26-34); Mean Corpuscular Volume 77.5 fL (80-100); Monocytes Absolute Auto 1000 /uL (0-900); Monocytes Percent Auto 7.2 % (3-14); Neutrophils Absolute Auto 11200 /uL (1500-7000); Neutrophils Percent Auto 77.8 % (50-75); Platelet Count 388 X10^3/uL (150-400); Red Blood Cell Count 3.96 X10^6/uL (4.0-5.2); Red Cell Distribution Width 14.8 % (11.6-14.8); White Blood Cell Count 14.4 X10^3/uL (4.5-11.0)
[2021-07-27 23:02] LABS: Alanine Aminotransferase 11 IU/L (<35); Albumin 3.4 g/dL (3.5-5.0); Alkaline Phosphatase 87 U/L (38-126); Aspartate Aminotransferase 18 IU/L (14-36); BUN Creatinine Ratio 21.4 (6-22); Bilirubin Total 0.4 mg/dL (0.2-1.3); Blood Urea Nitrogen 12 mg/dL (7-17); Calcium 8.3 mg/dL (8.4-10.2); Carbon Dioxide 26 mmol/L (22-32); Chloride 102 mmol/L (98-107); Estimated Glomerular Filt Rate > 60.0 mL/min (>60); Globulin 3.5 g/dL (1.7-4.1); Glucose 138 mg/dL (70-100); HEMOLYSIS 17 (0-50); Potassium 3.9 mmol/L (3.4-5.1); Sodium 134 mmol/L (137-145); Total Protein 6.9 g/dL (6.3-8.2)
[2021-07-27 23:09] VITALS: O2SAT 97; BMI 30.3
[2021-07-27 23:16] VITALS: BP 126/101; PULSE 115; RESP 20; TEMP 36.6; O2SAT 100
[2021-07-27] MEDS: LACTATED RINGERS 1,000 ML 100 ML IV (23:22)
[2021-07-27] MEDS: VANCOMYCIN 1,500 MG/300 ML PIGGYBACK 200 MG IV (23:25)
[2021-07-27] MEDS: GABAPENTIN 300 MG CAPSULE PO (23:25)
[2021-07-27] MEDS: KETOROLAC 30 MG/ML VIAL 15 MG IV (23:25)
[2021-07-27] MEDS: OXYCODONE IR 5 MG TABLET 15 MG PO (23:26)
[2021-07-28] VITALS (12 sets, daily range): BP systolic 84–103; BP diastolic 45–59; PULSE 67–91; RESP 13–18; TEMP 35.7–36.7; O2SAT 96–98
--- NOTE | 2021-07-28 00:22 | PC.NURSE ---
admit 2310 pt to AC from ED admitted for infection to [facility]. RUE warm to touch and firm with erythema; boarder drawn to monitor. pt rating pain 10/10; medicated reference EMAR. Tissue damage r/t injections of heroin and meth. Per pt, has noticed pain and swelling x2 weeks. No drainage noted. Elevated on pillows. radial pulse WNL. Denies any numbness/tingling. PICC line to LUE. Blood culture drawn per order. proximal LUE warm, erythemic and firm to touch above pt's previous wound which she was recently hospitalized to treat. pt states since pain started in RU she has been injecting to E lastly before coming into ED today. Pt oriented to room and plan of care. given clear liquids. Bed alarm on. pt has S.O. in room. both deny having any drugs with them. Pt educated that door is to remain open when visitor is present. 0020 BP rechecked by AIRPLANE CAPTAIN and is WNL.
[2021-07-28] MEDS: KETOROLAC 30 MG/ML VIAL 15 MG IV ×2 (05:28→10:11)
[2021-07-28] MEDS: GABAPENTIN 300 MG CAPSULE PO ×2 (05:28→15:53)
[2021-07-28] MEDS: HEPARIN 5,000 UNIT/ML VIAL 5000 UNIT SUBCUT (10:09)
--- NOTE | 2021-07-28 11:02 | CM.DANOTE ---
Discharge Assmt Note: Patient is 36yo female admitted for abscess secondary to IVDA. Pt is assigned to hospitalist team and pending I&D with Dr. Baron (at noon today per pt). Patient reporting having issues with withdrawal symptoms at time of this assmt. Patient's partner in room with patient. Patient reports she is already enrolled in GERBER treatment at [facility] and does not need further assistance with her GERBER disorder. Patient reports no other social needs and reports having stable housing. Patient declines further discussion with care management at this time. INS: [employer] and Medicaid. PCP: none noted Plan: patient is anticipated to discharge home once transitioned to oral antibiotics and I&D is completed. Patient reports having transportation home. Case management to be consulted for any further discharge planning needs. Anthony JOLLEY Discharge Planning/Care Management CM Discharge Assessment Start: 07/28/21 10:59 Freq: Status: Active Protocol: Document 07/28/21 10:59 JORGE A (Rec: 07/28/21 11:02 JORGE A [id number]) Discharge Planning Assessment Assigned Supply And Distribution Manager Anthony JOLLEY DPOA/Assigned Designee Name n/a Contact Information none Advance Directives? No Advance Directives on File No History Provided By Patient,Medical Record Has Patient been admitted in last 30 No days? Comment last inpatient stay 06/10- Prior Living Arrangements Mobile home Household Members significant other Type of transporation used prior to Drives own vehicle admit Independent with ADL's Yes Is patient alert and oriented? Yes Caregiver for Another No Comment GERBER treatment at [facility] Patient/Family Preference Drug/Alcohol Rehab Comment already enrolled at [facility] Barriers to Discharge No Comment DC is pending wound care management- IV abx vs PO abx Discharge Plan Home Transportation Arrangement POV Referrals Initiated None needed Whiteboard Updated in Patient Room with Yes name and ext. # of Supply And Distribution Manager Review Status In Process Next Review Type Continued Stay Review
--- NOTE | 2021-07-28 13:51 | SUR.OPER ---
Supine on Hospital bed, side rails up on non operative side
--- NOTE | 2021-07-28 14:10 | PM.OP.1 ---
Operative Date/Time/Diagnoses Date of procedure: 07/28/21 Time of procedure: 14:11 Pre-op diagnosis: Right deltoid abscess Post-op diagnosis: same Procedure & Clinicians Procedure: Incision and drainage of right deltoid abscess Same procedure as scheduled: Yes Indications: Sepsis with right deltoid abscess Surgeon: Oliva Baron Click Yes if Unassisted: Yes Anesthesia Type: General Operative Notes Findings: Preop diagnosis: Right deltoid abscess Postop diagnosis: Same Operative procedure: I and D of right deltoid abscess Anesthetic: General with LMA intubation Findings: Large subcutaneous complex deltoid abscess. Measure 10 cm by 8 cm. 100 mL of pus evacuated Surgeon: Radha Baron MD Procedure: Patient placed in the supine position, prepped and draped in a sterile fashion. 10. Blade was used to incise the abscess in the most dependent portion. Counter incision was created in the superior portion of the wound. After evacuation of the purulent material with the suction and pressure I placed a silicone quarter-inch Tono drain to looped through the 2 incisions. The drain was tied to itself with a 3-0 nylon. Incisions reapproximated loosely around the drain with same 3-0 nylon. Cultures were taken. Arm was cleaned and wound was dressed with a sterile dressing. Patient was awakened, extubated, taken to recovery room in stable condition with needle, instrument, sponge counts correct. Blood loss: 30 mL Specimen: Right deltoid culture
[2021-07-28] MEDS: OXYCODONE IR 5 MG TABLET 15 MG PO (14:16)
--- NOTE | 2021-07-28 14:28 | SUR.PHASEI ---
Report to [facility]
--- NOTE | 2021-07-28 14:43 | PC.NURSE ---
Post op: Patient return to room 220 from PACU accompanied by Tori COLLINS. Awake, alert, and pleasant, tolerating sips of water. Received on RA, sats 97%, SCDs place on arrival. BP 102/54.
[2021-07-28] MEDS: VANCOMYCIN 1,250 MG/250 ML PIGGYBACK 250 MG IV (15:53)
--- NOTE | 2021-07-28 15:57 | P.DS_ITS ---
History of Present Illness History of Present Illness Date Patient Seen: 07/28/21 Chief complaint: ABSESS ON RIGHT ARM Narrative: Deltoid abscess, right. I and D 07/28 Discharge Providers Provider Date of admission: 07/27/21 22:31 Discharge Date: 07/28/21 Consults: 07/27/21 21:05 Consult After Hours PICC Line RN Stat Comment: Discharge provider: Oliva Baron MD Summary Hospital Course Hospital Course: IV antibiotics, PIC line. I and D in OR with ubaldo drain. Sepsis resolving. Anemia will be observed. Status at Discharge Cognitive/behavioral status at discharge: oriented Functional status at discharge: independent ambulation Overall status at discharge: patient is progressing back to baseline Time Spent with Patient Time spent: Less than 30 minutes Exam Vital Signs (past 8 hours): - 07/28/21 08:00 07/28/21 08:25 07/28/21 11:30 Temperature 96.8 F L 96.3 F L Pulse Rate 76 75 Respiratory Rate 18 Blood Pressure 84/45 L 90/45 L Pulse Oximetry 98 98 98 07/28/21 12:45 07/28/21 14:07 07/28/21 14:12 Temperature 97 F L 96.9 F L Pulse Rate 71 78 73 Respiratory Rate 14 15 14 Blood Pressure 85/54 L 95/55 L 98/54 L Pulse Oximetry 98 98 96 07/28/21 14:17 07/28/21 14:30 07/28/21 14:35 Temperature 97.5 F L Pulse Rate 81 71 82 Respiratory Rate 14 13 16 Blood Pressure 94/58 L 92/55 L 102/54 L Pulse Oximetry 98 98 97 07/28/21 15:00 Temperature 98.0 F Pulse Rate 67 Respiratory Rate 16 Blood Pressure 94/55 L Pulse Oximetry 98 Oxygen Delivery Method Room Air Oxygen Flow Rate 0 Narrative Exam Narrative: right deltoid well drained. Objective Labs Result Diagrams: 07/27/21 22:45 07/27/21 22:45 Labs: Laboratory Results - last 24 hr 07/27/21 07/27/21 07/27/21 20:47 22:45 22:45 WBC 14.4 H RBC 3.96 L Hgb 10.5 L Hct 30.7 L MCV 77.5 L MCH 26.5 MCHC 34.1 RDW 14.8 Plt Count 388 Neut % (Auto) 77.8 H Lymph % (Auto) 12.2 L Bailey % (Auto) 7.2 Eos % (Auto) 2.3 Baso % (Auto) 0.5 Neut # (Auto) 47710 H Lymph # (Auto) 1800 Bailey # (Auto) 1000 H Eos # (Auto) 300 Baso # (Auto) 100 Sodium 134 L Potassium 3.9 Chloride 102 Carbon Dioxide 26 BUN 12 Creatinine 0.56 Estimated GFR > 60.0 BUN/Creatinine Ratio 21.4 Glucose 138 H Calcium 8.3 L Total Bilirubin 0.4 AST 18 ALT 11 Alkaline Phosphatase 87 Total Protein 6.9 Albumin 3.4 L Globulin 3.5 Albumin/Globulin Ratio 1.0 SARS-CoV-2 (PCR) Negative [facility] Medical History Drug abuse IVDU (intravenous drug user) Obesity (BMI 30.0-34.9) Opioid use disorder Tobacco abuse Surgical History History of appendectomy History of cholecystectomy History of tonsillectomy No pertinent past surgical history Family History Mother Diabetes mellitus Cancer Father SHAYNE (obstructive sleep apnea) Social History household members: significant other Smoking Status: Current every day smoker alcohol intake: never substance use type: heroin and IV drugs Discharge Assessment & Plan Assessment and Plan Assessment: septic with Right deltoid abscess 2nd to IVDA. Responded well to draining. Plan of Treatment: Discharge home, dry dressing daily and as needed. May shower. Follow up in one week for drain and suture removal. Discharge Plan Discharge Plan Patient Disposition: Home Discharge orders & Medications Prescriptions: New gabapentin [Neurontin] 300 mg Capsule 300 mg PO Q8HR Qty: 30 0RF hydromorphone 4 mg tablet 4 mg PO Q6H PRN (Reason: pain) Qty: 20 0RF Follow up/Referrals: Oliva Baron MD [Physician] - Diet/Activity/Treatments Diet: Diet as Tolerated Activity: no limit Skin/Wound/Dressing Care Report to your healthcare provider any signs of infection, such as:: chills, fever, increased pain and unusual drainage Dressing: dry dressing daily Visit Report/Discharge Packet Instructions: COLIN for Incision and Drainage Discharge Data Attending Provider: Oliva Baron
[2021-07-28] MEDS: CELECOXIB 200 MG CAPSULE PO (16:52)
== END 2021-07-28 17:15 | disposition home or self-care (01) ==
LOC: ED 21:50 → AC 07-28 08:29
PROVIDERS: Admitting Provider Surgery; Emergency Provider Emergency Medicine; Referring Provider Emergency Medicine; Visit Provider Surgery
PROC: (CPT 10060; principal; 2021-07-28 13:00)
DX: L02.413 Cutaneous abscess of right upper limb (principal); F17.210 Nicotine dependence, cigarettes, uncomplicated; D64.9 Anemia, unspecified; F11.10 Opioid abuse, uncomplicated; Z20.822 Contact with and (suspected) exposure to COVID-19
CPT/HCPCS: 10060; 36415; 36569; 36592; 73060; 80053; 85025; 87040; 87070; 87075; 87077; 87147; 87186; 87205; 87635; 94762; 96365; 96366; 96372; 96375; 99218; 99283; C9803; G0378; J1644; J1885; J2704; J3010

== ENCOUNTER 2024-02-24 14:22 | Emergency (ER) | payer MEDICAID, OTHER, SELFPAY ==
[2024-02-24 14:23] VITALS: BMI 30.3
[2024-02-24 14:47] VITALS: BP 133/85; PULSE 99; RESP 24; TEMP 37.1; O2SAT 100; BMI 22.3
[2024-02-24 17:21] VITALS: BP 102/59
[2024-02-24 17:22] VITALS: PULSE 85; O2SAT 97
[2024-02-24 17:25] VITALS: PULSE 84
[2024-02-24 17:30] VITALS: BP 111/75
--- NOTE | 2024-02-24 17:57 | DI.RAD.S_ITS ---
PROCEDURE: XR HUMERUS RT 2V INDICATIONS: swelling and pain TECHNIQUE: 2 views of the humerus were acquired. COMPARISON: [facility], CR, XR HUMERUS RT 2V, 07/27/2021, 16:10. FINDINGS: Bones: No acute fractures or dislocations. No suspicious bony lesions. Soft tissues: No suspicious soft tissue calcifications. IMPRESSION: No acute osseous abnormality. If there is continued clinical concern or persistent symptoms, repeat radiographs or cross-sectional imaging (e.g. CT, MRI) may be helpful for further evaluation. Approved by: Missael Vazquez M.D. on 02/24/2024 at 19:39
--- NOTE | 2024-02-24 17:57 | DI.US.S_ITS ---
PROCEDURE: US PERIPH VENOUS UP EXTREM RT INDICATIONS: swelling and pain TECHNIQUE: Real-time imaging, as well as color and pulse Doppler interrogation, was performed of the upper extremity deep veins from the inferior neck to the antecubital fossa. COMPARISON: None. FINDINGS: The internal jugular vein, visualized portions of the subclavian vein, axillary, and brachial veins are free of intraluminal thrombus. Where physically possible, the veins are normally compressible. Color and pulse Doppler demonstrate normal intraluminal flow, with expected phasicity and pulsatility. Additional scanning of the cephalic and basilic veins of the superficial system demonstrates normal compressibility, without thrombus. There is a 12 x 4.2 x 11 cm complex fluid collection in the posterior upper arm IMPRESSION: No findings of upper extremity deep venous thrombosis can be seen. Complex fluid collection within the posterior upper arm measuring up to 12 cm concerning for abscess. Dictated by: Nelson High M.D. on 02/24/2024 at 19:32 Approved by: Nelson High M.D. on 02/24/2024 at 19:32
[2024-02-24 18:53] LABS: Add Manual Diff / Slide Review NO; Basophils Absolute Auto 0 /uL (0-100); Basophils Percent Auto 0.1 % (0-2); Eosinophils Absolute Auto 0 /uL (0-450); Eosinophils Percent Auto 0.1 % (2-4); Hematocrit 36.3 % (36-46); Hemoglobin 12.1 g/dL (12.0-16.0); Lymphocytes Absolute Auto 1400 /uL (1100-4500); Lymphocytes Percent Auto 8.1 % (25-40); Mean Corpuscular HGB Conc 33.4 % (30-36); Mean Corpuscular Hemoglobin 27.5 PG (26-34); Mean Corpuscular Volume 82.5 fL (80-100); Monocytes Absolute Auto 1100 /uL (0-900); Monocytes Percent Auto 6.4 % (3-14); Neutrophils Absolute Auto 15000 /uL (1500-7000); Neutrophils Percent Auto 85.3 % (50-75); Platelet Count 333 X10^3/uL (150-400); Red Cell Distribution Width 15.8 % (11.6-14.8); White Blood Cell Count 17.6 X10^3/uL (4.5-11.0)
[2024-02-24] MEDS: MORPHINE 4 MG/ML INJ IV (19:04)
[2024-02-24 19:09] LABS: Alanine Aminotransferase 11 IU/L (<35); Albumin 3.8 g/dL (3.5-5.0); Albumin Globulin Ratio 1.1 (1.0-2.8); Alkaline Phosphatase 107 U/L (38-126); Aspartate Aminotransferase 22 IU/L (14-36); BUN Creatinine Ratio 17.9 (6-22); Bilirubin Total 0.6 mg/dL (0.2-1.3); Blood Urea Nitrogen 10 mg/dL (7-17); Calcium 8.6 mg/dL (8.4-10.2); Carbon Dioxide 22 mmol/L (22-32); Chloride 100 mmol/L (98-107); Estimated Glomerular Filt Rate > 60 mL/min (>60); Globulin 3.5 g/dL (1.7-4.1); Glucose 72 mg/dL (70-100); HEMOLYSIS 19 (0-50); Sodium 132 mmol/L (137-145); Total Protein 7.3 g/dL (6.3-8.2)
[2024-02-24 19:20] LABS: Lactate (Lactic Acid) 0.8 mmol/L (0.7-2.1)
--- NOTE | 2024-02-24 20:02 | ED.SKABFB ---
HPI - Skin/Abscess/Foreign Bdy General Chief complaint: Skin/Abscess/Foreign Body Stated complaint: abcess on arm, poss infection, not doing well Time Seen by Provider: 02/24/24 17:57 Source: patient Mode of arrival: Ambulatory Limitations: no limitations History of Present Illness HPI narrative: Patient is a 38-year-old female who is here for evaluation of potential abscess in her upper arm and concern for an infection. She does inject fentanyl into her arms which is most likely the cause of her possible infection today. She was also concerned about a urinary tract infection. Related Data Previous Rx's Medication Instructions Recorded gabapentin 300 mg capsule 300 mg PO Q8HR #30 caps 07/28/21 (Neurontin) hydromorphone 4 mg tablet 4 mg PO Q6H PRN pain #20 tabs 07/28/21 doxycycline hyclate 100 mg capsule 100 mg PO BID 10 days #20 caps 02/24/24 Allergies Allergy/AdvReac Type Severity Reaction Status Date / Time Sulfa (Sulfonamide Allergy Verified 06/10/21 17:13 Antibiotics) Review of Systems Constitutional Constitutional: Reports system reviewed and no additional complaints, except as documented Gastrointestinal Gastrointestinal: Reports system reviewed and no additional complaints, except as documented Genitourinary Genitourinary: Reports system reviewed and no additional complaints, except as documented Integumentary/Breasts Skin/Breast: Reports system reviewed and no additional complaints, except as documented Neurologic Neurologic: Reports system reviewed and no additional complaints, except as documented Patient History Medical History Tobacco abuse Obesity (BMI 30.0-34.9) IVDU (intravenous drug user) Opioid use disorder Drug abuse Surgical History History of appendectomy History of cholecystectomy History of tonsillectomy No pertinent past surgical history Family History Mother Diabetes mellitus Cancer Father SHAYNE (obstructive sleep apnea) Social History household members: significant other Smoking Status: Current every day smoker alcohol intake: never substance use type: heroin and IV drugs Smoking Status: Current every day smoker tobacco type: cigarettes alcohol intake frequency: holidays/special occasions only Substance Use Type: heroin and opiates Exam Initial Vital Signs Initial Vital Signs: Vital Signs Temperature 98.8 F 02/24/24 14:47 Pulse Rate 99 H 02/24/24 14:47 Respiratory Rate 24 02/24/24 14:47 Blood Pressure 133/85 02/24/24 14:47 Pulse Oximetry 100 02/24/24 14:47 Oxygen Delivery Method Room Air 02/24/24 14:47 Const General: disheveled HENMT Head: normal to inspection Resp Auscultation: clear to auscultation bilaterally Cardio Rate: regular rate Skin Other: A minimal redness to the right upper arm does have fluctuance to the area. Draining wound from the left upper arm Extrem Other: Swelling and pain and fluctuance to the right upper arm. Right shoulder and right elbow are unremarkable. Procedures Abscess I/D I&D #1: Site: upper extremity Side (if applicable): right Local Anesthetic: lidocaine 1% Amount of anesthesia used (mL): 8 Technique: incised with #11 blade Irrigation: No Packing used?: none Complications: pain Course Orders Ordered: ED Orders 02/24/24 17:57 US periph venous up extrem rt Stat XR humerus RT 2V Stat 02/24/24 18:39 Consult to SOCIAL WORK ADMINISTRATOR - Steam Fitter Helper Stat 02/24/24 18:40 Complete Blood Count AUTO DIFF Stat Comprehensive Metabolic Panel Stat MAG [Magnesium] Stat 02/24/24 19:00 Blood Culture Stat Lactate (Lactic Acid) Stat Discontinued Medications Doxycycline Hyclate (Doxycycline Hyclate 100 Mg Tablet) 100 mg PO NOW ONE Stop: 02/24/24 20:03 Last Admin: 02/24/24 20:09 Dose: 100 mg Documented By: Morphine Sulfate (Morphine 4 Mg/Ml Inj) 4 mg IV NOW ONE Stop: 02/24/24 18:00 Last Admin: 02/24/24 19:04 Dose: 4 mg Documented By: Vital Signs Vital signs: Vital Signs - 8 hr 02/24/24 17:21 02/24/24 17:22 02/24/24 17:25 Temperature Pulse Rate 85 84 Respiratory Rate Blood Pressure 102/59 L Pulse Oximetry 97 Oxygen Delivery Method 02/24/24 17:30 02/24/24 20:15 Temperature 98.2 F Pulse Rate 65 Respiratory Rate 18 Blood Pressure 111/75 134/78 Pulse Oximetry 98 Oxygen Delivery Method Room Air MDM - Skin/Abscess/Foreign Bdy Lab Data Attestation: I reviewed the patient's lab results. 02/24/24 18:40 02/24/24 18:40 Labs: Lab Results 02/24/24 02/24/24 Range/Units 18:40 19:00 WBC 17.6 H (4.5-11.0) X10^3/uL RBC 4.40 (4.0-5.2) X10^6/uL Hgb 12.1 (12.0-16.0) g/dL Hct 36.3 (36-46) % MCV 82.5 (80-100) fL MCH 27.5 (26-34) PG MCHC 33.4 (30-36) % RDW 15.8 H (11.6-14.8) % Plt Count 333 (150-400) X10^3/uL Neut % (Auto) 85.3 H (50-75) % Lymph % (Auto) 8.1 L (25-40) % [place]morton % (Auto) 6.4 (3-14) % Eos % (Auto) 0.1 L (2-4) % Baso % (Auto) 0.1 (0-2) % Neut # (Auto) 10808 H (2730-2301) /uL Lymph # (Auto) 1400 (6060-6058) /uL Th[place]morton # (Auto) 1100 H (0-900) /uL Eos # (Auto) 0 (0-450) /uL Baso # (Auto) 0 (0-100) /uL Sodium 132 L (137-145) mmol/L Potassium 4.0 (3.4-5.1) mmol/L Chloride 100 (98-107) mmol/L Carbon Dioxide 22 (22-32) mmol/L BUN 10 (7-17) mg/dL Creatinine 0.56 (0.52-1.04) mg/dL Estimated GFR > 60 (>60) mL/min BUN/Creatinine Ratio 17.9 (6-22) Glucose 72 (70-100) mg/dL Lactate 0.8 (0.7-2.1) mmol/L Calcium 8.6 (8.4-10.2) mg/dL Magnesium 2.0 (1.6-2.3) mg/dL Total Bilirubin 0.6 (0.2-1.3) mg/dL AST 22 (14-36) IU/L ALT 11 (<35) IU/L Alkaline Phosphatase 107 (38-126) U/L Total Protein 7.3 (6.3-8.2) g/dL Albumin 3.8 (3.5-5.0) g/dL Globulin 3.5 (1.7-4.1) g/dL Albumin/Globulin Ratio 1.1 (1.0-2.8) Imaging Data Extremity x-ray #1: Radiologist's Impression: PROCEDURE: XR HUMERUS RT 2V INDICATIONS: swelling and pain TECHNIQUE: 2 views of the humerus were acquired. COMPARISON: [facility], CR, XR HUMERUS RT 2V, 07/27/2021, 16:10. FINDINGS: Bones: No acute fractures or dislocations. No suspicious bony lesions. Soft tissues: No suspicious soft tissue calcifications. IMPRESSION: No acute osseous abnormality. If there is continued clinical concern or persistent symptoms, repeat radiographs or cross-sectional imaging (e.g. CT, MRI) may be helpful for further evaluation. US - DVT: Radiologist's Impression: PROCEDURE: US PERIPH VENOUS UP EXTREM RT INDICATIONS: swelling and pain TECHNIQUE: Real-time imaging, as well as color and pulse Doppler interrogation, was performed of the upper extremity deep veins from the inferior neck to the antecubital fossa. COMPARISON: None. FINDINGS: The internal jugular vein, visualized portions of the subclavian vein, axillary, and brachial veins are free of intraluminal thrombus. Where physically possible, the veins are normally compressible. Color and pulse Doppler demonstrate normal intraluminal flow, with expected phasicity and pulsatility. Additional scanning of the cephalic and basilic veins of the superficial system demonstrates normal compressibility, without thrombus. There is a 12 x 4.2 x 11 cm complex fluid collection in the posterior upper arm IMPRESSION: No findings of upper extremity deep venous thrombosis can be seen. Complex fluid collection within the posterior upper arm measuring up to 12 cm concerning for abscess. [facility] Narrative Medical decision making narrative: Patient has a very obvious abscess to her right upper arm and what appears to be a smaller draining abscess to the left upper arm. Incision and drainage was performed with an extensive amount of purulent material. There is some surrounding erythema. She does have a leukocytosis. Given her presentation will place her on antibiotics. Was given doxycycline. She did not provide us a urine sample but doxycycline should cover a urinary tract infection if 1 is present. First dose was given here in the emergency department and a prescription was sent to the pharmacy of her choice. Patient was given return precautions and follow-up instructions. She expressed understanding and agreement. Discharge Plan Departure Patient Disposition: Home Clinical Impression: Abscess, Cellulitis Instructions: Incision and Drainage of a Skin Abscess, DI for Skin Abscess Activity Restrictions/Additional Instructions: We do expect some drainage from the wound for the next couple days. You will need to change the bandage as needed. Antibiotics for sent to [facility] in [place] per your request. Please take them as directed. You can bathe like normal. Return to the emergency department for new symptoms. Prescriptions: New doxycycline hyclate 100 mg capsule 100 mg PO BID 10 Days Qty: 20 0RF No Action gabapentin [Neurontin] 300 mg Capsule 300 mg PO Q8HR Qty: 30 0RF hydromorphone 4 mg tablet 4 mg PO Q6H PRN (Reason: pain) Qty: 20 0RF Referrals: Oliva Blanco ARNP [Primary Care Provider] - Stand Alone Forms: Patient Portal/API
[2024-02-24] MEDS: DOXYCYCLINE HYCLATE 100 MG TABLET PO (20:09)
[2024-02-24 20:15] VITALS: BP 134/78; PULSE 65; RESP 18; TEMP 36.8; O2SAT 98
== END 2024-02-24 20:17 | disposition home or self-care (01) ==
PROVIDERS: Student in an Organized Health Care Education/Training Program; Emergency Provider Emergency Medicine; PCP Registered Nurse General Practice
DX: L03.113 Cellulitis of right upper limb (principal); L02.413 Cutaneous abscess of right upper limb
CPT/HCPCS: 10060; 36415; 73060; 80053; 83605; 83735; 85025; 87040; 93971; 96374; 99284; J2270